=== PATIENT | female | born 1965 | race Caucasian/White ===

== ENCOUNTER 2016-08-05 14:49 | Emergency (ER) | payer OTHER ==
[2016-08-05 15:09] VITALS: BP 159/96; PULSE 90; TEMP 98.2; BMI 40.3
--- NOTE | 2016-08-05 17:13 | PDOC ---
History of Present Illness - General History Source: Patient Exam Limitations: No Limitations - History of Present Illness Initial Comments: 08/05/16 17:15 The patient is a 50 year old female, with a significant past medical history of asthma, CAD, diabetes, GERD, HTN, hypercholesterolemia, hypothyroidism, anxiety , depression, and bipolar disorder (previous suicide attempts) who was sent to the ER by her PCP and presents to the emergency department with intermittent right flank pain for 2 weeks. The patient reports the pain has been getting increasingly worse. She ranks her pain a 5/10 in pain intensity. She also has chief complaints of right ankle swelling for the st couple of days. Patient is compliant with all her medications. She denies fever, chills, headache and dizziness. She denies nausea, vomit, diarrhea and constipation. Allergies: As per Nursing Notes. Past surgical history: Social history: Current everyday smoker (8 cigarettes a day) PCP: <Mayco Krause - Last Filed: 08/05/16 17:14> <Janes Bartholomew - Last Filed: 08/05/16 19:52> - General Chief Complaint: Back Pain Stated Complaint: LOWER BACK PAIN (KIDNEY) Time Seen by Provider: 08/05/16 15:45 Past History <Mayco Krause - Last Filed: 08/05/16 17:14> - Past Medical History Anemia: No Asthma: Yes Cancer: No Cardiac Disorders: Yes (CAD) CVA: No COPD: No CHF: No Dementia: No Diabetes: Yes GI Disorders: Yes (GERD) Disorders: Yes (dropped bladder) HTN: Yes Hypercholesterolemia: Yes Liver Disease: No Psychiatric Problems: Yes (anxiety, depression, bipolar, past suicide attempts) Suicide Attempt (Hx): No Seizures: No Thyroid Disease: Yes (hypothryoidism ) - Surgical History Abdominal Surgery: Yes (lap band removed,S/P Gastric Sleeve 11/2011,2013. tata negro. Uterine prolap) Appendectomy: No Cardiac Surgery: No Cholecystectomy: Yes GI Surgery: (cystoscopy procedure) Lung Surgery: No Neurologic Surgery: (left elbow nerve release) Orthopedic Surgery: Yes (AGNIESZKA KNEE REPLACEMENT) - Family Disease History Family Disease History: Heart Disease: Father - Immunization History Td Vaccination: Yes Immunization Up to Date: Yes - Psycho/Social/Smoking Cessation Hx Anxiety: Yes Suicidal Ideation: No Smoking Status: Yes Smoking History: Current every day smoker Years of Tobacco Use: 5 Have you smoked in the past 12 months: Yes Number of Cigarettes Smoked Daily: 10 If you are a former smoker, when did you quit?: April 2011 Cigars Per Day: 0 Information on smoking cessation initiated: No 'Breaking Loose' booklet given: 01/21/15 Hx Alcohol Use: No Drug/Substance Use Hx: No Substance Use Type: None Hx Substance Use Treatment: No <Janes Bartholomew - Last Filed: 08/05/16 19:52> - Past Medical History Allergies/Adverse Reactions: Allergies Allergy/AdvReac Type Severity Reaction Status Date / Time iodine [Iodine] Allergy Rash Verified 05/29/16 10:26 CT iv contrats dye Allergy Severe Rash Uncoded 05/29/16 10:26 Home Medications: Ambulatory Orders Albuterol Sulfate Inhaler - [Ventolin HFA Inhaler -] 2 inh IH ASDIR PRN Amlodipine Besylate/Benazepril [Lotrel 5-40 mg Capsule] 10 - 40 mg PO DAILY Aripiprazole [Abilify -] 30 mg PO AM 11/16/14 Bupropion HCl [Wellbutrin Xl -] 300 mg PO AM 11/16/14 Levothyroxine [Synthroid -] 25 mcg PO DAILY 11/16/14 Salmeterol/Fluticasone [Advair 100Mcg/50Mcg -] 1 unit IH DAILY 11/16/14 Exenatide [Byetta] 5 units SQ BID 01/22/15 Atorvastatin Ca [Lipitor] 10 mg PO HS 10/13/15 Sertraline HCl [Zoloft] 100 mg PO DAILY 10/13/15 Levofloxacin [Levaquin] 750 mg PO DAILY #10 tablet 08/05/16 Phenazopyridine HCl [Pyridium] 200 mg PO TID #9 tablet 08/05/16 Review of Systems - Review of Systems Able to Perform ROS?: Yes Comments:: 08/05/16 17:15 GENERAL/CONSTITUTIONAL: No fever or chills. No weakness. HEAD, EYES, EARS, NOSE AND THROAT: No change in vision. No ear pain or discharge. No sore throat. CARDIOVASCULAR: No chest pain or shortness of breath. RESPIRATORY: No cough, wheezing, or hemoptysis. GASTROINTESTINAL: No nausea, vomiting, diarrhea or constipation. GENITOURINARY: No dysuria, frequency, or change in urination. MUSCULOSKELETAL: Yes lower back/flank pain and right foot pain. No joint or muscle swelling or pain. No neck. SKIN: No rash NEUROLOGIC: No headache, vertigo, loss of consciousness, or change in strength/ sensation. ENDOCRINE: No increased thirst. No abnormal weight change. HEMATOLOGIC/LYMPHATIC: No anemia, easy bleeding, or history of blood clots. ALLERGIC/IMMUNOLOGIC: No hives or skin allergy. <Mayco Krause - Last Filed: 08/05/16 17:14> *Physical Exam - Vital Signs Last Vital Signs Temp Pulse Resp BP Pulse Ox 98.2 F 90 16 159/96 98 08/05/16 15:05 08/05/16 15:05 08/05/16 15:05 08/05/16 15:05 08/05/16 15:05 - Physical Exam Comments: 08/05/16 17:15 GENERAL: Awake, alert, and fully oriented, in no acute distress HEAD: No signs of trauma EYES: PERRLA, EOMI, sclera anicteric, conjunctiva clear ENT: Auricles normal inspection, hearing grossly normal, nares patent, oropharynx clear without exudates. Moist mucosa NECK: Normal ROM, supple, no lymphadenopathy, JVD, or masses LUNGS: Breath sounds equal, clear to auscultation bilaterally. No wheezes, and no crackles HEART: Regular rate and rhythm, normal S1 and S2, no murmurs, rubs or gallops ABDOMEN: Soft, nontender, normoactive bowel sounds. No guarding, no rebound. No masses EXTREMITIES: Normal range of motion, no edema. No clubbing or cyanosis. No cords, erythema, or tenderness NEUROLOGICAL: Cranial nerves II through XII grossly intact. Normal speech, normal gait SKIN: Warm, Dry, normal turgor, no rashes or lesions noted. <Mayco Krause - Last Filed: 08/05/16 17:14> - Vital Signs Last Vital Signs Temp Pulse Resp BP Pulse Ox 98.2 F 90 16 159/96 98 08/05/16 15:05 08/05/16 15:05 08/05/16 15:05 08/05/16 15:05 08/05/16 15:05 <Janes Bartholomew - Last Filed: 08/05/16 19:52> ED Treatment Course - LABORATORY CBC & Chemistry Diagram: 08/05/16 17:10 08/05/16 17:10 - RADIOLOGY Radiology Studies Ordered: Category Date Time Status ABDOMEN & PELVIS CT W/O CONTR [CT] Stat CT Scan 08/05/16 17:07 Ordered <Janes Bartholomew - Last Filed: 08/05/16 19:52> *DC/Admit/Observation/Transfer - Attestations Scribe Attestion: 08/05/16 17:15 Documentation prepared by Mayco Krause, acting as medical interpreter for Janes Bartholomew DO. <Mayco Krause - Last Filed: 08/05/16 17:14> - Discharge Dispostion Admit: No - Attestations Physician Attestion: 08/05/16 17:13 I, Dr. Janes Bartholomew, attest that this document has been prepared under my direction and personally reviewed by me in its entirety. I further attest, that it accurately reflects all work, treatment, procedures and medical decision -making performed by me. <Janes Bartholomew - Last Filed: 08/05/16 19:52> Diagnosis at time of Disposition: Urinary tract infection Qualifiers: Urinary tract infection type: site unspecified Hematuria presence: without hematuria Qualified Code(s): N39.0 - Urinary tract infection, site not specified - Discharge Dispostion Disposition: HOME Condition at time of disposition: Good - Prescriptions Prescriptions: Levofloxacin [Levaquin] 750 mg PO DAILY #10 tablet Phenazopyridine HCl [Pyridium] 200 mg PO TID #9 tablet - Referrals Referrals: Rosa Clement MD [Primary Care Provider] - - Patient Instructions Printed Discharge Instructions: DI for Urinary Tract Infection (UTI) Additional Instructions: Gwendolyn- Sorry this is so uncomfortable- THe pyridium will turn your urine orange- Use a pad or panty liner Return to us if any problems Follow up with Dr. Clement next week Best- Dr. Janes Bartholomew
[2016-08-05 17:22] LABS: URINE APPEARANCE CLEAR; URINE BILIRUBIN NEGATIVE (NEGATIVE); URINE BLOOD NEGATIVE (NEGATIVE); URINE COLOR STRAW; URINE GLUCOSE (UA) NEGATIVE (NEGATIVE); URINE KETONE NEGATIVE (NEGATIVE); URINE NITRITE NEGATIVE (NEGATIVE); URINE PROTEIN NEGATIVE (NEGATIVE); URINE UROBILINOGEN NEGATIVE E.U./dl (0.2-1.0)
[2016-08-05 17:23] LABS: BASOPHIL 1.4 % (0-2.0); EOSINOPHIL 5.3 % (0-4.5); MCH 26.4 pg (25.7-33.7); MCHC 32.6 g/dl (32.0-36.0); MEAN CELL VOLUME 80.9 fl (80-96); MEAN PLT VOLUME 8.9 fl (7.5-11.1); NEUTROPHILS 75.3 % (42.8-82.8); PLATELET COUNT 271 K/MM3 (134-434); RDW 15.7 % (11.6-15.6); WHITE BLOOD COUNT 13.1 K/mm3 (4.0-10.0)
[2016-08-05 17:55] LABS: ALBUMIN 3.6 g/dl (3.4-5.0); ALK PHOS 108 U/L (45-117); ANION GAP 12 (8-16); BILIRUBIN,TOTAL 0.3 mg/dL (0.2-1.0); CO2 25 mmol/L (21-32); CREATININE 0.8 mg/dL (0.55-1.02); GLUCOSE,RANDOM 182 mg/dL (74-106); SGOT/AST 14 U/L (15-37); SGPT/ALT 15 U/L (12-78); TOT PROT 7.8 g/dl (6.4-8.2)
[2016-08-05 19:28] LABS: URINE LEUK ESTERASE 2+ (NEGATIVE)
== END 2016-08-05 20:52 | disposition home or self-care (01) ==
LOC: JER 14:49
DX: N39.0 Urinary tract infection, site not specified (principal); F17.210 Nicotine dependence, cigarettes, uncomplicated; Z98.84 Bariatric surgery status; Z96.653 Presence of artificial knee joint, bilateral; I10 Essential (primary) hypertension; Z91.5 Personal history of self-harm; F41.8 Other specified anxiety disorders; E03.9 Hypothyroidism, unspecified
CPT/HCPCS: 36415; 74176-TC; 80053; 81003; 81015; 83690; 85025; 87086; 99283-25

== ENCOUNTER 2017-04-02 15:28 | Emergency (ER) | payer OTHER ==
[2017-04-02 15:41] VITALS: BP 151/81; PULSE 69; TEMP 98; BMI 36.7
[2017-04-02] MEDS ORDERED: SODIUM CHLORIDE 1,000 ML IV ONE (16:16)
[2017-04-02 17:01] LABS: BASOPHIL 0.1 % (0-2.0); EOSINOPHIL 3.4 % (0-4.5); MCH 26.9 pg (25.7-33.7); MCHC 32.7 g/dl (32.0-36.0); MEAN CELL VOLUME 82.2 fl (80-96); MEAN PLT VOLUME 8.6 fl (7.5-11.1); NEUTROPHILS 66.2 % (42.8-82.8); PLATELET COUNT 306 K/MM3 (134-434)
--- NOTE | 2017-04-02 17:02 | PDOC ---
History of Present Illness - General Chief Complaint: Diarrhea Stated Complaint: DIARRHEA Time Seen by Provider: 04/02/17 16:16 History Source: Patient Exam Limitations: No Limitations - History of Present Illness Travel History: No Initial Comments: 04/02/17 17:13 51y F hx of htn, dm, asthma, psoriasis, approx 1 month sp gastric bypass pressents with diarrhea. The pt endorses chronic diarrhea x many months, but states after her bypass she has been having more frequent episodes. it is watery , not bloody/black/tarry. Pt endorses minmal nausea, denies any fever/chills, vomiting, abd pain, back pain, cough, chest pain, sob, diaphoresis. Pt endorses recent admissinon for this at [facility]. her bariatric surgeon is at [place]. No recent travel no sick contacts no recent abx no new meds Past History - Past Medical History Allergies/Adverse Reactions: Allergies Allergy/AdvReac Type Severity Reaction Status Date / Time iodine [Iodine] Allergy Rash Verified 04/02/17 16:51 CT iv contrats dye Allergy Severe Rash Uncoded 04/02/17 16:51 Home Medications: Ambulatory Orders Amlodipine Besylate/Benazepril [Amlodipine-Benazepril 5-10 Mg] 1 each PO DAILY capsule 11/22/12 Albuterol Sulfate Inhaler - [Ventolin HFA Inhaler -] 2 inh IH ASDIR PRN Amlodipine Besylate/Benazepril [Lotrel 5-40 mg Capsule] 10 - 40 mg PO DAILY Aripiprazole [Abilify -] 30 mg PO AM 11/16/14 Bupropion HCl [Wellbutrin Xl -] 300 mg PO AM 11/16/14 Levothyroxine [Synthroid -] 25 mcg PO DAILY 11/16/14 Salmeterol/Fluticasone [Advair 100Mcg/50Mcg -] 1 unit IH DAILY 11/16/14 Exenatide [Byetta] 5 units SQ BID 01/22/15 Atorvastatin Ca [Lipitor] 10 mg PO HS 10/13/15 Sertraline HCl [Zoloft] 100 mg PO DAILY 10/13/15 Phenazopyridine HCl [Pyridium] 200 mg PO TID #9 tablet 08/05/16 Anemia: No Asthma: Yes Cancer: No Cardiac Disorders: Yes (CAD) CVA: No COPD: No CHF: No Dementia: No Diabetes: Yes GI Disorders: Yes (GERD) Disorders: Yes (dropped bladder) HTN: Yes Hypercholesterolemia: Yes Liver Disease: No Psychiatric Problems: Yes (anxiety, depression, bipolar, past suicide attempts) Seizures: No Thyroid Disease: Yes (hypothryoidism ) - Surgical History Abdominal Surgery: Yes (lap band removed,S/P Gastric Sleeve 11/2011,2013. tummy tuck. Uterine prolap) Appendectomy: No Cardiac Surgery: No Cholecystectomy: Yes Gastric Stapling: Yes (gastric bip[ass 02/13/17) GI Surgery: (cystoscopy procedure) Lung Surgery: No Neurologic Surgery: (left elbow nerve release) Orthopedic Surgery: Yes (AGNIESZKA KNEE REPLACEMENT) - Family Disease History Family Disease History: Heart Disease: Father - Immunization History Td Vaccination: Yes Immunization Up to Date: Yes - Suicide/Smoking/Psychosocial Hx Smoking Status: Yes Smoking History: Former smoker Years of Tobacco Use: 5 Have you smoked in the past 12 months: Yes Number of Cigarettes Smoked Daily: 10 If you are a former smoker, when did you quit?: April 2011 Cigars Per Day: 0 Information on smoking cessation initiated: No 'Breaking Loose' booklet given: 01/21/15 Hx Alcohol Use: No Drug/Substance Use Hx: No Substance Use Type: None Hx Substance Use Treatment: No Abd/GI Specific PMHX - Complaint Specific PMHX GERD: Yes Review of Systems - Review of Systems Able to Perform ROS?: Yes Comments:: 04/02/17 17:15 Constitutional - no reported Fever, Chills, HEENT: no reported vision changes, sore throat Respiratory: no reported cough, sob, hemoptysis Cardiac: no reported chest pain, palpitations, light headedness, leg swelling Abd/GI: +diarrhea no reported abd pain, nausea, vomiting, blood per rectum, melena, : no reported dysuria, frequency, discharge Musculskelatal - no reported back pain, joint swelling skin - no reported bruising, erythema, rash neurological: no reported headache, numbness, focal weakness, tingling, ataxia, hematologic: no reported anemia, easy bruising, easy bleeding *Physical Exam - Vital Signs Last Vital Signs Temp Pulse Resp BP Pulse Ox 98 F 69 2 L 151/81 98 04/02/17 15:37 04/02/17 15:37 04/02/17 15:37 04/02/17 15:37 04/02/17 15:37 - Physical Exam Comments: 04/02/17 17:18 GENERAL: The patient is awake, alert, and fully oriented, Nontoxic - in no acute distress. morbidly obese HEAD: Normocephalic, atraumatic. EYES: extraocular movements intact, sclera anicteric, conjunctiva clear. ENT: Normal voice, Moist mucous membranes. NECK: Normal range of motion, supple LUNGS: Breath sounds equal, clear to auscultation bilaterally. No wheezes, no rhonchi, no rales. HEART: Regular rate and rhythm, normal S1 and S2 without murmur, rub or gallop. ABDOMEN: Soft, nontender, normoactive bowel sounds. No guarding, no rebound. . No CVA tenderness EXTREMITIES: Normal range of motion, no edema. No clubbing or cyanosis. No cords, erythema, or tenderness. NEUROLOGICAL: No facial assymetry, Normal speech, PSYCH: Normal mood, normal affect. SKIN: Warm, Dry, normal turgor, ED Treatment Course - LABORATORY CBC & Chemistry Diagram: 04/02/17 16:50 04/02/17 16:50 Medical Decision Making - Medical Decision Making 04/02/17 17:19 51y F presenting with diarrhea w/o pain fever, vomiting pt otherwise well appearing with unremarkable exam vitals normal will obtain blood work to r/o anemia, metabolic dernagement will give fluid for hydration 04/02/17 19:12 pt feeling improved labs unremarkble will hvae pt fu with her GI for her diarrhea I discussed the physical exam findings, ancillary test results and final diagnoses with the patient. I answered all of the patient's questions. The patient was satisfied with the care received and felt comfortable with the discharge plan and treatment plan. The patient will call their primary care physician within 24 hours to arrange follow-up and will return to the Emergency Department with any new, persistent or worsening symptoms. *DC/Admit/Observation/Transfer Diagnosis at time of Disposition: Diarrhea Qualifiers: Diarrhea type: unspecified type Qualified Code(s): R19.7 - Diarrhea, unspecified - Discharge Dispostion Disposition: HOME Condition at time of disposition: Improved Admit: No - Referrals Referrals: William Sutton [Primary Care Provider] - - Patient Instructions Printed Discharge Instructions: DI for Diarrhea and Traveler's Diarrhea -- Adult Additional Instructions: Return to the emergency department immediately with ANY new, persistent or worsening symptoms. You MUST call and follow up with your doctor tomorrow for further evaluation of your symptoms. Results were discussed with you. Please make sure your doctor reviews the results of your emergency evaluation. If you had any xrays during your visit, it was read preliminarily by myself, a Radiologist will review it and if there are any additional findings we will call you. Print Language: ROMANIAN
[2017-04-02 17:03] LABS: URINE APPEARANCE CLOUDY; URINE BILIRUBIN NEGATIVE (NEGATIVE); URINE BLOOD NEGATIVE (NEGATIVE); URINE COLOR YELLOW; URINE GLUCOSE (UA) NEGATIVE (NEGATIVE); URINE KETONE NEGATIVE (NEGATIVE); URINE NITRITE NEGATIVE (NEGATIVE); URINE PROTEIN NEGATIVE (NEGATIVE); URINE UROBILINOGEN NEGATIVE mg/dL (0.2-1.0)
[2017-04-02 18:11] LABS: ALBUMIN 3.8 g/dl (3.4-5.0); ALK PHOS 105 U/L (45-117); ANION GAP 10 (8-16); BILIRUBIN,TOTAL 0.3 mg/dL (0.2-1.0); CO2 24 mmol/L (21-32); CREATININE 0.8 mg/dL (0.55-1.02); GLUCOSE,RANDOM 96 mg/dL (74-106); SGOT/AST 22 U/L (15-37); SGPT/ALT 24 U/L (12-78); TOT PROT 8.3 g/dl (6.4-8.2)
[2017-04-02 22:15] LABS: URINE LEUK ESTERASE 1+ (NEGATIVE)
== END 2017-04-02 19:23 | disposition home or self-care (01) ==
LOC: JER 15:28
PROC: 3E0337Z Introduction of Electrolytic and Water Balance Substance into Peripheral Vein, Percutaneous Approach (ICD-10-PCS; principal; 2017-04-02)
DX: R19.7 Diarrhea, unspecified (principal); J45.909 Unspecified asthma, uncomplicated; E11.9 Type 2 diabetes mellitus without complications; K21.9 Gastro-esophageal reflux disease without esophagitis; F41.8 Other specified anxiety disorders; F31.9 Bipolar disorder, unspecified
CPT/HCPCS: 36415; 80053; 81003; 81015; 85025; 96360; 99282-25

== ENCOUNTER 2017-06-14 05:45 | Emergency (ER) | payer OTHER ==
[2017-06-14 06:01] VITALS: BMI 36.0
--- NOTE | 2017-06-14 06:20 | PDOC ---
History of Present Illness - General Chief Complaint: Pain Stated Complaint: EAR PAIN/HEAD PAIN Time Seen by Provider: 06/14/17 06:07 History Source: Patient Exam Limitations: No Limitations - History of Present Illness Initial Comments: This is a 51 YOF with h/o IDDM, asthma, CAD GERD, HTN, HLD, hypothyroidism, anxiety, depression, and bipolar disorder, and prior attempted suicide who presents with 10/10 right ear pain radiating to the right posterior head since 7pm last night (06/13). She took a Percocet from her 's prior prescription without relief. She also put hydrogen peroxide in the ear and attempted to clean it iwth q-tips. She additionally notes right-sided headache and nausea, but denies any fever, vomiting, chest pain, palpitations, SOB, abdominal pain, trouble balancing, or other symptoms. She had not had ear infections in her adult life. She is supposed to be on medications for HTN and IDDM but states that she has not been taking them because she is depressed. Past History - Past Medical History Allergies/Adverse Reactions: Allergies Allergy/AdvReac Type Severity Reaction Status Date / Time iodine [Iodine] Allergy Rash Verified 06/14/17 06:16 CT iv contrats dye Allergy Severe Rash Uncoded 06/14/17 06:16 Home Medications: Ambulatory Orders Amlodipine Besylate/Benazepril [Amlodipine-Benazepril 5-10 Mg] 1 each PO DAILY capsule 11/22/12 Albuterol Sulfate Inhaler - [Ventolin HFA Inhaler -] 2 inh IH ASDIR PRN Aripiprazole [Abilify -] 30 mg PO AM 11/16/14 Bupropion HCl [Wellbutrin Xl -] 300 mg PO AM 11/16/14 Levothyroxine [Synthroid -] 25 mcg PO DAILY 11/16/14 Salmeterol/Fluticasone [Advair 100Mcg/50Mcg -] 1 unit IH DAILY 11/16/14 Atorvastatin Ca [Lipitor] 10 mg PO HS 10/13/15 Sertraline HCl [Zoloft] 100 mg PO DAILY 10/13/15 Anemia: No Asthma: Yes Cancer: No Cardiac Disorders: Yes (CAD) CVA: No COPD: No CHF: No Dementia: No Diabetes: Yes GI Disorders: Yes (GERD) Disorders: Yes (dropped bladder) HTN: Yes Hypercholesterolemia: Yes Liver Disease: No Psychiatric Problems: Yes (anxiety, depression, bipolar, past suicide attempts) Seizures: No Thyroid Disease: Yes (hypothryoidism ) - Surgical History Abdominal Surgery: Yes (lap band removed,S/P Gastric Sleeve 11/2011,2013. tummy tuck. Uterine prolap) Appendectomy: No Cardiac Surgery: No Cholecystectomy: Yes Gastric Stapling: Yes (gastric bip[ass 02/13/17) GI Surgery: Yes (cystoscopy procedure) Lung Surgery: No Neurologic Surgery: Yes (left elbow nerve release) Orthopedic Surgery: Yes (AGNIESZKA KNEE REPLACEMENT) - Family Disease History Family Disease History: Heart Disease: Father - Immunization History Td Vaccination: Yes Immunization Up to Date: Yes - Suicide/Smoking/Psychosocial Hx Smoking Status: Yes Smoking History: Never smoked Years of Tobacco Use: 5 Have you smoked in the past 12 months: Yes Number of Cigarettes Smoked Daily: 10 If you are a former smoker, when did you quit?: April 2011 Cigars Per Day: 0 Information on smoking cessation initiated: No 'Breaking Loose' booklet given: 01/21/15 Hx Alcohol Use: No Drug/Substance Use Hx: No Substance Use Type: None Hx Substance Use Treatment: No Review of Systems - Review of Systems Able to Perform ROS?: Yes Constitutional: No: Chills, Fever, Unexplained wgt Loss HEENTM: Yes: Ear Pain (right). No: Nose Congestion, Throat Pain Respiratory: No: Cough, Shortness of Breath Cardiac (ROS): No: Chest Pain, Palpitations ABD/GI: No: Constipated, Diarrhea, Nausea, Vomiting : No: Burning, Dysuria Musculoskeletal: No: Back Pain, Neck Pain Integumentary: No: Bruising, Rash Neurological: Yes: Headache. No: Numbness, Tingling, Weakness, Dizziness Endocrine: No: Unexplained Weight Gain, Unexplained Weight Loss *Physical Exam - Vital Signs Last Vital Signs Temp Pulse Resp BP Pulse Ox 98.0 F 63 18 211/83 96 06/14/17 05:58 06/14/17 05:58 06/14/17 05:58 06/14/17 05:58 06/14/17 05:58 - Physical Exam General Appearance: Yes: Nourished, Mild Distress, Other (pleasant but intermittently tearful obese adult female, answering questions appropriatley, states is depressed, smells of marijuana) HEENT: positive: EOMI, JUDAH, Normal Voice, Hearing Grossly Normal, Other ( bilateral cerumen impaction, mild tenderness to manipulation of the right tragus , mild tenderness to percussion of the right mastoid process, riht submandibular mild lymphadenopathy, no sinus tenderness to palpation, ). negative: Scleral Icterus (R), Scleral Icterus (L), Nasal Congestion Neck: positive: Trachea midline, Supple. negative: Tender, Rigid Respiratory/Chest: positive: Lungs Clear, Normal Breath Sounds. negative: Respiratory Distress, Crackles, Rhonchi, Stridor, Wheezing Cardiovascular: positive: Regular Rhythm, Regular Rate. negative: Murmur Gastrointestinal/Abdominal: positive: Normal Bowel Sounds, Soft, Protuberent. negative: Tender, Organomegaly, Pulsatile Mass, Guarding Musculoskeletal: positive: Normal Inspection. negative: Decreased Range of Motion, Vertebral Tenderness Extremity: positive: Normal Capillary Refill, Normal Inspection, Normal Range of Motion. negative: Tender, Cyanosis Integumentary: positive: Normal Color, Dry, Warm. negative: Erythema, Rash, Bruising Neurologic: positive: it sales representative II-XII NML intact (grossly), Fully Oriented, Alert, Normal Mood/Affect, Normal Response, Motor Strength 5/5 ED Treatment Course - LABORATORY CBC & Chemistry Diagram: 06/14/17 06:36 06/14/17 06:36 Medical Decision Making - Medical Decision Making This is a 51 YOF with h/o IDDM, HTN, anxiety, depression, bipolar disorder, prior attempted suicide, p/w right ear pain. On exam VS notable for BP elevated to 211/83, afebrile, otherwise within normal limits. On exam she has bilateral cerumen impaction, right tragus tender to manipulation , right mastoid ttp, right submandubilar LAD. DDX IBNLT right OM/OE, /mastoiditis, sinusitis, temporal arteritis (unlikely), intracranial extension of infection, hypertensive emergency. Ordered is CBCD, CMP, cardiac panel, coags, TSH, EKG, NTG. Patient's ear will be soaked with peroxide and irrigated with warm saline, then re-examined. 06/14/17 07:01 Right ear cerumen is disimpacted and the deep EAC does have some initial redness. Patient's care is signed out to oncoming team awaiting lab results. *DC/Admit/Observation/Transfer Diagnosis at time of Disposition: Earlene galarzaion - Referrals Referrals: William Sutton [Primary Care Provider] - Pipe Levi MD [Staff Physician] - - Patient Instructions - Post Discharge Activity
[2017-06-14] MEDS ORDERED: NITROGLYCERIN SUBLINGUAL 1/150 0.4 MG TAB SL ONE (06:29)
[2017-06-14] MEDS ORDERED: NITROGLYCERIN 2% OINTMENT - 1GM PACKET TD ONE ×2 (06:33→06:44)
--- NOTE | 2017-06-14 06:33 | PDOC ---
Attending Attestation - Resident Resident Name: BrentonStacy - ED Attending Attestation I have performed the following: I have examined & evaluated the patient, The case was reviewed & discussed with the resident, I agree w/resident's findings & plan - HPI HPI: 06/14/17 06:30 Pt comes with bilateral cerumen impaction and bilateral ear pain. She has elevated BP on arrival and states that she doesn't take her DM or HTN meds as she has been sepressed. Her PMD is Dr. Sutton. She smells of marijuana, and when asked she admits that she smokes pot as well as tobacco. Pt is tearful. Pt was given 2 SLNTG. Pt will have labs and EKG and workup, while we attempt to remove wax from her ear canals with peroxide and flushes
[2017-06-14 06:52] LABS: BASO % 1.3 % (0-2.0); EOS % 1.7 % (0-4.5); MCH 26.2 pg (25.7-33.7); MCHC 31.9 g/dl (32.0-36.0); NEUT % 76.6 % (42.8-82.8); PLATELET COUNT 266 K/MM3 (134-434); RDW 14.7 % (11.6-15.6); WHITE BLOOD COUNT 14.3 K/mm3 (4.0-10.0)
[2017-06-14 07:07] LABS: INR 1.14 (0.82-1.09); PROTHROMBIN TIME (PATIENT) 12.9 SEC (9.98-11.88)
[2017-06-14 07:22] LABS: CPK 128 IU/L (26-192); TROPONIN I < 0.02 ng/ml (0.00-0.05)
[2017-06-14 07:30] LABS: ALBUMIN 3.9 g/dl (3.4-5.0); ALK PHOS 111 U/L (45-117); ANION GAP 7 (8-16); BILIRUBIN,TOTAL 0.6 mg/dL (0.2-1.0); CALCIUM 8.9 mg/dL (8.5-10.1); CO2 27 mmol/L (21-32); CREATININE 0.7 mg/dL (0.55-1.02); GLUCOSE,RANDOM 118 mg/dL (74-106); SGOT/AST 15 U/L (15-37); SGPT/ALT 17 U/L (12-78); TOT PROT 8.4 g/dl (6.4-8.2)
--- NOTE | 2017-06-14 07:33 | PDOC ---
*Physical Exam - Vital Signs Last Vital Signs Temp Pulse Resp BP Pulse Ox 98.0 F 63 18 192/80 96 06/14/17 05:58 06/14/17 05:58 06/14/17 05:58 06/14/17 06:24 06/14/17 05:58 - Physical Exam Comments: 06/14/17 09:35 General Appearance: Nourished. No Apparent Distress HEENT: EOMI, JUDAH. No Pharyngeal Erythema, Tonsillar Exudate, Tonsillar Erythema Neck: No Cervical Lymphadenopathy Respiratory/Chest: Lungs Clear, Normal Breath Sounds. No Crackles, Rales, Rhonchi, Wheezing Cardiovascular: Regular Rhythm, Regular Rate. No Murmur, Gallops, Rubs Gastrointestinal/Abdominal: Normal Bowel Sounds, Soft. No Guarding, Rebound, Tenderness Musculoskeletal: No CVA Tenderness Extremity: Normal Capillary Refill Integumentary: Normal Color, Dry, Warm Neurologic: drywall professional II-XII NML intact, Fully Oriented, Alert, Normal Mood/Affect, Normal Response, Motor Strength 5/5. ED Treatment Course - LABORATORY CBC & Chemistry Diagram: 06/14/17 06:36 06/14/17 06:36 - ADDITIONAL ORDERS Additional order review: Laboratory Results 06/14/17 06/14/17 06:36 06:36 PT with INR 12.90 H INR 1.14 PTT (Actin FS) 26.7 L 06/14/17 06:36 RBC 5.34 H MCV 82.0 MCHC 31.9 L RDW 14.7 MPV 9.0 Neutrophils % 76.6 Lymphocytes % 16.1 D Monocytes % 4.3 Eosinophils % 1.7 Basophils % 1.3 D - Medications Given in the ED: ED Medications Discontinued Medications Generic Name Dose Route Start Last Admin Trade Name Freq PRN Reason Stop Dose Admin Nitroglycerin 0.8 mg 06/14/17 06:29 06/14/17 06:40 Nitrostat - SL 06/14/17 06:30 0.8 mg ONCE ONE Administration Nitroglycerin 1 inch 06/14/17 06:33 06/14/17 06:46 Nitro-Bid 2% Paste - TD 06/14/17 06:34 1 inch ONCE ONE Administration Progress Note - Progress Note Progress Note: The patient is a 51 year old female with a history of DM who present for evaluation of sudden onset right ear pain found to have cerum impaction and an elevated BP to over 200 systolic in triage. CBC was remarkable for a leukocytosis, but otherwise lab results are unremarkable. Patient is pending a ct head and temporal bones to evaluate for intracranial process and mastoditis. Dispo pending ct results. Medical Decision Making - Medical Decision Making 06/14/17 11:00 CT results demonstrate signs of acute sinusitis. The patient's symptoms are likely due to a combination of sinusitis and otitis media. The patient reports clinical improvement in her symptoms while here in the ED. We are comfortable discharging the patient home with augmentin for management at this time. We discussed the results and the plan with the patient who voiced understanding and is agreeable with the plan. *DC/Admit/Observation/Transfer Diagnosis at time of Disposition: Cerumen impaction Qualifiers: Laterality: right Qualified Code(s): H61.21 - Impacted cerumen, right ear Otitis media Qualifiers: Otitis media type: unspecified Chronicity: acute Qualified Code(s): H66.90 - Otitis media, unspecified, unspecified ear - Discharge Dispostion Disposition: HOME Condition at time of disposition: Improved Admit: No - Prescriptions Prescriptions: Amox-Tr/K Cl [Augmentin - 875Mg Tablet] 1 tab PO BID #14 tablet Naproxen [Naprosyn -] 500 mg PO BID PRN #14 tablet PRN Reason: Pain - Referrals Referrals: William Sutton [Primary Care Provider] - Pipe Levi MD [Staff Physician] - - Patient Instructions Printed Discharge Instructions: DI for Ear Pain-Adult Additional Instructions: Please return to the ER if you experience concerning or worsening symptoms including worsening fevers, chills, or headache. You were seen in the ER for right ear pain. You lab results demonstrated signs of an infection and your ct scan results were negative. It is likely your symptoms are due to an ear infection. We have sent a prescription of antibiotics to your pharmacy that you should take twice a day for 7 days. We have also sent a prescription for naproxen that you can use as needed for pain management. Please call to schedule a follow up appointment with your primary care provider within 1 week to discuss your ER visit. - Post Discharge Activity
[2017-06-14] MEDS ORDERED: ACETAMINOPHEN 500 MG TABLET (FP) PO ONE (07:51)
[2017-06-14] MEDS ORDERED: ACETAMINOPHEN 325 MG TABLET (FP) ONE (07:55)
[2017-06-14 10:27] VITALS: BP 145/76; PULSE 60; TEMP 98
[2017-06-14 10:41] LABS: URINE MARIJUANA THC POSITIVE ng/ml (CUTOFF=50)
--- NOTE | 2017-06-15 01:26 | EKG ---
Test Reason : Blood Pressure : / mmHG Vent. Rate : 055 BPM Atrial Rate : 055 BPM P-R Int : 138 ms QRS Dur : 092 ms QT Int : 414 ms P-R-T Axes : 066 044 059 degrees QTc Int : 396 ms SINUS BRADYCARDIA OTHERWISE NORMAL ECG WHEN COMPARED WITH ECG OF 22-JAN-2015 07:56, VENT. RATE HAS DECREASED Confirmed by MARK JADE MD ([id number]) on 06/15/2017 1:26:09 AM Referred By: Confirmed By:MARK JADE MD
== END 2017-06-14 09:55 | disposition home or self-care (01) ==
LOC: JER 05:45
DX: H61.21 Impacted cerumen, right ear (principal); I10 Essential (primary) hypertension; E10.9 Type 1 diabetes mellitus without complications; Z79.4 Long term (current) use of insulin; J45.909 Unspecified asthma, uncomplicated; E03.9 Hypothyroidism, unspecified; F41.8 Other specified anxiety disorders; F31.9 Bipolar disorder, unspecified
CPT/HCPCS: 36415; 70450-TC; 70480-TC; 80053; 80307; 82550; 84443; 84484; 85025; 85610; 85730; 93005; 93010; 99283-25

== ENCOUNTER 2017-07-31 18:09 | Emergency (ER) | payer OTHER ==
[2017-07-31 18:37] VITALS: PULSE 72; TEMP 98.7; BMI 35.2
--- NOTE | 2017-07-31 20:21 | PDOC ---
History of Present Illness - General Chief Complaint: Blood Pressure Problem Stated Complaint: BLOOD PRESSURE Time Seen by Provider: 07/31/17 19:09 History Source: Patient Exam Limitations: No Limitations - History of Present Illness Initial Comments: This is a 51 YOF with h/o HTN (not taking her medications x3 days), DM, left arm neuropathic pain, suicide attempt via OD who presents c/o elevated blood pressure at home which is worsened beyond her baseline today, as well as 2-3 hours of constant sweats and mild bitemporal headache. She notes having been seen recently at [facility] for similar symptoms while having simultaneous exacerbated left arm pain, was given an injection of Dilaudid, and got significant relief from this medication. She denies any recent fever, chills, nausea, vomiting, chest pain, shortness of breath, abdominal pain, vision changes, or new numbness/tingling/focal weakness. Past History - Past Medical History Allergies/Adverse Reactions: Allergies Allergy/AdvReac Type Severity Reaction Status Date / Time iodine [Iodine] Allergy Rash Verified 07/31/17 18:22 CT iv contrats dye Allergy Severe Rash Uncoded 07/31/17 18:22 Home Medications: Ambulatory Orders Amlodipine Besylate/Benazepril [Amlodipine-Benazepril 5-10 Mg] 1 each PO DAILY capsule 11/22/12 Albuterol Sulfate Inhaler - [Ventolin HFA Inhaler -] 2 inh IH ASDIR PRN Aripiprazole [Abilify -] 30 mg PO AM 11/16/14 Bupropion HCl [Wellbutrin Xl -] 300 mg PO AM 11/16/14 Levothyroxine [Synthroid -] 25 mcg PO DAILY 11/16/14 Salmeterol/Fluticasone [Advair 100Mcg/50Mcg -] 1 unit IH DAILY 11/16/14 Atorvastatin Ca [Lipitor] 10 mg PO HS 10/13/15 Sertraline HCl [Zoloft] 100 mg PO DAILY 10/13/15 Amox-Tr/K Cl [Augmentin - 875Mg Tablet] 1 tab PO BID #14 tablet 06/14/17 Naproxen [Naprosyn -] 500 mg PO BID PRN #14 tablet 06/14/17 Ciprofloxacin HCl [Cipro] 500 mg PO BID #9 tablet 08/01/17 Anemia: No Asthma: Yes Cancer: No Cardiac Disorders: Yes (CAD) CVA: No COPD: No CHF: No Dementia: No Diabetes: Yes GI Disorders: Yes (GERD) Disorders: Yes (dropped bladder) HTN: Yes Hypercholesterolemia: Yes Liver Disease: No Psychiatric Problems: Yes (anxiety, depression, bipolar, past suicide attempts) Seizures: No Thyroid Disease: Yes (hypothryoidism ) - Surgical History Abdominal Surgery: Yes (lap band removed,S/P Gastric Sleeve 11/2011,2013. tummy tuck. Uterine prolap) Appendectomy: No Cardiac Surgery: No Cholecystectomy: Yes Gastric Stapling: Yes (gastric bip[ass 02/13/17) GI Surgery: Yes (cystoscopy procedure) Lung Surgery: No Neurologic Surgery: Yes (left elbow nerve release) Orthopedic Surgery: Yes (AGNIESZKA KNEE REPLACEMENT) - Family Disease History Family Disease History: Heart Disease: Father - Immunization History Td Vaccination: Yes Immunization Up to Date: Yes - Suicide/Smoking/Psychosocial Hx Smoking Status: Yes Smoking History: Never smoked Years of Tobacco Use: 5 Have you smoked in the past 12 months: No Number of Cigarettes Smoked Daily: 10 If you are a former smoker, when did you quit?: April 2011 Cigars Per Day: 0 Information on smoking cessation initiated: No 'Breaking Loose' booklet given: 01/21/15 Hx Alcohol Use: No Drug/Substance Use Hx: No Substance Use Type: None Hx Substance Use Treatment: No Review of Systems - Review of Systems Able to Perform ROS?: Yes Constitutional: Yes: Diaphoresis. No: Chills, Fever, Unexplained wgt Loss HEENTM: No: Nose Congestion, Throat Pain Respiratory: No: Cough, Shortness of Breath Cardiac (ROS): No: Chest Pain, Palpitations ABD/GI: No: Constipated, Diarrhea, Nausea, Vomiting : No: Burning, Dysuria Musculoskeletal: Yes: Other (left arm pain). No: Back Pain, Neck Pain Integumentary: No: Bruising, Rash Neurological: Yes: Headache. No: Numbness, Tingling, Weakness, Dizziness Endocrine: No: Unexplained Weight Gain, Unexplained Weight Loss *Physical Exam - Vital Signs Last Vital Signs Temp Pulse Resp BP Pulse Ox 98.7 F 72 17 208/104 99 07/31/17 18:23 07/31/17 18:23 07/31/17 18:23 07/31/17 18:23 07/31/17 18:23 - Physical Exam General Appearance: Yes: Nourished, Appropriately Dressed, Obese, Other (alert, awake, not diaphoretic, a bit anxious appearing, central obesity, answering questions appropriately). No: Apparent Distress HEENT: positive: EOMI, JUDAH, Normal Voice, Hearing Grossly Normal. negative: Scleral Icterus (R), Scleral Icterus (L), Nasal Congestion Neck: positive: Trachea midline, Supple. negative: Tender, Rigid Respiratory/Chest: positive: Lungs Clear, Normal Breath Sounds. negative: Respiratory Distress, Crackles, Rhonchi, Stridor, Wheezing Cardiovascular: positive: Regular Rhythm, Regular Rate. negative: Edema, JVD, Murmur Gastrointestinal/Abdominal: positive: Normal Bowel Sounds, Soft, Other (obese). negative: Tender, Organomegaly, Pulsatile Mass, Guarding Musculoskeletal: positive: Normal Inspection. negative: Decreased Range of Motion, Vertebral Tenderness Extremity: positive: Normal Capillary Refill, Normal Inspection, Normal Range of Motion. negative: Tender, Cyanosis Integumentary: positive: Normal Color, Dry, Warm. 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 negative: EOM Palsy, Facial Droop, Numbness, Sensory Deficit, Confused, Disoriented ED Treatment Course - LABORATORY CBC & Chemistry Diagram: 07/31/17 22:00 07/31/17 23:25 Medical Decision Making - Medical Decision Making 08/01/17 00:09 UA is positive for UTI. Head CT without intracranial pathology but shows sinusitis. *DC/Admit/Observation/Transfer Diagnosis at time of Disposition: UTI (urinary tract infection) Qualifiers: Urinary tract infection type: acute cystitis Hematuria presence: with hematuria Qualified Code(s): N30.01 - Acute cystitis with hematuria Sinusitis Qualifiers: Sinusitis location: unspecified location Chronicity: unspecified Qualified Code (s): J32.9 - Chronic sinusitis, unspecified Hypertension Qualifiers: Hypertension type: unspecified Qualified Code(s): I10 - Essential (primary) hypertension Chronic pain Qualifiers: Chronic pain type: other chronic pain Qualified Code(s): G89.29 - Other chronic pain - Discharge Dispostion Disposition: HOME Condition at time of disposition: Stable Admit: No - Prescriptions Prescriptions: Ciprofloxacin HCl [Cipro] 500 mg PO BID #9 tablet - Referrals Referrals: William Sutton [Primary Care Provider] - - Patient Instructions Additional Instructions: You were seen in the ER for high blood pressure and headache. We did basic blood and urine tests, an electrocardiogram, and a head CT. The only abnormalities we found were a urinary tract infection and sinusitis. We are sending an antibiotic to your pharmacy that will treat both the UTI and the sinusitis. Please take your normal blood pressure medications, and follow up with your regular doctor, or return to the ER for any new or worsening symptoms. - Post Discharge Activity
[2017-07-31] MEDS ORDERED: amLODIPine BESYLATE 10 MG TABLET (FP) PO ONE (21:32)
--- NOTE | 2017-07-31 21:33 | PDOC ---
Attending Attestation - HPI HPI: 07/31/17 22:37 The patient is a 51 year old female with a significant past medical history of asthma, IDDM, CAD, GERD, HTN, HLD hypothyroidism, anxiety, depression, and bipolar disorder who presents to the ED with complaints of elevated blood pressure since earlier today. The patient reports she has not taken her BP medication for 3 days notes her blood pressure worsened since then. The patient also reports sweats and worsening chronic left arm pain. She states she received dilaudid several days ago from [facility] with relief to symptoms. Also reports gradual onset bitemporal flores for 3 days with no photophobia. Denies chest pain or shortness of breath. Denies fever or chills. Denies weakness, numbness, abd pain, stiff neck, abd pain, LE edema - Physicial Exam PE: 07/31/17 22:37 GENERAL: Awake, alert, and fully oriented, in no acute distress HEAD: No signs of trauma EYES: PERRLA, EOMI, sclera anicteric, conjunctiva clear ENT: Auricles normal inspection, hearing grossly normal, nares patent, oropharynx clear without exudates. Moist mucosa NECK: Normal ROM, supple, no lymphadenopathy, JVD, or masses LUNGS: Breath sounds equal, clear to auscultation bilaterally. No wheezes, and no crackles HEART: Regular rate and rhythm, normal S1 and S2, no murmurs, rubs or gallops ABDOMEN: Soft, nontender, normoactive bowel sounds. No guarding, no rebound. No masses EXTREMITIES: Normal range of motion, no edema. No clubbing or cyanosis. No cords, erythema, or tenderness BACK: No midline spinal tenderness in cervical/thoracic/lumbar region NEUROLOGICAL: Normal speech, cranial nerves intact, negative pronator drift, 5/ 5 strength in all 4 extremities, normal sensation to light touch in all 4 extremities, normal cerebellar exam, normal gait, normal reflexes and tone SKIN: Warm, Dry, normal turgor, no rashes or lesions noted <León Lau - Last Filed: 07/31/17 22:37> - Resident Resident Name: Stacy Farris - ED Attending Attestation I have performed the following: I have examined & evaluated the patient, The case was reviewed & discussed with the resident, I agree w/resident's findings & plan, Exceptions are as noted - Medical Decision Making 07/31/17 21:32 51-year-old female with a history of hypertension, headache and left arm neuropathy presents with elevated blood pressure after not taking her blood pressure medications for 3 days. She also reports worsening left arm pain. Vitals remarkable for elevated blood pressure 208/104 on my exam. We will obtain basic labs, CT head, and give home dose of blood pressure medication and reassess. 08/01/17 00:[address] scan of the head is negative for acute pathology, and shows possible sinusitis. Given patient's headache is bitemporal and sinuses are not tender to palpation, is unlikely acute sinusitis. Urinalysis with UTI and patient complaining of intermittent frequency. We'll treat with ciprofloxacin. Patient has an appointment with her primary doctor on Wednesday for follow-up. Blood pressure currently is 154/82, I encouraged patient to take her blood pressure medications as prescribed. I discussed the physical exam findings, ancillary test results and final diagnoses with the patient. I answered all of the patient's questions. The patient was satisfied with the care received and felt comfortable with the discharge plan and treatment plan. The patient will call their primary care physician within 24 hours to arrange follow-up and will return to the Emergency Department with any new, persistent or worsening symptoms. <Lam Link - Last Filed: 08/01/17 00:30>
[2017-07-31] MEDS ORDERED: LISINOPRIL 20 MG TABLET (FP) PO ONE (21:37)
[2017-07-31] MEDS ORDERED: amLODIPine BESYLATE 5 MG TABLET (FP) PO ONE (21:45)
[2017-07-31] MEDS ORDERED: LISINOPRIL 20 MG TABLET (FP) ONE (22:08)
[2017-07-31] MEDS ORDERED: ONDANSETRON *ODT* 4 MG TABLET ONE (22:09)
[2017-07-31] MEDS ORDERED: ONDANSETRON 8 MG TABLET (FP) PO ONE (22:11)
[2017-07-31] MEDS ORDERED: GABAPENTIN 300 MG CAPSULE (FP) PO ONE (22:22)
[2017-07-31 22:41] LABS: BASO % 0.6 % (0-2.0); EOS % 7.1 % (0-4.5); HEMATOCRIT 40.4 % (32.4-45.2); LYMPH % 34.1 % (8-40); MCH 26.3 pg (25.7-33.7); MCHC 32.3 g/dl (32.0-36.0); MEAN CELL VOLUME 81.4 fl (80-96); NEUT % 51.2 % (42.8-82.8); PLATELET COUNT 217 K/MM3 (134-434); RBC 4.96 M/mm3 (3.60-5.2); RDW 15.7 % (11.6-15.6); WHITE BLOOD COUNT 9.1 K/mm3 (4.0-10.0)
[2017-07-31 23:36] LABS: URINE APPEARANCE SLCLOUDY; URINE BILIRUBIN NEGATIVE (NEGATIVE); URINE BLOOD 1+ (NEGATIVE); URINE COLOR YELLOW; URINE GLUCOSE (UA) NEGATIVE (NEGATIVE); URINE KETONE NEGATIVE (NEGATIVE); URINE NITRITE POSITIVE (NEGATIVE); URINE UROBILINOGEN NEGATIVE mg/dL (0.2-1.0)
[2017-07-31 23:37] LABS: URINE LEUK ESTERASE 3+ (NEGATIVE); URINE PROTEIN 1+ (NEGATIVE)
[2017-07-31 23:41] LABS: EPI CELLS RARE /HPF (FEW); URINE MUCUS FEW
[2017-07-31] MEDS ORDERED: LEVOFLOXACIN 500 MG TABLET (FP) PO ONE (23:55)
[2017-08-01] LABS: ALBUMIN 3.6 g/dl (3.4-5.0); ANION GAP 9 (8-16); BILIRUBIN,TOTAL 0.2 mg/dL (0.2-1.0); BLOOD UREA NITROGEN 13 mg/dL (7-18); CALCIUM 8.6 mg/dL (8.5-10.1); CHLORIDE 107 mmol/L (98-107); CO2 26 mmol/L (21-32); CREATININE 0.8 mg/dL (0.55-1.02); GLUCOSE,RANDOM 94 mg/dL (74-106); POTASSIUM 3.5 mmol/L (3.5-5.1); SGOT/AST 20 U/L (15-37); SGPT/ALT 22 U/L (12-78); SODIUM 142 mmol/L (136-145); TOT PROT 7.9 g/dl (6.4-8.2)
[2017-08-01 00:03] LABS: ALK PHOS 121 U/L (45-117)
[2017-08-01] MEDS ORDERED: LEVOFLOXACIN 500 MG TABLET (FP) ONE (00:29)
[2017-08-01 00:34] VITALS: BP 154/83
--- NOTE | 2017-08-01 12:26 | EKG ---
Test Reason : Blood Pressure : / mmHG Vent. Rate : 080 BPM Atrial Rate : 080 BPM P-R Int : 146 ms QRS Dur : 090 ms QT Int : 392 ms P-R-T Axes : 039 020 049 degrees QTc Int : 452 ms NORMAL SINUS RHYTHM POSSIBLE LEFT ATRIAL ENLARGEMENT BORDERLINE ECG WHEN COMPARED WITH ECG OF 14-JUN-2017 06:49, T WAVE AMPLITUDE HAS DECREASED IN INFERIOR LEADS QT HAS LENGTHENED CLINICAL CORRELATION IS RECOMMENDED BASELINE ARTIFACT Confirmed by STACIA BATRES, CAMRON ([id number]) on 08/01/2017 12:26:03 PM Referred By: Confirmed By:CAMRON PALOMO MD
--- NOTE | 2017-08-03 07:17 | PDOC ---
Patient Follow-up (Call Back) - Post ED Follow - Up Condition at time of discharge: Stable Disposition at time of original discharge: HOME Reason for Call Back: Abnwl. Microbiology (urine culture preliminary shows non- lactose fermenting GNB. Patient placed on Cipro in the ED. Will await final report.)
== END 2017-08-01 00:34 | disposition home or self-care (01) ==
LOC: JER 18:09
DX: I10 Essential (primary) hypertension (principal); N30.01 Acute cystitis with hematuria; J32.9 Chronic sinusitis, unspecified; Z91.14 Patient's other noncompliance with medication regimen; J45.909 Unspecified asthma, uncomplicated; E11.9 Type 2 diabetes mellitus without complications; E78.00 Pure hypercholesterolemia, unspecified; E03.9 Hypothyroidism, unspecified; F41.9 Anxiety disorder, unspecified; F32.9 Major depressive disorder, single episode, unspecified; F31.9 Bipolar disorder, unspecified; Z91.5 Personal history of self-harm
CPT/HCPCS: 36415; 70450-TC; 80053; 81003; 81015; 82550; 84484; 85025; 87086; 87186; 93005; 93010; 99282-25

== ENCOUNTER 2018-01-01 12:38 | Emergency (ER) | payer OTHER ==
[2018-01-01 12:45] VITALS: BP 162/92; PULSE 76; TEMP 98.3; BMI 34.3
[2018-01-01] MEDS ORDERED: KETOROLAC TROMETHAMINE 30 MG/1 ML VIAL IM ONE (13:04)
--- NOTE | 2018-01-01 13:13 | PDOC ---
History of Present Illness - General Chief Complaint: Pain Stated Complaint: RT HAND PAIN Time Seen by Provider: 01/01/18 13:02 History Source: Patient Exam Limitations: No Limitations - History of Present Illness Initial Comments: 01/01/18 13:05 52 yr female history of depression, anxiety, RLS , chronic hand pain for 3 weeks. Pt followed by told she has restless leg syndrome in her hands. pt taking gabapentin, miriplax, wellbutrin, zoloft with no relief. Past History - Past Medical History Allergies/Adverse Reactions: Allergies Allergy/AdvReac Type Severity Reaction Status Date / Time iodine [Iodine] Allergy Rash Verified 01/01/18 12:45 CT iv contrats dye Allergy Severe Rash Uncoded 01/01/18 12:45 Home Medications: Ambulatory Orders Albuterol Sulfate Inhaler - [Ventolin HFA Inhaler -] 2 inh IH ASDIR PRN Aripiprazole [Abilify -] 5 mg PO AM 11/16/14 Levothyroxine [Synthroid -] 88 mcg PO DAILY 11/16/14 Atorvastatin Ca [Lipitor] 40 mg PO HS 10/13/15 Amlodipine Besylate/Benazepril [Lotrel 5-40 mg Capsule] 1 each PO DAILY Aspirin [Aspirin EC] 81 mg PO DAILY 09/28/17 Carvedilol [Coreg -] 3.125 mg PO BID 09/28/17 Diphenhydramine HCl [Benadryl -] 25 mg PO BID PRN 09/28/17 Escitalopram Oxalate [Lexapro -] 10 mg PO DAILY 09/28/17 Gabapentin Enacarbil [Horizant] 600 mg PO BID 09/28/17 Liraglutide [Victoza -] 1.8 mg SQ DAILY@0700 09/28/17 Meloxicam [Mobic] 15 mg PO BID 09/28/17 Metoprolol Succinate [Toprol Xl] 50 mg PO DAILY 09/28/17 Pantoprazole Sodium [Protonix] 40 mg PO BID 09/28/17 Diazepam [Valium] 5 mg PO Q8H PRN #6 tablet MDD 15mg 01/01/18 Naproxen [Naprosyn -] 500 mg PO BID #14 tablet 01/01/18 Anemia: No Asthma: Yes Cancer: No Cardiac Disorders: Yes (CAD) CVA: No COPD: No CHF: No Dementia: No Diabetes: Yes GI Disorders: Yes (GERD) Disorders: Yes (dropped bladder) HTN: Yes Hypercholesterolemia: Yes Liver Disease: No Psychiatric Problems: Yes (anxiety, depression, bipolar, past suicide attempts) Seizures: No Thyroid Disease: Yes (hypothryoidism ) Other medical history: restless hand syndrome - Surgical History Abdominal Surgery: Yes (lap band removed,S/P Gastric Sleeve 11/2011,2013. tummy tuck. Uterine prolap) Appendectomy: No Cardiac Surgery: No Cholecystectomy: Yes Gastric Stapling: Yes (gastric bip[ass 02/13/17) GI Surgery: Yes (cystoscopy procedure) Lung Surgery: No Neurologic Surgery: Yes (left elbow nerve release) Orthopedic Surgery: Yes (AGNIESZKA KNEE REPLACEMENT) - Family Disease History Family Disease History: Heart Disease: Father - Immunization History Td Vaccination: Yes Immunization Up to Date: Yes - Suicide/Smoking/Psychosocial Hx Smoking Status: Yes Smoking History: Never smoked Years of Tobacco Use: 5 Have you smoked in the past 12 months: No Number of Cigarettes Smoked Daily: 10 If you are a former smoker, when did you quit?: April 2011 Cigars Per Day: 0 Information on smoking cessation initiated: No 'Breaking Loose' booklet given: 01/21/15 Hx Alcohol Use: No Drug/Substance Use Hx: No Substance Use Type: None Hx Substance Use Treatment: No *Physical Exam - Vital Signs Last Vital Signs Temp Pulse Resp BP Pulse Ox 98.3 F 76 18 162/92 99 01/01/18 12:42 01/01/18 12:42 01/01/18 12:42 01/01/18 12:42 01/01/18 12:42 - Physical Exam General Appearance: Yes: Nourished, Appropriately Dressed HEENT: positive: EOMI, JUDAH Musculoskeletal: positive: Normal Inspection Extremity: positive: Normal Capillary Refill, Normal Inspection, Normal Range of Motion, Other (bilateral hands no swelling no deformity nv intact , apin with movement of the fingers.) Integumentary: positive: Normal Color, Dry, Warm Neurologic: positive: Fully Oriented, Alert, Normal Mood/Affect, Normal Response , Motor Strength 5/5 Medical Decision Making - Medical Decision Making 01/01/18 13:24 cc: finger pain chronic will give toradol now pt states the meds she is taking are not helping will prescribe valium for cramping at night strict follow up with her neurologist and her PCP next week pt agrees with plan of care *DC/Admit/Observation/Transfer Diagnosis at time of Disposition: Bilateral hand pain - Discharge Dispostion Disposition: HOME Condition at time of disposition: Good - Prescriptions Prescriptions: Diazepam [Valium] 5 mg PO Q8H PRN #6 tablet MDD 15mg PRN Reason: Muscle Spasms Naproxen [Naprosyn -] 500 mg PO BID #14 tablet - Referrals Referrals: William Sutton [Primary Care Provider] - - Patient Instructions Additional Instructions: follow with and your primary care doctor next week take naprosyn as directed for pain take valium as directed fro any muscle spasm or cramping, this may also help with the pain . - Post Discharge Activity
[2018-01-01] MEDS ORDERED: KETOROLAC TROMETHAMINE 30 MG/1 ML VIAL ONE (13:21)
== END 2018-01-01 13:35 | disposition home or self-care (01) ==
LOC: JERFT 12:38
PROC: 3E0233Z Introduction of Anti-inflammatory into Muscle, Percutaneous Approach (ICD-10-PCS; principal; 2018-01-01)
DX: M79.642 Pain in left hand (principal); M79.641 Pain in right hand; G25.81 Restless legs syndrome; I10 Essential (primary) hypertension; E78.00 Pure hypercholesterolemia, unspecified; E03.9 Hypothyroidism, unspecified; F32.9 Major depressive disorder, single episode, unspecified; F41.9 Anxiety disorder, unspecified; F31.9 Bipolar disorder, unspecified; Z91.5 Personal history of self-harm; Z96.651 Presence of right artificial knee joint; Z96.652 Presence of left artificial knee joint; Z98.84 Bariatric surgery status
CPT/HCPCS: 96372; 99281-25

== ENCOUNTER 2018-01-16 16:45 | Emergency (ER) | payer OTHER ==
[2018-01-16 17:00] VITALS: TEMP 98; BMI 36.0
--- NOTE | 2018-01-16 17:43 | PDOC ---
Attending Attestation - Resident Resident Name: Salud Nicole - ED Attending Attestation I have performed the following: I have examined & evaluated the patient, The case was reviewed & discussed with the resident, I agree w/resident's findings & plan, Exceptions are as noted - HPI HPI: 01/16/18 17:41 52y F hxdm, htm, anxiety, was recent dx of lupus presents with aches in the hands and a facial/arm rash. Endorses some nauseas and generally weak the past few days, chronic diarrhea, feeling lightheaded, palptiations. denies any fever/ chills, cough, cp, abd pain. on exam pt in no distress abd soft nontender, cardiac exam rrr, no mrg pulm cta bl +malar rash will ck basic l abs to r/o anemia, metabolic derangement
[2018-01-16] MEDS ORDERED: ONDANSETRON 4 MG/2 ML VIAL IVPB ONE (18:03)
--- NOTE | 2018-01-16 18:08 | PDOC ---
History of Present Illness - General Chief Complaint: Pain, Acute Stated Complaint: PAIN Time Seen by Provider: 01/16/18 17:23 - History of Present Illness Initial Comments: 01/16/18 18:02 52 year old with recent diagnosis of lupus who presents with ongoing aching of hands and arms for the past month and nausea for the past week with one episode of spit up this AM. She complains of dry mouth, sour taste in her mouth and rash on her R elbow and L rojas. She denies chest pain, headache, abdominal pain , but admits to chronic diarrhea and lightheadedness. She has no other complaints at bedside. PMHX: DM, HTN, asthma, depression, anxiety Meds: insulin, mirapax Allergies: CT dye, percocet, toradol Tob: none Etoh: none Rec drugs: none Past History - Past Medical History Allergies/Adverse Reactions: Allergies Allergy/AdvReac Type Severity Reaction Status Date / Time acetaminophen [From Percocet] Allergy Verified 01/16/18 17:38 iodine [Iodine] Allergy Rash Verified 01/16/18 17:01 ketorolac [From Toradol] Allergy Verified 01/16/18 17:01 oxycodone [From Percocet] Allergy Verified 01/16/18 17:38 CT iv contrats dye Allergy Severe Rash Uncoded 01/16/18 17:01 Home Medications: Ambulatory Orders Albuterol Sulfate Inhaler - [Ventolin HFA Inhaler -] 2 inh IH ASDIR PRN Aripiprazole [Abilify -] 5 mg PO AM 11/16/14 Levothyroxine [Synthroid -] 88 mcg PO DAILY 11/16/14 Atorvastatin Ca [Lipitor] 40 mg PO HS 10/13/15 Amlodipine Besylate/Benazepril [Lotrel 5-40 mg Capsule] 1 each PO DAILY Aspirin [Aspirin EC] 81 mg PO DAILY 09/28/17 Carvedilol [Coreg -] 3.125 mg PO BID 09/28/17 Diphenhydramine HCl [Benadryl -] 25 mg PO BID PRN 09/28/17 Escitalopram Oxalate [Lexapro -] 10 mg PO DAILY 09/28/17 Gabapentin Enacarbil [Horizant] 600 mg PO BID 09/28/17 Liraglutide [Victoza -] 1.8 mg SQ DAILY@00 09/28/17 Meloxicam [Mobic] 15 mg PO BID 09/28/17 Metoprolol Succinate [Toprol Xl] 50 mg PO DAILY 09/28/17 Pantoprazole Sodium [Protonix] 40 mg PO BID 09/28/17 Diazepam [Valium] 5 mg PO Q8H PRN #6 tablet MDD 15mg 01/01/18 Naproxen [Naprosyn -] 500 mg PO BID #14 tablet 01/01/18 Anemia: No Asthma: Yes Cancer: No Cardiac Disorders: Yes (CAD) CVA: No COPD: No CHF: No Dementia: No Diabetes: Yes GI Disorders: Yes (GERD) Disorders: Yes (dropped bladder) HTN: Yes Hypercholesterolemia: Yes Liver Disease: No Psychiatric Problems: Yes (anxiety, depression, bipolar, past suicide attempts) Seizures: No Thyroid Disease: Yes (hypothryoidism ) Other medical history: Lupus - Surgical History Abdominal Surgery: Yes (lap band removed,S/P Gastric Sleeve 11/2011,2013. tummy tuck. Uterine prolap) Appendectomy: No Cardiac Surgery: No Cholecystectomy: Yes Gastric Stapling: Yes (gastric bip[ass 02/13/17) GI Surgery: Yes (cystoscopy procedure) Lung Surgery: No Neurologic Surgery: Yes (left elbow nerve release) Orthopedic Surgery: Yes (AGNIESZKA KNEE REPLACEMENT) - Family Disease History Family Disease History: Heart Disease: Father - Immunization History Td Vaccination: Yes Immunization Up to Date: Yes - Suicide/Smoking/Psychosocial Hx Smoking Status: Yes Smoking History: Never smoked Years of Tobacco Use: 5 Have you smoked in the past 12 months: No Number of Cigarettes Smoked Daily: 10 If you are a former smoker, when did you quit?: April 2011 Cigars Per Day: 0 'Breaking Loose' booklet given: 01/21/15 Hx Alcohol Use: No Drug/Substance Use Hx: No Substance Use Type: None Hx Substance Use Treatment: No Review of Systems - Review of Systems Able to Perform ROS?: Yes Is the patient limited Macedonian proficient: No Constitutional: No: Chills, Diaphoresis, Fever HEENTM: No: Recent change in vision, Tinnitus Respiratory: No: Cough, Shortness of Breath Cardiac (ROS): No: Chest Pain, Palpitations, Chest Tightness ABD/GI: Yes: Diarrhea, Nausea. No: Constipated, Vomiting : No: Burning, Dysuria, Hematuria Musculoskeletal: Yes: Muscle Weakness Neurological: No: Headache, Numbness, Paresthesia, Tingling *Physical Exam - Vital Signs Last Vital Signs Temp Pulse Resp BP Pulse Ox 98.0 F 78 16 151/90 100 01/16/18 16:58 01/16/18 16:58 01/16/18 16:58 01/16/18 16:58 01/16/18 16:58 - Physical Exam Comments: 01/16/18 18:08 GENERAL: Awake, alert, and fully oriented, in no acute distress HEAD: No signs of trauma, normocephalic, atraumatic EYES: EOMI, sclera anicteric, conjunctiva clear ENT: oropharynx clear without exudates. Moist mucosa NECK: Normal ROM LUNGS: No distress, speaks full sentences, clear to auscultation bilaterally HEART: Regular rate and rhythm, normal S1 and S2, no murmurs, rubs or gallops, peripheral pulses normal and equal bilaterally. ABDOMEN: Soft, nontender, normoactive bowel sounds. No guarding, no rebound. No masses EXTREMITIES : Normal inspection, Normal range of motion, no edema. No clubbing or cyanosis. + slight erythema on knuckles bilaterally NEUROLOGICAL: Normal speech, normal gait, no focal sensorimotor deficits SKIN: Warm, Dry, normal turgor, no rashes or lesions, + dry skin on R rojas, + R elbow excoriations ED Treatment Course - LABORATORY CBC & Chemistry Diagram: 01/16/18 19:30 01/16/18 18:02 Medical Decision Making - Medical Decision Making 01/16/18 18:10 52 year old with recent diagnosis of lupus who presents with ongoing aching of hands and arms for the past month and nausea for the past week with one episode of spit up this AM. Patient likely has aching secondary to lupus as she has not followed up with PCP for lupus treatment and regimen. We will treat symptomatically and assess for possible causes of weakness such as anemia and dehydration. - CBC, CMP 01/16/18 18:13 Patient given Tylenol for relief, she denies any allergy. 01/16/18 19:07 WBC: 11.6 / platelets: 55 Repeat CBC showed platelets of 52. The patient is clinically stable, no acute distress, has no signs of bleeds and has stable vitals. She was counseled regarding her changed lab values and given referral for hematology and oncology to further evaluate the etiology for her decreased platelets. She was advised to have close follow up with her PCP to manage her lupus and her lab value changes. *DC/Admit/Observation/Transfer Diagnosis at time of Disposition: Lupus (systemic lupus erythematosus) - Discharge Dispostion Disposition: HOME Condition at time of disposition: Guarded Decision to Admit order: No - Referrals Referrals: Quincy Laguna MD [Staff Physician] - - Patient Instructions Printed Discharge Instructions: DI for Systemic Lupus Erythematosus Additional Instructions: You were seen in the ED for complaints of aching in the hands. You were treated for symptomatic relief and labs were drawn to evaluate blood levels. You were found to have low platelets and will be given a referral to a apartment maintenance manager today and advised to f.u with hematology and your PCP within the next week. Return to the ED immediately if symptoms worsen, fever develops, nausea. vomiting, loss of consciousness. - Post Discharge Activity
[2018-01-16] MEDS ORDERED: ACETAMINOPHEN 1000 MG/100 ML VIAL (NON FORMULARY) IVPB ONE (18:12)
[2018-01-16] MEDS ORDERED: SODIUM CHLORIDE 1,000 ML IV SCH (18:15)
[2018-01-16 18:22] LABS: BASO % 0.8 % (0-2.0); EOS % 4.7 % (0-4.5); HEMATOCRIT 38.9 % (32.4-45.2); HEMOGLOBIN 12.7 GM/dL (10.7-15.3); LYMPH % 22.6 % (8-40); MCH 26.2 pg (25.7-33.7); MCHC 32.8 g/dl (32.0-36.0); MEAN CELL VOLUME 79.8 fl (80-96); MEAN PLT VOLUME 11.4 fl (7.5-11.1); MONO % 5.5 % (3.8-10.2); NEUT % 66.4 % (42.8-82.8); PLATELET COUNT 55 K/MM3 (134-434); RBC 4.87 M/mm3 (3.60-5.2); RDW 15.9 % (11.6-15.6); WHITE BLOOD COUNT 11.4 K/mm3 (4.0-10.0)
[2018-01-16] MEDS ORDERED: ACETAMINOPHEN INJECTION 100 ML IVPB ONE (18:30)
[2018-01-16 18:53] LABS: ALBUMIN 3.9 g/dl (3.4-5.0); ALK PHOS 116 U/L (45-117); ANION GAP 7 (8-16); BILIRUBIN,TOTAL 0.3 mg/dL (0.2-1.0); BLOOD UREA NITROGEN 16 mg/dL (7-18); CALCIUM 8.9 mg/dL (8.5-10.1); CHLORIDE 109 mmol/L (98-107); CO2 29 mmol/L (21-32); CREATININE 0.6 mg/dL (0.55-1.02); GLUCOSE,RANDOM 83 mg/dL (74-106); POTASSIUM 3.8 mmol/L (3.5-5.1); SGOT/AST 18 U/L (15-37); SGPT/ALT 18 U/L (12-78); SODIUM 145 mmol/L (136-145); TOT PROT 7.8 g/dl (6.4-8.2)
--- NOTE | 2018-01-16 19:24 | PDOC ---
*Physical Exam - Vital Signs Last Vital Signs Temp Pulse Resp BP Pulse Ox 98.0 F 78 16 151/90 100 01/16/18 16:58 01/16/18 16:58 01/16/18 16:58 01/16/18 16:58 01/16/18 16:58 ED Treatment Course - LABORATORY CBC & Chemistry Diagram: 01/16/18 18:02 01/16/18 18:02 - ADDITIONAL ORDERS Additional order review: Laboratory Results 01/16/18 18:02 Sodium 145 Potassium 3.8 Chloride 109 H Carbon Dioxide 29 Anion Gap 7 L BUN 16 Creatinine 0.6 Creat Clearance w eGFR > 60 Random Glucose 83 Calcium 8.9 Total Bilirubin 0.3 AST 18 ALT 18 Alkaline Phosphatase 116 Total Protein 7.8 Albumin 3.9 01/16/18 18:02 RBC 4.87 MCV 79.8 L MCHC 32.8 RDW 15.9 H MPV 11.4 H D Neutrophils % 66.4 D Lymphocytes % 22.6 D Monocytes % 5.5 Eosinophils % 4.7 H Basophils % 0.8 - Medications Given in the ED: ED Medications Discontinued Medications Generic Name Dose Route Start Last Admin Trade Name Eduardoq PRN Reason Stop Dose Admin Acetaminophen 1,000 mg 01/16/18 18:12 01/16/18 18:28 Ofirmev Injection - IVPB 01/16/18 18:13 1,000 mg ONCE ONE Administration Ondansetron HCl 8 mg 01/16/18 18:03 01/16/18 18:07 Zofran Injection IVPB 01/16/18 18:04 8 mg ONCE ONE Administration *DC/Admit/Observation/Transfer Diagnosis at time of Disposition: Lupus (systemic lupus erythematosus) - Discharge Dispostion Disposition: HOME Condition at time of disposition: Guarded - Referrals - Patient Instructions - Post Discharge Activity
[2018-01-16 19:26] VITALS: BP 146/85; PULSE 60
[2018-01-16 19:43] LABS: BASO % 0.6 % (0-2.0); EOS % 4.8 % (0-4.5); HEMATOCRIT 37.1 % (32.4-45.2); HEMOGLOBIN 12.2 GM/dL (10.7-15.3); LYMPH % 25.6 % (8-40); MCH 26.2 pg (25.7-33.7); MCHC 32.8 g/dl (32.0-36.0); MONO % 5.9 % (3.8-10.2); NEUT % 63.1 % (42.8-82.8); RBC 4.64 M/mm3 (3.60-5.2); RDW 15.9 % (11.6-15.6); WHITE BLOOD COUNT 10.4 K/mm3 (4.0-10.0)
[2018-01-16 20:18] LABS: MEAN PLT VOLUME 11.5 fl (7.5-11.1); PLATELET COUNT 52 K/MM3 (134-434); PLATELET ESTIMATE MOD DECREASED
[2018-01-16 20:25] LABS: PLATELET ESTIMATE MOD DECREASED
== END 2018-01-16 21:12 | disposition home or self-care (01) ==
LOC: JER 16:45
PROC: 3E033GC Introduction of Other Therapeutic Substance into Peripheral Vein, Percutaneous Approach (ICD-10-PCS; principal; 2018-01-16)
PROC: 3E033NZ Introduction of Analgesics, Hypnotics, Sedatives into Peripheral Vein, Percutaneous Approach (ICD-10-PCS; 2018-01-16)
PROC: 3E0337Z Introduction of Electrolytic and Water Balance Substance into Peripheral Vein, Percutaneous Approach (ICD-10-PCS; 2018-01-16)
DX: M32.9 Systemic lupus erythematosus, unspecified (principal); E11.9 Type 2 diabetes mellitus without complications; Z79.4 Long term (current) use of insulin; F41.9 Anxiety disorder, unspecified; F32.9 Major depressive disorder, single episode, unspecified; E03.9 Hypothyroidism, unspecified; F31.9 Bipolar disorder, unspecified; Z91.5 Personal history of self-harm; Z96.653 Presence of artificial knee joint, bilateral; Z98.84 Bariatric surgery status
CPT/HCPCS: 36415; 80053; 85025; 99284-25; J0131; J7030

== ENCOUNTER 2020-11-21 15:26 | Emergency (ER) | payer OTHER ==
[2020-11-21 15:44] VITALS: TEMP 97.7; BMI 35.3
[2020-11-21] MEDS ORDERED: TAMSULOSIN HCL 0.4 MG CAP PO ONE (16:27)
[2020-11-21] MEDS ORDERED: TAMSULOSIN HCL 0.4 MG CAP ONE (17:15)
[2020-11-21 17:29] LABS: BASO % 0.3 % (0-2.0); EOS % 1.8 % (0-4.5); HEMATOCRIT 36.5 % (32.4-45.2); HEMOGLOBIN 12.1 GM/dL (10.7-15.3); LYMPH % 22.5 % (8-40); MCH 27.6 pg (25.7-33.7); MEAN CELL VOLUME 83.7 fl (80-96); MEAN PLT VOLUME 9.8 fl (7.5-11.1); MONO % 6.7 % (3.8-10.2); NEUT % 68.7 % (42.8-82.8); PLATELET COUNT 140 K/MM3 (134-434); RBC 4.36 M/mm3 (3.60-5.2); WHITE BLOOD COUNT 7.7 K/mm3 (4.0-10.0)
[2020-11-21 17:33] LABS: EPI CELLS 31 /uL (0-25.1); HYALINE CASTS 2 /uL (0-3.1); URINE APPEARANCE TURBID; URINE BACTERIA 180 /uL (0-1359); URINE BILIRUBIN NEGATIVE (NEGATIVE); URINE COLOR YELLOW; URINE GLUCOSE (UA) NEGATIVE (NEGATIVE); URINE KETONE TRACE (NEGATIVE); URINE LEUK ESTERASE 3+ (NEGATIVE); URINE NITRITE NEGATIVE (NEGATIVE); URINE PROTEIN TRACE (NEGATIVE); URINE UROBILINOGEN 0.2 mg/dL (0.2-1.0); URINE WBC 2117 /uL (0-25.8)
[2020-11-21] MEDS ORDERED: PHENAZOPYRIDINE HCL 100 MG TABLET (FP) PO ONE (17:40)
[2020-11-21 17:50] LABS: BLOOD UREA NITROGEN 18.6 mg/dL (7-18); CALCIUM 8.8 mg/dL (8.5-10.1)
[2020-11-21] MEDS ORDERED: PHENAZOPYRIDINE HCL 100 MG TABLET (FP) ONE (17:50)
[2020-11-21 17:51] LABS: ALBUMIN 3.4 g/dl (3.4-5.0)
[2020-11-21 17:55] LABS: BILIRUBIN,TOTAL 0.3 mg/dL (0.2-1); TOT PROT 7.3 g/dl (6.4-8.2)
[2020-11-21] MEDS ORDERED: MEROPENEM 1 GM in DEXTROSE 5%-WATER 100 ML IVPB ONE (18:02)
[2020-11-21 18:18] LABS: URINE RBC 27.2 /uL (0-23.9)
[2020-11-21] MEDS ORDERED: MEROPENEM 1 GM VIAL (RESTRICTED TO ID) IVPB ONE (19:33)
[2020-11-21 21:57] VITALS: BP 114/66; PULSE 65
== END 2020-11-21 21:58 | disposition home or self-care (01) ==
LOC: JER 15:26
DX: N30.00 Acute cystitis without hematuria (principal); R10.30 Lower abdominal pain, unspecified; E11.9 Type 2 diabetes mellitus without complications
CPT/HCPCS: 36415; 74176-TC; 80053; 81003; 85025; 87086; 99284-25; C9803; U0003; U0005

== ENCOUNTER 2021-01-01 18:30 | Observation (INO) | payer OTHER ==
[2021-01-01 22:16] LABS: HEMOGLOBIN 12.2 GM/dL (10.7-15.3); LYMPH % 37.3 % (8-40); MCH 27.7 pg (25.7-33.7); MCHC 32.1 g/dl (32.0-36.0); MEAN CELL VOLUME 86.5 fl (80-96); MEAN PLT VOLUME 9.6 fl (7.5-11.1); NEUT % 49.7 % (42.8-82.8); PLATELET COUNT 194 10^3/uL (134-434); RBC 4.39 M/mm3 (3.60-5.2); RDW 18.3 % (11.6-15.6); WHITE BLOOD COUNT 9.1 K/mm3 (4.0-10.0)
[2021-01-01 22:26] LABS: COCAINE, UR NEGATIVE (NEGATIVE); METHADONE, UR NEGATIVE (NEGATIVE); OPIATES, URI NEGATIVE (NEGATIVE); PHENCYCLIDINE,URINE NEGATIVE (NEGATIVE); URINE BENZODIAZEPINES NEGATIVE (NEGATIVE)
[2021-01-01 22:27] LABS: URINE AMPHETAMINES POSITIVE (NEGATIVE); URINE BARBITURATES NEGATIVE (NEGATIVE)
[2021-01-01 22:35] LABS: CHLORIDE 110 mmol/L (98-107); SODIUM 142 mmol/L (136-145)
[2021-01-01 22:39] LABS: ALBUMIN 3.6 g/dl (3.4-5.0); ANION GAP 7 MMOL/L (8-16); BLOOD UREA NITROGEN 24.6 mg/dL (7-18); CALCIUM 8.5 mg/dL (8.5-10.1); CO2 26 mmol/L (21-32); GLUCOSE,RANDOM 70 mg/dL (74-106)
[2021-01-01 22:40] LABS: MAGNESIUM 2.7 mg/dL (1.8-2.4)
[2021-01-01 22:42] LABS: CREATININE 0.8 mg/dL (0.55-1.3); PHOSPHOROUS 4.4 mg/dL (2.5-4.9); SGPT/ALT 22 U/L (13-61)
[2021-01-01 22:43] LABS: SGOT/AST 32 U/L (15-37)
[2021-01-01 22:44] LABS: BILIRUBIN,TOTAL 0.6 mg/dL (0.2-1); TOT PROT 7.5 g/dl (6.4-8.2)
[2021-01-01 22:45] LABS: ALK PHOS 105 U/L (45-117)
[2021-01-01 22:55] LABS: EPI CELLS 33 /uL (0-25.1); HYALINE CASTS 32 /uL (0-3.1); URINE APPEARANCE CLOUDY; URINE BACTERIA 519 /uL (0-1359); URINE BILIRUBIN NEGATIVE (NEGATIVE); URINE COLOR YELLOW; URINE GLUCOSE (UA) NEGATIVE (NEGATIVE); URINE KETONE TRACE (NEGATIVE); URINE LEUK ESTERASE 2+ (NEGATIVE); URINE NITRITE NEGATIVE (NEGATIVE); URINE PROTEIN TRACE (NEGATIVE); URINE WBC 382 /uL (0-25.8)
[2021-01-02 00:11] LABS: URINE RBC 80.4 /uL (0-23.9)
[2021-01-02 00:12] LABS: URINE CRYSTALS FEW /hpf
[2021-01-02] MEDS ORDERED: INSULIN SLIDING SCALE (NOVOLOG) 1 VIAL SQ SCH (07:00)
[2021-01-02 08:42] VITALS: BMI 36.0
[2021-01-02 09:00] LABS: BASO % 0.5 % (0-2.0); HEMATOCRIT 35.7 % (32.4-45.2); HEMOGLOBIN 11.8 GM/dL (10.7-15.3); LYMPH % 23.7 % (8-40); MCH 28.2 pg (25.7-33.7); MCHC 33.2 g/dl (32.0-36.0); MEAN PLT VOLUME 9.2 fl (7.5-11.1); MONO % 7.6 % (3.8-10.2); NEUT % 65.2 % (42.8-82.8); PLATELET COUNT 146 10^3/uL (134-434); RDW 17.9 % (11.6-15.6); WHITE BLOOD COUNT 7.8 K/mm3 (4.0-10.0)
[2021-01-02] MEDS: INSULIN SLIDING SCALE (NOVOLOG) 1 VIAL SQ SCH ×3 (09:05→17:51)
[2021-01-02 09:30] LABS: ALBUMIN 3.5 g/dl (3.4-5.0)
[2021-01-02 09:31] LABS: BLOOD UREA NITROGEN 19.6 mg/dL (7-18); CALCIUM 8.7 mg/dL (8.5-10.1)
[2021-01-02 09:34] LABS: CREATININE 0.7 mg/dL (0.55-1.3); MAGNESIUM 2.7 mg/dL (1.8-2.4); PHOSPHOROUS 4.5 mg/dL (2.5-4.9)
[2021-01-02 09:35] LABS: BILIRUBIN,TOTAL 0.4 mg/dL (0.2-1); TOT PROT 7.1 g/dl (6.4-8.2)
[2021-01-02] MEDS ORDERED: [UNRECOGNIZED DRUG - OTHER] PO SCH (10:00)
[2021-01-02] MEDS ORDERED: FOLIC ACID PO SCH (10:00)
[2021-01-02] MEDS ORDERED: GABAPENTIN 400 MG CAPSULE PO SCH ×3 (10:00)
[2021-01-02] MEDS ORDERED: LURASIDONE HCL 40 MG TABLET PO SCH (10:00)
[2021-01-02] MEDS ORDERED: MULTIVIT MIN PO SCH (10:00)
[2021-01-02] MEDS ORDERED: IRON PO SCH (10:00)
[2021-01-02] MEDS: amLODIPine BESYLATE 10 MG TABLET (FP) PO SCH (12:28)
[2021-01-02] MEDS: lamoTRIgine 100 MG TABLET PO SCH (12:28)
[2021-01-02] MEDS: LOSARTAN POTASSIUM 50 MG TABLET PO SCH (12:28)
[2021-01-02] MEDS: CHOLECALCIFEROL (VIT D3) 1,000 UNIT (25 MCG) TABLET PO SCH (12:29)
[2021-01-02] MEDS: GABAPENTIN 300 MG CAPSULE PO SCH ×2 (12:29→21:41)
[2021-01-02] MEDS: ENOXAPARIN NA (PORCINE) 40 MG/0.4 ML DISP.SYRIN SQ SCH (12:29)
[2021-01-02] MEDS: PANTOPRAZOLE 40 MG TABLET PO SCH (12:29)
[2021-01-02] MEDS: clonazePAM 2 MG TABLET PO SCH (21:41)
[2021-01-02] MEDS ORDERED: ATORVASTATIN CA 20 MG TABLET (FP) PO SCH (22:00)
[2021-01-03] MEDS: clonazePAM 2 MG TABLET PO SCH (06:25)
[2021-01-03] MEDS: INSULIN SLIDING SCALE (NOVOLOG) 1 VIAL SQ SCH ×2 (06:27→11:34)
[2021-01-03 09:14] LABS: HEMATOCRIT 38.8 % (32.4-45.2); HEMOGLOBIN 12.3 GM/dL (10.7-15.3); MCH 27.6 pg (25.7-33.7); MCHC 31.8 g/dl (32.0-36.0); MEAN CELL VOLUME 86.8 fl (80-96); MEAN PLT VOLUME 9.7 fl (7.5-11.1); PLATELET COUNT 148 10^3/uL (134-434); RBC 4.46 M/mm3 (3.60-5.2); RDW 17.9 % (11.6-15.6); WHITE BLOOD COUNT 8.9 K/mm3 (4.0-10.0)
[2021-01-03 09:34] LABS: CALCIUM 8.7 mg/dL (8.5-10.1)
[2021-01-03 09:35] LABS: ALBUMIN 3.5 g/dl (3.4-5.0); BLOOD UREA NITROGEN 17.7 mg/dL (7-18); MAGNESIUM 2.5 mg/dL (1.8-2.4)
[2021-01-03 09:38] LABS: CREATININE 0.8 mg/dL (0.55-1.3); PHOSPHOROUS 3.8 mg/dL (2.5-4.9)
[2021-01-03 09:40] LABS: BILIRUBIN,TOTAL 0.4 mg/dL (0.2-1); TOT PROT 7.2 g/dl (6.4-8.2)
[2021-01-03] MEDS ORDERED: GABAPENTIN 400 MG CAPSULE PO SCH (10:00)
[2021-01-03] MEDS: LOSARTAN POTASSIUM 50 MG TABLET PO SCH (10:09)
[2021-01-03] MEDS: CHOLECALCIFEROL (VIT D3) 1,000 UNIT (25 MCG) TABLET PO SCH (10:10)
[2021-01-03] MEDS: lamoTRIgine 100 MG TABLET PO SCH (10:10)
[2021-01-03] MEDS: PANTOPRAZOLE 40 MG TABLET PO SCH (10:10)
[2021-01-03] MEDS: amLODIPine BESYLATE 10 MG TABLET (FP) PO SCH (10:10)
[2021-01-03 11:18] VITALS: BP 130/70; PULSE 82; TEMP 98.4
[2021-01-03] MEDS: ENOXAPARIN NA (PORCINE) 40 MG/0.4 ML DISP.SYRIN SQ SCH (11:34)
== END 2021-01-03 12:05 | disposition home or self-care (01) ==
LOC: JER 18:30 → INTOOBSV 01-02 01:10 → UNDOADMOB 01-02 01:10 → JERBED 01-02 01:10 → J8W 01-02 08:04 → JERBED 01-02 08:04 → J8W 01-02 13:43
PROVIDERS: ADMIT Internal Medicine; ATTEND Student in an Organized Health Care Education/Training Program
DX: G40.89 Other seizures (principal); M32.9 Systemic lupus erythematosus, unspecified; I10 Essential (primary) hypertension; E11.9 Type 2 diabetes mellitus without complications; E78.5 Hyperlipidemia, unspecified; E03.9 Hypothyroidism, unspecified; F41.8 Other specified anxiety disorders; F31.9 Bipolar disorder, unspecified; E66.8 Other obesity; Z68.36 Body mass index [BMI] 36.0-36.9, adult; Z88.8 Allergy status to other drugs, medicaments and biological substances; E83.41 Hypermagnesemia; K21.9 Gastro-esophageal reflux disease without esophagitis; N39.0 Urinary tract infection, site not specified
CPT/HCPCS: 36415; 70450-TC; 70551-TC; 80053; 80307; 81003; 82550; 82553; 82962; 83735; 84100; 84443; 84484; 85025; 85027; 87086; 87186; 93005; 93010; 95816; 99285-25; C9803; G0378; U0003; U0005

== ENCOUNTER 2021-03-17 12:08 | Emergency (ER) | payer OTHER ==
[2021-03-17 12:37] VITALS: BMI 35.4
[2021-03-17] MEDS ORDERED: levETIRAcetam 500 MG/5 ML INJECTION VIAL IVPB ONE ×2 (12:46→12:50)
[2021-03-17 13:18] LABS: BASO % 0.6 % (0-2.0); EOS % 3.1 % (0-4.5); HEMATOCRIT 38.3 % (32.4-45.2); LYMPH % 10.1 % (8-40); MCH 29.3 pg (25.7-33.7); MCHC 33.8 g/dl (32.0-36.0); MEAN CELL VOLUME 86.7 fl (80-96); MEAN PLT VOLUME 9.8 fl (7.5-11.1); NEUT % 81.2 % (42.8-82.8); PLATELET COUNT 181 10^3/uL (134-434); RBC 4.42 M/mm3 (3.60-5.2); RDW 15.4 % (11.6-15.6)
[2021-03-17 13:30] LABS: CHLORIDE 106 mmol/L (98-107); SODIUM 139 mmol/L (136-145)
[2021-03-17 13:32] LABS: CALCIUM 9.3 mg/dL (8.5-10.1)
[2021-03-17 13:33] LABS: ANION GAP 6 MMOL/L (8-16); BLOOD UREA NITROGEN 18.4 mg/dL (7-18); CO2 27 mmol/L (21-32); GLUCOSE,RANDOM 89 mg/dL (74-106); MAGNESIUM 2.6 mg/dL (1.8-2.4)
[2021-03-17 13:36] LABS: CREATININE 1.1 mg/dL (0.55-1.3); PHOSPHOROUS 3.8 mg/dL (2.5-4.9); SGOT/AST 18 U/L (15-37); SGPT/ALT 20 U/L (13-61)
[2021-03-17 13:37] LABS: BILIRUBIN,TOTAL 0.4 mg/dL (0.2-1); TOT PROT 7.8 g/dl (6.4-8.2)
[2021-03-17 13:38] LABS: ALK PHOS 125 U/L (45-117)
[2021-03-17 15:47] VITALS: BP 145/83; PULSE 70; TEMP 97.9
[2021-03-17 15:55] LABS: EPI CELLS 22 /uL (0-25.1); HYALINE CASTS 3 /uL (0-3.1); URINE APPEARANCE CLEAR; URINE BACTERIA 841 /uL (0-1359); URINE BILIRUBIN NEGATIVE (NEGATIVE); URINE COLOR YELLOW; URINE GLUCOSE (UA) NEGATIVE (NEGATIVE); URINE KETONE TRACE (NEGATIVE); URINE LEUK ESTERASE 2+ (NEGATIVE); URINE NITRITE NEGATIVE (NEGATIVE); URINE PROTEIN TRACE (NEGATIVE); URINE UROBILINOGEN 0.2 mg/dL (0.2-1.0); URINE WBC 491 /uL (0-25.8)
[2021-03-17 15:57] LABS: URINE RBC 73.3 /uL (0-23.9)
== END 2021-03-17 15:47 | disposition home or self-care (01) ==
LOC: JER 12:08
DX: G40.89 Other seizures (principal)
CPT/HCPCS: 36415; 70450-TC; 80053; 80178; 81003; 82550; 82962; 83605; 83735; 84100; 84484; 85025; 87086; 87186; 93005; 93010; 99285-25; C9803; U0003; U0005

== ENCOUNTER 2021-04-02 11:06 | Inpatient (IN) | payer OTHER ==
[2021-04-02] MEDS ORDERED: SODIUM CHLORIDE 0.9% 1000 ML INFUS.BAG IV ONE (12:54)
[2021-04-02 13:25] LABS: BASO % 0.2 % (0-2.0); HEMATOCRIT 41.4 % (32.4-45.2); HEMOGLOBIN 13.9 GM/dL (10.7-15.3); LYMPH % 12.3 % (8-40); MCH 28.7 pg (25.7-33.7); MCHC 33.5 g/dl (32.0-36.0); MEAN CELL VOLUME 85.8 fl (80-96); MEAN PLT VOLUME 9.6 fl (7.5-11.1); MONO % 5.7 % (3.8-10.2); NEUT % 80.8 % (42.8-82.8); PLATELET COUNT 138 10^3/uL (134-434); RBC 4.83 M/mm3 (3.60-5.2); RDW 15.7 % (11.6-15.6)
[2021-04-02 13:49] LABS: CALCIUM 9.1 mg/dL (8.5-10.1)
[2021-04-02 13:50] LABS: ALBUMIN 3.8 g/dl (3.4-5.0)
[2021-04-02 13:53] LABS: CREATININE 0.8 mg/dL (0.55-1.3)
[2021-04-02 13:55] LABS: BILIRUBIN,TOTAL 0.6 mg/dL (0.2-1); TOT PROT 7.9 g/dl (6.4-8.2)
[2021-04-02 14:07] LABS: BLOOD UREA NITROGEN 13.5 mg/dL (7-18)
[2021-04-02 16:19] LABS: EPI CELLS 13 /uL (0-25.1); HYALINE CASTS 34 /uL (0-3.1); URINE APPEARANCE CLOUDY; URINE BACTERIA >9,000 /uL (0-1359); URINE BILIRUBIN NEGATIVE (NEGATIVE); URINE COLOR YELLOW; URINE GLUCOSE (UA) NEGATIVE (NEGATIVE); URINE KETONE 3+ (NEGATIVE); URINE LEUK ESTERASE 3+ (NEGATIVE); URINE NITRITE POSITIVE (NEGATIVE); URINE PROTEIN TRACE (NEGATIVE); URINE RBC 57 /uL (0-23.9); URINE WBC 912 /uL (0-25.8)
[2021-04-02] MEDS ORDERED: CEFTRIAXONE 1,000 MG in DEXTROSE 5%-WATER - 50 ML IVPB ONE (17:10)
[2021-04-02] MEDS ORDERED: CEFTRIAXONE 1 GM/50 ML BAG ONE (17:12)
[2021-04-02] MEDS ORDERED: IMIPENEM/CILASTATIN SODIUM 500 MG in SODIUM CHLORIDE 100 ML IVPB ONE (17:23)
[2021-04-02] MEDS: INSULIN SLIDING SCALE (NOVOLOG) 1 VIAL SQ SCH (22:12)
[2021-04-03] MEDS ORDERED: ALBUTEROL SO4 HFA INHALER IH PRN (00:30)
[2021-04-03 01:01] VITALS: BMI 32.8
[2021-04-03] MEDS ORDERED: IMIPENEM/CILASTATIN SODIUM 500 MG in SODIUM CHLORIDE 100 ML IVPB ONE (02:30)
[2021-04-03] MEDS: INSULIN SLIDING SCALE (NOVOLOG) 1 VIAL SQ SCH ×4 (06:39→22:15)
[2021-04-03] MEDS: clonazePAM 2 MG TABLET PO SCH ×3 (06:39→22:03)
[2021-04-03] MEDS ORDERED: IMIPENEM/CILASTATIN SODIUM 500 MG in SODIUM CHLORIDE 100 ML IVPB SCH (08:00)
[2021-04-03 08:54] LABS: BASO % 0.5 % (0-2.0); EOS % 1.7 % (0-4.5); HEMATOCRIT 39.5 % (32.4-45.2); HEMOGLOBIN 13.3 GM/dL (10.7-15.3); LYMPH % 15.5 % (8-40); MCH 29.2 pg (25.7-33.7); MCHC 33.6 g/dl (32.0-36.0); MEAN CELL VOLUME 86.9 fl (80-96); MEAN PLT VOLUME 10.5 fl (7.5-11.1); MONO % 5.9 % (3.8-10.2); NEUT % 76.4 % (42.8-82.8); PLATELET COUNT 109 10^3/uL (134-434); RBC 4.55 M/mm3 (3.60-5.2); RDW 15.9 % (11.6-15.6); WHITE BLOOD COUNT 10.6 K/mm3 (4.0-10.0)
[2021-04-03 08:58] LABS: INR 1.08 (0.83-1.09); PROTHROMBIN TIME (PATIENT) 13.3 SEC (9.7-13.0)
[2021-04-03 09:09] LABS: BLOOD UREA NITROGEN 13.1 mg/dL (7-18); CALCIUM 8.7 mg/dL (8.5-10.1)
[2021-04-03 09:13] LABS: CREATININE 0.6 mg/dL (0.55-1.3)
[2021-04-03] MEDS ORDERED: POTASSIUM CHLORIDE TABS 20 MEQ TABLET.ER (FP) PO ONE (09:16)
[2021-04-03] MEDS ORDERED: PT OWN MED DRAWER 7, Y5N ONE ×2 (09:34→21:09)
[2021-04-03] MEDS: IMIPENEM/CILASTATIN SODIUM 500 MG in SODIUM CHLORIDE 100 ML IVPB SCH ×3 (09:50→22:04)
[2021-04-03] MEDS: CALCIUM (OYSTER SHELL) 500 MG TABLET (FP) PO SCH ×2 (09:51→22:02)
[2021-04-03] MEDS: LOSARTAN POTASSIUM 50 MG TABLET PO SCH (09:51)
[2021-04-03] MEDS: PANTOPRAZOLE 40 MG TABLET PO SCH (09:51)
[2021-04-03] MEDS: FLUTICASONE/SALMETEROL 100 MCG/50 MCG DISKUS IH SCH ×3 (09:51→22:17)
[2021-04-03] MEDS: FOLIC ACID 1 MG TABLET (FP) PO SCH (09:51)
[2021-04-03] MEDS: MULTIVITAMINS THER W-MINERALS COMBO TABLET (FP) PO SCH (09:51)
[2021-04-03] MEDS: amLODIPine BESYLATE 10 MG TABLET (FP) PO SCH (09:52)
[2021-04-03] MEDS: ENOXAPARIN NA (PORCINE) 40 MG/0.4 ML DISP.SYRIN SQ SCH (09:52)
[2021-04-03] MEDS: GABAPENTIN 400 MG CAPSULE PO SCH ×2 (09:52→22:02)
[2021-04-03] MEDS: CHOLECALCIFEROL (VIT D3) 1,000 UNIT (25 MCG) TABLET PO SCH (09:52)
[2021-04-03] MEDS: LURASIDONE HCL 40 MG TABLET PO SCH (09:54)
[2021-04-03] MEDS ORDERED: CEFTRIAXONE 1 GM in DEXTROSE 5%-WATER - 50 ML IVPB SCH (10:00)
[2021-04-03] MEDS ORDERED: PATIENT'S OWN MEDICATION (NON-FORMULARY) (Gabapentin [Gabapentin] 800 MG Tablet) PO SCH (10:00)
[2021-04-04] MEDS: IMIPENEM/CILASTATIN SODIUM 500 MG in SODIUM CHLORIDE 100 ML IVPB SCH (02:48)
[2021-04-04] MEDS: clonazePAM 2 MG TABLET PO SCH ×3 (06:11→21:34)
[2021-04-04] MEDS: INSULIN SLIDING SCALE (NOVOLOG) 1 VIAL SQ SCH ×4 (06:13→21:36)
[2021-04-04 08:20] LABS: BASO % 0.4 % (0-2.0); EOS % 4.5 % (0-4.5); HEMATOCRIT 38.6 % (32.4-45.2); HEMOGLOBIN 13.1 GM/dL (10.7-15.3); LYMPH % 22.2 % (8-40); MCH 29.4 pg (25.7-33.7); MCHC 33.9 g/dl (32.0-36.0); MEAN CELL VOLUME 86.7 fl (80-96); MEAN PLT VOLUME 10.5 fl (7.5-11.1); MONO % 7.9 % (3.8-10.2); PLATELET COUNT 87 10^3/uL (134-434); RBC 4.46 M/mm3 (3.60-5.2); RDW 15.6 % (11.6-15.6); WHITE BLOOD COUNT 8.7 K/mm3 (4.0-10.0)
[2021-04-04 08:40] LABS: ALBUMIN 3.1 g/dl (3.4-5.0); BLOOD UREA NITROGEN 17.3 mg/dL (7-18); MAGNESIUM 2.4 mg/dL (1.8-2.4)
[2021-04-04 08:43] LABS: CREATININE 0.7 mg/dL (0.55-1.3); PHOSPHOROUS 3.5 mg/dL (2.5-4.9)
[2021-04-04 08:44] LABS: BILIRUBIN,TOTAL 0.6 mg/dL (0.2-1); TOT PROT 6.8 g/dl (6.4-8.2)
[2021-04-04] MEDS: FLUTICASONE/SALMETEROL 100 MCG/50 MCG DISKUS IH SCH ×2 (11:08→21:34)
[2021-04-04] MEDS: GABAPENTIN 400 MG CAPSULE PO SCH ×2 (11:09→21:33)
[2021-04-04] MEDS: CHOLECALCIFEROL (VIT D3) 1,000 UNIT (25 MCG) TABLET PO SCH (11:10)
[2021-04-04] MEDS: PANTOPRAZOLE 40 MG TABLET PO SCH (11:11)
[2021-04-04] MEDS: CALCIUM (OYSTER SHELL) 500 MG TABLET (FP) PO SCH ×2 (11:12→21:33)
[2021-04-04] MEDS: MULTIVITAMINS THER W-MINERALS COMBO TABLET (FP) PO SCH (11:12)
[2021-04-04] MEDS: LOSARTAN POTASSIUM 50 MG TABLET PO SCH (11:12)
[2021-04-04] MEDS: amLODIPine BESYLATE 10 MG TABLET (FP) PO SCH (11:13)
[2021-04-04] MEDS: ENOXAPARIN NA (PORCINE) 40 MG/0.4 ML DISP.SYRIN SQ SCH (11:13)
[2021-04-04] MEDS: LURASIDONE HCL 40 MG TABLET PO SCH (11:13)
[2021-04-04] MEDS: FOLIC ACID 1 MG TABLET (FP) PO SCH (11:14)
[2021-04-04] MEDS ORDERED: PT OWN MED DRAWER 7, Y5N ONE ×2 (14:46→21:13)
[2021-04-04] MEDS: ERTAPENEM SODIUM 1 GM in SODIUM CHLORIDE 50 ML IVPB SCH (14:49)
[2021-04-04] MEDS: ARIPiprazole 10 MG TABLET PO SCH (14:50)
[2021-04-04] MEDS: LACTOBACILLUS ACIDOPHILUS 1 TABLET PO SCH (21:33)
[2021-04-04] MEDS: ATORVASTATIN CA 20 MG TABLET (FP) PO SCH (21:33)
[2021-04-04] MEDS: BENZTROPINE MESYLATE 1 MG TABLET PO SCH (21:33)
[2021-04-04] MEDS ORDERED: ALOSETRON HCL 0.5 MG PO SCH (22:00)
[2021-04-05] MEDS ORDERED: ACETAMINOPHEN 325 MG TABLET (FP) PO ONE (04:51)
[2021-04-05] MEDS: clonazePAM 2 MG TABLET PO SCH ×3 (05:18→21:08)
[2021-04-05] MEDS: INSULIN SLIDING SCALE (NOVOLOG) 1 VIAL SQ SCH ×3 (06:21→21:08)
[2021-04-05] MEDS ORDERED: PT OWN MED DRAWER 7, Y5N ONE ×2 (08:38→21:03)
[2021-04-05] MEDS: FLUTICASONE/SALMETEROL 100 MCG/50 MCG DISKUS IH SCH ×2 (09:42→21:09)
[2021-04-05] MEDS: ARIPiprazole 10 MG TABLET PO SCH (09:42)
[2021-04-05] MEDS: BENZTROPINE MESYLATE 1 MG TABLET PO SCH ×2 (09:42→21:09)
[2021-04-05] MEDS: LOSARTAN POTASSIUM 50 MG TABLET PO SCH (09:42)
[2021-04-05] MEDS: FOLIC ACID 1 MG TABLET (FP) PO SCH (09:43)
[2021-04-05] MEDS: LITHIUM CARBONATE 300 MG CAPSULE PO SCH (09:43)
[2021-04-05] MEDS: LURASIDONE HCL 40 MG TABLET PO SCH (09:44)
[2021-04-05] MEDS: GABAPENTIN 400 MG CAPSULE PO SCH ×2 (09:49→21:09)
[2021-04-05] MEDS: CALCIUM (OYSTER SHELL) 500 MG TABLET (FP) PO SCH ×2 (09:51→21:09)
[2021-04-05] MEDS: amLODIPine BESYLATE 10 MG TABLET (FP) PO SCH (09:51)
[2021-04-05] MEDS: CHOLECALCIFEROL (VIT D3) 1,000 UNIT (25 MCG) TABLET PO SCH (09:52)
[2021-04-05] MEDS: MULTIVITAMINS THER W-MINERALS COMBO TABLET (FP) PO SCH (09:52)
[2021-04-05] MEDS: PANTOPRAZOLE 40 MG TABLET PO SCH (09:52)
[2021-04-05 11:49] LABS: BASO % 0.3 % (0-2.0); EOS % 3.7 % (0-4.5); HEMOGLOBIN 12.4 GM/dL (10.7-15.3); LYMPH % 19.6 % (8-40); MCH 28.9 pg (25.7-33.7); MCHC 33.5 g/dl (32.0-36.0); MEAN CELL VOLUME 86.3 fl (80-96); MEAN PLT VOLUME 10.4 fl (7.5-11.1); NEUT % 68.4 % (42.8-82.8); PLATELET COUNT 61 10^3/uL (134-434); RBC 4.29 M/mm3 (3.60-5.2); RDW 15.7 % (11.6-15.6); WHITE BLOOD COUNT 9.9 K/mm3 (4.0-10.0)
[2021-04-05] MEDS ORDERED: INSULIN (NOVOLOG) ASPART 100 UNITS/ML 10ML VIAL ONE ×2 (12:00→21:04)
[2021-04-05 12:05] LABS: BLOOD UREA NITROGEN 22.6 mg/dL (7-18); CALCIUM 8.1 mg/dL (8.5-10.1); MAGNESIUM 1.8 mg/dL (1.8-2.4)
[2021-04-05 12:08] LABS: CREATININE 0.8 mg/dL (0.55-1.3)
[2021-04-05 12:09] LABS: PHOSPHOROUS 3.7 mg/dL (2.5-4.9)
[2021-04-05] MEDS: ERTAPENEM SODIUM 1 GM in SODIUM CHLORIDE 50 ML IVPB SCH (12:09)
[2021-04-05] MEDS: ATORVASTATIN CA 20 MG TABLET (FP) PO SCH (21:09)
[2021-04-05] MEDS: LACTOBACILLUS ACIDOPHILUS 1 TABLET PO SCH (21:09)
[2021-04-06 05:12] VITALS: BP 110/62; PULSE 84; TEMP 97
[2021-04-06] MEDS: clonazePAM 2 MG TABLET PO SCH (05:30)
[2021-04-06] MEDS: INSULIN SLIDING SCALE (NOVOLOG) 1 VIAL SQ SCH ×2 (05:59→12:12)
[2021-04-06] MEDS ORDERED: PT OWN MED DRAWER 7, Y5N ONE ×2 (11:50→12:30)
[2021-04-06] MEDS: ERTAPENEM SODIUM 1 GM in SODIUM CHLORIDE 50 ML IVPB SCH (11:53)
[2021-04-06] MEDS: amLODIPine BESYLATE 10 MG TABLET (FP) PO SCH (11:54)
[2021-04-06] MEDS: CHOLECALCIFEROL (VIT D3) 1,000 UNIT (25 MCG) TABLET PO SCH (11:54)
[2021-04-06] MEDS: LOSARTAN POTASSIUM 50 MG TABLET PO SCH (11:54)
[2021-04-06] MEDS: MULTIVITAMINS THER W-MINERALS COMBO TABLET (FP) PO SCH (11:54)
[2021-04-06] MEDS: PANTOPRAZOLE 40 MG TABLET PO SCH (11:54)
[2021-04-06] MEDS: CALCIUM (OYSTER SHELL) 500 MG TABLET (FP) PO SCH (11:55)
[2021-04-06] MEDS: GABAPENTIN 400 MG CAPSULE PO SCH (11:55)
[2021-04-06] MEDS: BENZTROPINE MESYLATE 1 MG TABLET PO SCH (11:55)
[2021-04-06] MEDS: FOLIC ACID 1 MG TABLET (FP) PO SCH (11:55)
[2021-04-06] MEDS: ARIPiprazole 10 MG TABLET PO SCH (11:56)
[2021-04-06] MEDS: LITHIUM CARBONATE 300 MG CAPSULE PO SCH (11:57)
[2021-04-06] MEDS: FLUTICASONE/SALMETEROL 100 MCG/50 MCG DISKUS IH SCH (11:57)
[2021-04-06] MEDS: LURASIDONE HCL 40 MG TABLET PO SCH (11:58)
== END 2021-04-06 18:05 | disposition home or self-care (01) | DRG 463 ==
LOC: JER 11:06 → JERBED 17:13 → J6S 20:22
PROVIDERS: ADMIT Internal Medicine; ATTEND Internal Medicine
DX: N39.0 Urinary tract infection, site not specified (principal); B96.1 Klebsiella pneumoniae [K. pneumoniae] as the cause of diseases classified elsewhere; I25.10 Atherosclerotic heart disease of native coronary artery without angina pectoris; E11.9 Type 2 diabetes mellitus without complications; K21.9 Gastro-esophageal reflux disease without esophagitis; I10 Essential (primary) hypertension; E78.5 Hyperlipidemia, unspecified; F41.8 Other specified anxiety disorders; M32.9 Systemic lupus erythematosus, unspecified; F31.9 Bipolar disorder, unspecified; G40.909 Epilepsy, unspecified, not intractable, without status epilepticus; E03.9 Hypothyroidism, unspecified; K52.9 Noninfective gastroenteritis and colitis, unspecified; R32 Unspecified urinary incontinence; N81.4 Uterovaginal prolapse, unspecified; J44.9 Chronic obstructive pulmonary disease, unspecified; D69.6 Thrombocytopenia, unspecified; E87.6 Hypokalemia; Z96.653 Presence of artificial knee joint, bilateral; Z86.19 Personal history of other infectious and parasitic diseases; Z98.84 Bariatric surgery status
CPT/HCPCS: 36415; 71045-TC-FY; 80048; 80053; 81003; 82962; 83605; 83735; 84100; 85025; 85610; 85730; 87040; 87086; 87186; 93005; 93010; 93306-TC; 99285-25; C9803; U0003; U0005

== ENCOUNTER 2021-08-02 10:07 | Inpatient (IN) | payer OTHER ==
[2021-08-02] MEDS ORDERED: SODIUM CHLORIDE 0.9% 500 ML INFUS.BAG IV ONE (11:02)
[2021-08-02] MEDS ORDERED: ACETAMINOPHEN 1000 MG/100 ML BAG IVPB ONE (11:04)
[2021-08-02 11:16] LABS: VENOUS BASE EXCESS 0.6 mmol/L (-2-2); VENOUS O2 SATURATION 65.4 % (70-80); VENOUS PCO2 32.9 mmHg (38-52); VENOUS PH 7.472 (7.310-7.410)
[2021-08-02] MEDS ORDERED: ACETAMINOPHEN INJECTION 100 ML IVPB ONE (11:16)
[2021-08-02 11:21] LABS: BASO % 0.4 % (0-2.0); EOS % 0.1 % (0-4.5); HEMATOCRIT 40.5 % (32.4-45.2); HEMOGLOBIN 13.6 GM/dL (10.7-15.3); MCH 28.3 pg (25.7-33.7); MCHC 33.6 g/dl (32.0-36.0); MEAN CELL VOLUME 84.2 fl (80-96); MEAN PLT VOLUME 10.2 fl (7.5-11.1); NEUT % 78.5 % (42.8-82.8); PLATELET COUNT 71 10^3/uL (134-434); RBC 4.81 M/mm3 (3.60-5.2); RDW 17.2 % (11.6-15.6); WHITE BLOOD COUNT 8.1 K/mm3 (4.0-10.0)
[2021-08-02 11:32] LABS: INR 1.21 (0.83-1.09)
[2021-08-02 11:35] LABS: ACTIVATED PTT 31.8 SECONDS (25.2-36.5)
[2021-08-02 11:41] LABS: ALBUMIN 3.5 g/dl (3.4-5.0); BLOOD UREA NITROGEN 15.4 mg/dL (7-18); CALCIUM 9.3 mg/dL (8.5-10.1); MAGNESIUM 2.5 mg/dL (1.8-2.4)
[2021-08-02 11:45] LABS: CREATININE 0.9 mg/dL (0.55-1.3)
[2021-08-02 11:46] LABS: TOT PROT 7.7 g/dl (6.4-8.2)
[2021-08-02 11:47] LABS: BILIRUBIN,TOTAL 0.4 mg/dL (0.2-1)
[2021-08-02 12:39] LABS: EPI CELLS >36 /uL (0-25.1); HYALINE CASTS 16 /uL (0-3.1); PH,URINE 5.5 (5.0-8.0); URINE APPEARANCE TURBID; URINE BACTERIA >9,000 /uL (0-1359); URINE BILIRUBIN 2+ (NEGATIVE); URINE COLOR DK YELLOW; URINE GLUCOSE (UA) NEGATIVE (NEGATIVE); URINE KETONE 2+ (NEGATIVE); URINE LEUK ESTERASE 1+ (NEGATIVE); URINE NITRITE NEGATIVE (NEGATIVE); URINE PROTEIN 2+ (NEGATIVE); URINE RBC 94 /uL (0-23.9); URINE UROBILINOGEN 0.2 mg/dL (0.2-1.0); URINE WBC 1887 /uL (0-25.8)
[2021-08-02 13:09] LABS: PHENCYCLIDINE,URINE NEGATIVE (NEGATIVE)
[2021-08-02 13:10] LABS: OPIATES, URI NEGATIVE (NEGATIVE); URINE AMPHETAMINES NEGATIVE (NEGATIVE); URINE BARBITURATES NEGATIVE (NEGATIVE); URINE BENZODIAZEPINES NEGATIVE (NEGATIVE)
[2021-08-02] MEDS ORDERED: PIPERACILLIN/TAZOB 4.5 GM 4.5 GM in DEXTROSE 5%-WATER 100 ML IVPB ONE (13:17)
[2021-08-02 13:24] LABS: COCAINE, UR NEGATIVE (NEGATIVE); METHADONE, UR NEGATIVE (NEGATIVE)
[2021-08-02] MEDS ORDERED: PIPERACILLIN/TAZOB 4.5 GM 4.5 GM/100 ML BAG IVPB ONE (13:49)
[2021-08-02] MEDS ORDERED: PATIENT'S OWN MEDICATION (NON-FORMULARY) (Semaglutide [Ozempic] 1 MG/0.75 ML Pen.Injctr) SQ SCH (16:30)
[2021-08-02 17:50] LABS: EPI CELLS 25 /uL (0-25.1); HYALINE CASTS 17 /uL (0-3.1); PH,URINE 5.5 (5.0-8.0); URINE APPEARANCE CLOUDY; URINE BACTERIA 134 /uL (0-1359); URINE BILIRUBIN NEGATIVE (NEGATIVE); URINE COLOR YELLOW; URINE GLUCOSE (UA) NEGATIVE (NEGATIVE); URINE KETONE 1+ (NEGATIVE); URINE LEUK ESTERASE TRACE (NEGATIVE); URINE NITRITE NEGATIVE (NEGATIVE); URINE PROTEIN 2+ (NEGATIVE); URINE UROBILINOGEN 0.2 mg/dL (0.2-1.0); URINE WBC 824 /uL (0-25.8)
[2021-08-02 18:43] VITALS: BMI 30.4
[2021-08-02] MEDS ORDERED: PIPERACILLIN/TAZOBACTAM 3.375 GM VIAL IVPB ONE (19:27)
[2021-08-02] MEDS ORDERED: DEXTROSE 5%-WATER - 50 ML IVPB ONE (19:27)
[2021-08-02] MEDS: PIPERACILLIN/TAZOB 3.375 GM 3.375 GM in DEXTROSE 5%-WATER - 50 ML IVPB SCH (19:42)
[2021-08-02] MEDS: ZOLPIDEM TARTRATE 5 MG TABLET PO PRN (21:19)
[2021-08-02] MEDS: GABAPENTIN 400 MG CAPSULE PO SCH (21:19)
[2021-08-02] MEDS: lamoTRIgine 100 MG TABLET PO SCH (21:19)
[2021-08-02] MEDS: clonazePAM 0.5 MG TABLET PO SCH (21:19)
[2021-08-02] MEDS: ATORVASTATIN CA 20 MG TABLET (FP) PO SCH (21:19)
[2021-08-02] MEDS: FLUTICASONE/SALMETEROL 100 MCG/50 MCG DISKUS IH SCH ×2 (21:47→21:48)
[2021-08-02] MEDS: BENZTROPINE MESYLATE 1 MG TABLET PO SCH (21:47)
[2021-08-02] MEDS: ALBUTEROL SO4 HFA INHALER IH PRN (21:50)
[2021-08-03] MEDS ORDERED: PIPERACILLIN/TAZOBACTAM 3.375 GM VIAL IVPB ONE (00:45)
[2021-08-03] MEDS ORDERED: DEXTROSE 5%-WATER - 50 ML IVPB ONE (00:45)
[2021-08-03] MEDS: PIPERACILLIN/TAZOB 3.375 GM 3.375 GM in DEXTROSE 5%-WATER - 50 ML IVPB SCH (01:18)
[2021-08-03] MEDS: clonazePAM 0.5 MG TABLET PO SCH ×3 (08:43→22:05)
[2021-08-03] MEDS ORDERED: ERTAPENEM SODIUM 1 GM in SODIUM CHLORIDE 50 ML IVPB ONE (09:00)
[2021-08-03 09:08] LABS: BASO % 0.3 % (0-2.0); EOS % 4.3 % (0-4.5); HEMOGLOBIN 12.6 GM/dL (10.7-15.3); LYMPH % 19.6 % (8-40); MCH 28.3 pg (25.7-33.7); MEAN CELL VOLUME 85.7 fl (80-96); MEAN PLT VOLUME 11.1 fl (7.5-11.1); MONO % 6.8 % (3.8-10.2); PLATELET COUNT 62 10^3/uL (134-434); RBC 4.44 M/mm3 (3.60-5.2); RDW 17.1 % (11.6-15.6); WHITE BLOOD COUNT 7.1 K/mm3 (4.0-10.0)
[2021-08-03 09:47] LABS: BLOOD UREA NITROGEN 18.8 mg/dL (7-18)
[2021-08-03 09:48] LABS: CALCIUM 8.5 mg/dL (8.5-10.1)
[2021-08-03] MEDS ORDERED: CANDESARTAN CILEXETIL 16 MG PO SCH (10:00)
[2021-08-03] MEDS ORDERED: ARIPiprazole 5 MG TABLET ONE (10:01)
[2021-08-03] MEDS: amLODIPine BESYLATE 10 MG TABLET (FP) PO SCH (10:02)
[2021-08-03] MEDS: lamoTRIgine 100 MG TABLET PO SCH ×2 (10:02→22:05)
[2021-08-03] MEDS: PANTOPRAZOLE 40 MG TABLET PO SCH (10:02)
[2021-08-03] MEDS: FOLIC ACID 1 MG TABLET (FP) PO SCH (10:02)
[2021-08-03] MEDS: GABAPENTIN 400 MG CAPSULE PO SCH ×2 (10:02→22:05)
[2021-08-03] MEDS: LOSARTAN POTASSIUM 50 MG TABLET PO SCH (10:02)
[2021-08-03] MEDS: FLUTICASONE/SALMETEROL 100 MCG/50 MCG DISKUS IH SCH ×2 (10:03→22:50)
[2021-08-03] MEDS: CHOLECALCIFEROL (VIT D3) 1,000 UNIT (25 MCG) TABLET PO SCH (10:03)
[2021-08-03] MEDS: ARIPiprazole 10 MG TABLET PO SCH (10:03)
[2021-08-03] MEDS: BENZTROPINE MESYLATE 1 MG TABLET PO SCH ×2 (10:04→22:49)
[2021-08-03] MEDS: ENOXAPARIN NA (PORCINE) 40 MG/0.4 ML DISP.SYRIN SQ SCH (10:05)
[2021-08-03] MEDS: ALBUTEROL SO4 HFA INHALER IH PRN ×3 (10:05→23:45)
[2021-08-03] MEDS: INSULIN SLIDING SCALE (NOVOLOG) 1 VIAL SQ SCH ×2 (11:05→16:25)
[2021-08-03] MEDS: LITHIUM CARBONATE 300 MG CAPSULE PO SCH (11:25)
[2021-08-03] MEDS: LURASIDONE HCL 40 MG TABLET PO SCH (11:25)
[2021-08-03] MEDS ORDERED: ALBUTEROL SO4 2.5/IPRATROPIUM 0.5 INH SOL 3 ML VIAL.NEB. NEB ONE (16:26)
[2021-08-03] MEDS: ATORVASTATIN CA 20 MG TABLET (FP) PO SCH (22:05)
[2021-08-03] MEDS ORDERED: ACETAMINOPHEN 325 MG TABLET (FP) PO ONE (22:29)
[2021-08-03] MEDS: ZOLPIDEM TARTRATE 5 MG TABLET PO PRN (22:52)
[2021-08-03] MEDS ORDERED: BISMUTH SUBSALICYLATE 524 MG/30 ML PO ONE (23:28)
[2021-08-04] MEDS: INSULIN SLIDING SCALE (NOVOLOG) 1 VIAL SQ SCH ×3 (06:42→18:13)
[2021-08-04] MEDS: PIPERACILLIN/TAZOB 3.375 GM 3.375 GM in DEXTROSE 5%-WATER - 50 ML IVPB SCH (07:29)
[2021-08-04] MEDS ORDERED: ERTAPENEM SODIUM 1 GM in SODIUM CHLORIDE 50 ML IVPB SCH (10:00)
[2021-08-04] MEDS ORDERED: ACETAMINOPHEN 325 MG TABLET (FP) PO ONE (10:27)
[2021-08-04] MEDS ORDERED: ARIPiprazole 5 MG TABLET ONE (10:55)
[2021-08-04] MEDS: PANTOPRAZOLE 40 MG TABLET PO SCH (10:59)
[2021-08-04] MEDS: lamoTRIgine 100 MG TABLET PO SCH ×2 (10:59→21:30)
[2021-08-04] MEDS: BENZTROPINE MESYLATE 1 MG TABLET PO SCH ×2 (10:59→21:30)
[2021-08-04] MEDS: amLODIPine BESYLATE 10 MG TABLET (FP) PO SCH (10:59)
[2021-08-04] MEDS: clonazePAM 0.5 MG TABLET PO SCH ×2 (10:59→21:31)
[2021-08-04] MEDS: LURASIDONE HCL 40 MG TABLET PO SCH (10:59)
[2021-08-04] MEDS: LOSARTAN POTASSIUM 50 MG TABLET PO SCH (10:59)
[2021-08-04] MEDS: LITHIUM CARBONATE 300 MG CAPSULE PO SCH (10:59)
[2021-08-04] MEDS: FOLIC ACID 1 MG TABLET (FP) PO SCH (11:00)
[2021-08-04] MEDS: CHOLECALCIFEROL (VIT D3) 1,000 UNIT (25 MCG) TABLET PO SCH (11:00)
[2021-08-04] MEDS: GABAPENTIN 400 MG CAPSULE PO SCH ×2 (11:00→21:31)
[2021-08-04] MEDS: ENOXAPARIN NA (PORCINE) 40 MG/0.4 ML DISP.SYRIN SQ SCH (11:00)
[2021-08-04] MEDS: FLUTICASONE/SALMETEROL 100 MCG/50 MCG DISKUS IH SCH ×2 (11:01→21:31)
[2021-08-04] MEDS: ARIPiprazole 10 MG TABLET PO SCH (11:01)
[2021-08-04] MEDS: ERTAPENEM SODIUM 1 GM in SODIUM CHLORIDE 50 ML IVPB SCH (11:01)
[2021-08-04] MEDS: ALBUTEROL SO4 HFA INHALER IH PRN ×2 (11:01→21:34)
[2021-08-04 11:10] LABS: BASO % 0.2 % (0-2.0); EOS % 7.8 % (0-4.5); HEMATOCRIT 38.9 % (32.4-45.2); HEMOGLOBIN 12.4 GM/dL (10.7-15.3); LYMPH % 32.6 % (8-40); MCH 27.8 pg (25.7-33.7); MCHC 31.9 g/dl (32.0-36.0); MEAN CELL VOLUME 87.1 fl (80-96); MEAN PLT VOLUME 11.9 fl (7.5-11.1); NEUT % 53.4 % (42.8-82.8); PLATELET COUNT 79 10^3/uL (134-434); RBC 4.46 M/mm3 (3.60-5.2); RDW 17.2 % (11.6-15.6); WHITE BLOOD COUNT 5.2 K/mm3 (4.0-10.0)
[2021-08-04 11:19] LABS: CALCIUM 8.6 mg/dL (8.5-10.1)
[2021-08-04 11:20] LABS: ALBUMIN 3.1 g/dl (3.4-5.0); BLOOD UREA NITROGEN 29.8 mg/dL (7-18); MAGNESIUM 2.8 mg/dL (1.8-2.4)
[2021-08-04 11:22] LABS: CREATININE 1.5 mg/dL (0.55-1.3); PHOSPHOROUS 4.4 mg/dL (2.5-4.9)
[2021-08-04 11:24] LABS: BILIRUBIN,TOTAL 1.1 mg/dL (0.2-1)
[2021-08-04] MEDS ORDERED: INSULIN (NOVOLOG) ASPART 100 UNITS/ML 10ML VIAL ONE (11:44)
[2021-08-04 12:08] LABS: HIV INTERPRETATION NEGATIVE (NEGATIVE)
[2021-08-04] MEDS: ALOSETRON HCL 0.5 MG PO SCH (18:03)
[2021-08-04] MEDS: ATORVASTATIN CA 20 MG TABLET (FP) PO SCH (21:30)
[2021-08-05] MEDS: INSULIN SLIDING SCALE (NOVOLOG) 1 VIAL SQ SCH ×3 (06:32→17:23)
[2021-08-05] MEDS ORDERED: ARIPiprazole 5 MG TABLET ONE (11:11)
[2021-08-05 11:12] LABS: BASO % 0.6 % (0-2.0); EOS % 6.9 % (0-4.5); HEMATOCRIT 38.8 % (32.4-45.2); HEMOGLOBIN 12.5 GM/dL (10.7-15.3); LYMPH % 26.1 % (8-40); MCH 28.1 pg (25.7-33.7); MCHC 32.2 g/dl (32.0-36.0); MEAN CELL VOLUME 87.1 fl (80-96); MEAN PLT VOLUME 11.1 fl (7.5-11.1); MONO % 7.6 % (3.8-10.2); NEUT % 58.8 % (42.8-82.8); PLATELET COUNT 98 10^3/uL (134-434); RBC 4.45 M/mm3 (3.60-5.2); WHITE BLOOD COUNT 6.7 K/mm3 (4.0-10.0)
[2021-08-05] MEDS: lamoTRIgine 100 MG TABLET PO SCH ×2 (11:13→22:08)
[2021-08-05] MEDS: clonazePAM 0.5 MG TABLET PO SCH ×2 (11:13→22:08)
[2021-08-05] MEDS: CHOLECALCIFEROL (VIT D3) 1,000 UNIT (25 MCG) TABLET PO SCH (11:14)
[2021-08-05] MEDS: PANTOPRAZOLE 40 MG TABLET PO SCH (11:14)
[2021-08-05] MEDS: GABAPENTIN 400 MG CAPSULE PO SCH ×2 (11:14→22:08)
[2021-08-05] MEDS: FOLIC ACID 1 MG TABLET (FP) PO SCH (11:14)
[2021-08-05] MEDS: amLODIPine BESYLATE 10 MG TABLET (FP) PO SCH (11:15)
[2021-08-05] MEDS: ERTAPENEM SODIUM 1 GM in SODIUM CHLORIDE 50 ML IVPB SCH (11:15)
[2021-08-05] MEDS: BENZTROPINE MESYLATE 1 MG TABLET PO SCH ×2 (11:16→22:08)
[2021-08-05] MEDS: FLUTICASONE/SALMETEROL 100 MCG/50 MCG DISKUS IH SCH ×2 (11:16→22:08)
[2021-08-05] MEDS: ARIPiprazole 10 MG TABLET PO SCH (11:16)
[2021-08-05] MEDS: LURASIDONE HCL 40 MG TABLET PO SCH (11:17)
[2021-08-05] MEDS: LITHIUM CARBONATE 300 MG CAPSULE PO SCH (11:17)
[2021-08-05 11:45] LABS: CALCIUM 8.5 mg/dL (8.5-10.1)
[2021-08-05 11:46] LABS: ALBUMIN 3.2 g/dl (3.4-5.0); BLOOD UREA NITROGEN 30.7 mg/dL (7-18); MAGNESIUM 2.8 mg/dL (1.8-2.4)
[2021-08-05 11:49] LABS: CREATININE 1.4 mg/dL (0.55-1.3)
[2021-08-05 11:50] LABS: BILIRUBIN,TOTAL 0.3 mg/dL (0.2-1)
[2021-08-05 11:51] LABS: TOT PROT 7.2 g/dl (6.4-8.2)
[2021-08-05] MEDS: SODIUM CHLORIDE 1,000 ML IV SCH (18:10)
[2021-08-05] MEDS: CEFUROXIME AXETIL 500 MG TABLET PO SCH (22:08)
[2021-08-05] MEDS: ATORVASTATIN CA 20 MG TABLET (FP) PO SCH (22:08)
[2021-08-06] MEDS: SODIUM CHLORIDE 1,000 ML IV SCH (05:48)
[2021-08-06] MEDS: INSULIN SLIDING SCALE (NOVOLOG) 1 VIAL SQ SCH ×3 (06:07→18:19)
[2021-08-06] MEDS: ALBUTEROL SO4 HFA INHALER IH PRN (06:08)
[2021-08-06] MEDS ORDERED: ALBUTEROL SO4 0.083% IH SOL 2.5 MG/3 ML VIAL.NEB. NEB PRN (09:15)
[2021-08-06 09:28] LABS: BASO % 0.4 % (0-2.0); EOS % 7.1 % (0-4.5); HEMATOCRIT 36.9 % (32.4-45.2); HEMOGLOBIN 11.8 GM/dL (10.7-15.3); LYMPH % 26.1 % (8-40); MCH 27.7 pg (25.7-33.7); MCHC 31.9 g/dl (32.0-36.0); MEAN CELL VOLUME 86.6 fl (80-96); MEAN PLT VOLUME 10.9 fl (7.5-11.1); MONO % 6.2 % (3.8-10.2); NEUT % 60.2 % (42.8-82.8); PLATELET COUNT 119 10^3/uL (134-434); RBC 4.26 M/mm3 (3.60-5.2); RDW 17.2 % (11.6-15.6); WHITE BLOOD COUNT 6.6 K/mm3 (4.0-10.0)
[2021-08-06] MEDS ORDERED: ARIPiprazole 5 MG TABLET ONE (09:34)
[2021-08-06] MEDS: CHOLECALCIFEROL (VIT D3) 1,000 UNIT (25 MCG) TABLET PO SCH (09:50)
[2021-08-06] MEDS: lamoTRIgine 100 MG TABLET PO SCH ×2 (09:50→22:00)
[2021-08-06] MEDS: GABAPENTIN 400 MG CAPSULE PO SCH ×2 (09:50→22:01)
[2021-08-06] MEDS: FOLIC ACID 1 MG TABLET (FP) PO SCH (09:50)
[2021-08-06] MEDS: FLUTICASONE/SALMETEROL 100 MCG/50 MCG DISKUS IH SCH ×2 (09:51→22:11)
[2021-08-06] MEDS: ARIPiprazole 10 MG TABLET PO SCH (09:51)
[2021-08-06] MEDS: amLODIPine BESYLATE 10 MG TABLET (FP) PO SCH (09:51)
[2021-08-06] MEDS: PANTOPRAZOLE 40 MG TABLET PO SCH (09:51)
[2021-08-06] MEDS: CEFUROXIME AXETIL 500 MG TABLET PO SCH ×2 (09:51→22:10)
[2021-08-06] MEDS: clonazePAM 0.5 MG TABLET PO SCH ×2 (09:51→22:00)
[2021-08-06] MEDS: BENZTROPINE MESYLATE 1 MG TABLET PO SCH ×2 (09:52→22:10)
[2021-08-06] MEDS: LITHIUM CARBONATE 300 MG CAPSULE PO SCH (09:52)
[2021-08-06 09:53] LABS: CALCIUM 8.2 mg/dL (8.5-10.1); MAGNESIUM 2.4 mg/dL (1.8-2.4)
[2021-08-06] MEDS: LURASIDONE HCL 40 MG TABLET PO SCH (09:53)
[2021-08-06 09:54] LABS: BLOOD UREA NITROGEN 25.4 mg/dL (7-18)
[2021-08-06 09:56] LABS: PHOSPHOROUS 3.7 mg/dL (2.5-4.9)
[2021-08-06 09:57] LABS: CREATININE 0.9 mg/dL (0.55-1.3)
[2021-08-06] MEDS ORDERED: ALBUTEROL SO4 0.5 % INH SOLN 2.5 MG/0.5 ML VIAL.NEB. NEB PRN ×2 (10:02→10:13)
[2021-08-06] MEDS ORDERED: guaiFENesin 200 MG/10 ML 10 ML UNIT-DOSE CUPS PO PRN (10:02)
[2021-08-06] MEDS: ENOXAPARIN NA (PORCINE) 40 MG/0.4 ML DISP.SYRIN SQ SCH (18:41)
[2021-08-06] MEDS: ATORVASTATIN CA 20 MG TABLET (FP) PO SCH (22:00)
[2021-08-07] MEDS: ALBUTEROL SO4 0.083% IH SOL 2.5 MG/3 ML VIAL.NEB. NEB PRN ×4 (00:47→19:47)
[2021-08-07] MEDS: INSULIN SLIDING SCALE (NOVOLOG) 1 VIAL SQ SCH ×3 (06:30→17:37)
[2021-08-07 09:05] LABS: BASO % 0.2 % (0-2.0); EOS % 5.5 % (0-4.5); HEMATOCRIT 34.3 % (32.4-45.2); HEMOGLOBIN 11.5 GM/dL (10.7-15.3); LYMPH % 28.2 % (8-40); MCH 28.7 pg (25.7-33.7); MCHC 33.4 g/dl (32.0-36.0); MEAN PLT VOLUME 10.5 fl (7.5-11.1); MONO % 6.7 % (3.8-10.2); NEUT % 59.4 % (42.8-82.8); PLATELET COUNT 152 10^3/uL (134-434); RBC 3.99 M/mm3 (3.60-5.2); RDW 16.9 % (11.6-15.6); WHITE BLOOD COUNT 7.4 K/mm3 (4.0-10.0)
[2021-08-07 09:31] LABS: BLOOD UREA NITROGEN 20.2 mg/dL (7-18); CALCIUM 8.6 mg/dL (8.5-10.1); MAGNESIUM 2.5 mg/dL (1.8-2.4)
[2021-08-07 09:35] LABS: CREATININE 0.8 mg/dL (0.55-1.3); PHOSPHOROUS 3.7 mg/dL (2.5-4.9)
[2021-08-07] MEDS ORDERED: ARIPiprazole 5 MG TABLET ONE (09:58)
[2021-08-07] MEDS: GABAPENTIN 400 MG CAPSULE PO SCH ×2 (10:00→22:43)
[2021-08-07] MEDS: ENOXAPARIN NA (PORCINE) 40 MG/0.4 ML DISP.SYRIN SQ SCH (10:00)
[2021-08-07] MEDS: CHOLECALCIFEROL (VIT D3) 1,000 UNIT (25 MCG) TABLET PO SCH (10:01)
[2021-08-07] MEDS: LOSARTAN POTASSIUM 50 MG TABLET PO SCH (10:02)
[2021-08-07] MEDS: lamoTRIgine 100 MG TABLET PO SCH ×2 (10:02→22:43)
[2021-08-07] MEDS: FOLIC ACID 1 MG TABLET (FP) PO SCH (10:02)
[2021-08-07] MEDS: PANTOPRAZOLE 40 MG TABLET PO SCH (10:02)
[2021-08-07] MEDS: clonazePAM 0.5 MG TABLET PO SCH ×2 (10:02→22:43)
[2021-08-07] MEDS: amLODIPine BESYLATE 10 MG TABLET (FP) PO SCH (10:03)
[2021-08-07] MEDS: ARIPiprazole 10 MG TABLET PO SCH (10:03)
[2021-08-07] MEDS: CEFUROXIME AXETIL 500 MG TABLET PO SCH ×2 (10:03→22:43)
[2021-08-07] MEDS: FLUTICASONE/SALMETEROL 100 MCG/50 MCG DISKUS IH SCH ×2 (10:03→22:44)
[2021-08-07] MEDS: LITHIUM CARBONATE 300 MG CAPSULE PO SCH (10:04)
[2021-08-07] MEDS: LURASIDONE HCL 40 MG TABLET PO SCH (10:06)
[2021-08-07] MEDS: BENZTROPINE MESYLATE 1 MG TABLET PO SCH ×2 (10:06→22:43)
[2021-08-07] MEDS ORDERED: ACETAMINOPHEN 325 MG TABLET (FP) PO PRN (13:27)
[2021-08-07] MEDS: ATORVASTATIN CA 20 MG TABLET (FP) PO SCH (22:43)
[2021-08-08] MEDS ORDERED: INSULIN (NOVOLOG) ASPART 100 UNITS/ML 10ML VIAL ONE (05:22)
[2021-08-08] MEDS: INSULIN SLIDING SCALE (NOVOLOG) 1 VIAL SQ SCH ×2 (06:27→12:11)
[2021-08-08 08:47] VITALS: BP 119/64; PULSE 67; TEMP 98
[2021-08-08] MEDS ORDERED: ARIPiprazole 5 MG TABLET ONE (09:40)
[2021-08-08] MEDS: lamoTRIgine 100 MG TABLET PO SCH (09:44)
[2021-08-08] MEDS: clonazePAM 0.5 MG TABLET PO SCH (09:44)
[2021-08-08] MEDS: PANTOPRAZOLE 40 MG TABLET PO SCH (09:44)
[2021-08-08] MEDS: ENOXAPARIN NA (PORCINE) 40 MG/0.4 ML DISP.SYRIN SQ SCH (09:44)
[2021-08-08] MEDS: FOLIC ACID 1 MG TABLET (FP) PO SCH (09:44)
[2021-08-08] MEDS: LOSARTAN POTASSIUM 50 MG TABLET PO SCH (09:44)
[2021-08-08] MEDS: amLODIPine BESYLATE 10 MG TABLET (FP) PO SCH (09:45)
[2021-08-08] MEDS: CHOLECALCIFEROL (VIT D3) 1,000 UNIT (25 MCG) TABLET PO SCH (09:45)
[2021-08-08] MEDS: GABAPENTIN 400 MG CAPSULE PO SCH (09:45)
[2021-08-08] MEDS: ARIPiprazole 10 MG TABLET PO SCH (09:45)
[2021-08-08] MEDS: BENZTROPINE MESYLATE 1 MG TABLET PO SCH (09:46)
[2021-08-08] MEDS: FLUTICASONE/SALMETEROL 100 MCG/50 MCG DISKUS IH SCH (09:46)
[2021-08-08] MEDS: LITHIUM CARBONATE 300 MG CAPSULE PO SCH (09:46)
[2021-08-08] MEDS: CEFUROXIME AXETIL 500 MG TABLET PO SCH (09:46)
[2021-08-08] MEDS: LURASIDONE HCL 40 MG TABLET PO SCH (09:46)
[2021-08-08 11:04] LABS: BASO % 0.3 % (0-2.0); EOS % 4.3 % (0-4.5); HEMATOCRIT 36.5 % (32.4-45.2); HEMOGLOBIN 11.7 GM/dL (10.7-15.3); LYMPH % 20.6 % (8-40); MCH 27.8 pg (25.7-33.7); MCHC 32.1 g/dl (32.0-36.0); MEAN CELL VOLUME 86.5 fl (80-96); MEAN PLT VOLUME 10.7 fl (7.5-11.1); NEUT % 68.8 % (42.8-82.8); PLATELET COUNT 223 10^3/uL (134-434); RBC 4.22 M/mm3 (3.60-5.2); RDW 16.7 % (11.6-15.6); WHITE BLOOD COUNT 8.1 K/mm3 (4.0-10.0)
[2021-08-08 11:19] LABS: CALCIUM 8.6 mg/dL (8.5-10.1)
[2021-08-08 11:20] LABS: BLOOD UREA NITROGEN 22.2 mg/dL (7-18); MAGNESIUM 2.3 mg/dL (1.8-2.4)
[2021-08-08 11:23] LABS: CREATININE 0.8 mg/dL (0.55-1.3); PHOSPHOROUS 3.6 mg/dL (2.5-4.9)
== END 2021-08-08 13:48 | disposition home or self-care (01) | DRG 463 ==
LOC: JER 10:07 → JERBED 13:17 → J8W 18:18
PROVIDERS: ADMIT Internal Medicine; ATTEND Internal Medicine
DX: N39.0 Urinary tract infection, site not specified (principal); G92.8 Other toxic encephalopathy; D69.6 Thrombocytopenia, unspecified; E11.9 Type 2 diabetes mellitus without complications; K21.9 Gastro-esophageal reflux disease without esophagitis; J45.909 Unspecified asthma, uncomplicated; G40.909 Epilepsy, unspecified, not intractable, without status epilepticus; F41.9 Anxiety disorder, unspecified; F31.9 Bipolar disorder, unspecified; Z91.51 Personal history of suicidal behavior; I10 Essential (primary) hypertension; Z87.440 Personal history of urinary (tract) infections
CPT/HCPCS: 36415; 70450-TC; 70551-TC; 71045-TC-FY; 80048; 80053; 80307; 81003; 82550; 82553; 82803; 82962; 83605; 83735; 84100; 84439; 84443; 84484; 85025; 85610; 85730; 86850; 86870; 86900; 86901; 86902; 87040; 87086; 87186; 87389; 87804; 93005; 93010; 94640; 99285-25; C9803; U0003; U0005

== ENCOUNTER 2021-10-11 10:55 | Inpatient (IN) | payer OTHER ==
[2021-10-11] MEDS ORDERED: SODIUM CHLORIDE 0.9% 500 ML INFUS.BAG IV ONE (11:30)
[2021-10-11 12:16] LABS: BASO % 0.4 % (0-2.0); EOS % 0.8 % (0-4.5); HEMATOCRIT 41.1 % (32.4-45.2); HEMOGLOBIN 13.7 GM/dL (10.7-15.3); LYMPH % 16.6 % (8-40); MCH 26.8 pg (25.7-33.7); MCHC 33.2 g/dl (32.0-36.0); MEAN CELL VOLUME 80.8 fl (80-96); MEAN PLT VOLUME 9.6 fl (7.5-11.1); MONO % 6.7 % (3.8-10.2); NEUT % 75.5 % (42.8-82.8); PLATELET COUNT 37 10^3/uL (134-434); RBC 5.09 M/mm3 (3.60-5.2); RDW 16.8 % (11.6-15.6); WHITE BLOOD COUNT 9.8 K/mm3 (4.0-10.0)
[2021-10-11 12:20] LABS: EPI CELLS 6 /uL (0-25.1); HYALINE CASTS 4 /uL (0-3.1); PH,URINE 5.5 (5.0-8.0); URINE APPEARANCE CLOUDY; URINE BACTERIA >9,000 /uL (0-1359); URINE BILIRUBIN NEGATIVE (NEGATIVE); URINE COLOR YELLOW; URINE GLUCOSE (UA) NEGATIVE (NEGATIVE); URINE KETONE 3+ (NEGATIVE); URINE LEUK ESTERASE 2+ (NEGATIVE); URINE NITRITE POSITIVE (NEGATIVE); URINE PROTEIN 1+ (NEGATIVE); URINE UROBILINOGEN 0.2 mg/dL (0.2-1.0); URINE WBC 357 /uL (0-25.8)
[2021-10-11 12:35] LABS: CALCIUM 9.1 mg/dL (8.5-10.1)
[2021-10-11 12:36] LABS: ALBUMIN 3.3 g/dl (3.4-5.0); BLOOD UREA NITROGEN 12.8 mg/dL (7-18); MAGNESIUM 2.3 mg/dL (1.8-2.4)
[2021-10-11 12:38] LABS: PHOSPHOROUS 3.4 mg/dL (2.5-4.9)
[2021-10-11 12:39] LABS: CREATININE 0.7 mg/dL (0.55-1.3)
[2021-10-11 12:40] LABS: BILIRUBIN,TOTAL 0.4 mg/dL (0.2-1); TOT PROT 7.5 g/dl (6.4-8.2)
[2021-10-11] MEDS ORDERED: MEROPENEM 1 GM in DEXTROSE 5%-WATER 100 ML IVPB ONE (12:49)
[2021-10-11] MEDS ORDERED: VANCOMYCIN 1 GM in D5W (PRE-DOCKED) 1,000 MG/250 ML IVPB ONE (12:51)
[2021-10-11] MEDS ORDERED: MEROPENEM 1 GM VIAL (RESTRICTED TO ID) IVPB ONE (12:54)
[2021-10-11] MEDS ORDERED: VANCOMYCIN 1 GRAM (PRE-DOCKED) 1,000 MG/250 ML BAG IVPB ONE (12:54)
[2021-10-11] MEDS ORDERED: ACETAMINOPHEN 1000 MG/100 ML BAG IVPB ONE (15:56)
[2021-10-11] MEDS ORDERED: ACETAMINOPHEN INJECTION 100 ML IVPB ONE (16:00)
[2021-10-11] MEDS ORDERED: VANCOMYCIN/WATER FOR INJ (PEG) 1,000 MG/200 ML BAG IVPB SCH (18:45)
[2021-10-11] MEDS ORDERED: ACETAMINOPHEN 325 MG TABLET (FP) PO PRN (19:02)
[2021-10-11] MEDS: INSULIN SLIDING SCALE (NOVOLOG) 1 VIAL SQ SCH (23:54)
[2021-10-12] MEDS ORDERED: MEROPENEM 1 GM VIAL (RESTRICTED TO ID) IVPB ONE ×2 (01:08→13:36)
[2021-10-12] MEDS ORDERED: DEXTROSE 5%-WATER 100 ML IVPB ONE ×2 (01:09→13:36)
[2021-10-12] MEDS: MEROPENEM 1 GM in DEXTROSE 5%-WATER 100 ML IVPB SCH ×2 (01:12→13:38)
[2021-10-12] MEDS: VANCOMYCIN/WATER FOR INJ (PEG) 1,000 MG/200 ML BAG IVPB SCH ×2 (02:06→14:50)
[2021-10-12] MEDS: INSULIN SLIDING SCALE (NOVOLOG) 1 VIAL SQ SCH ×4 (06:18→22:38)
[2021-10-12 08:52] LABS: HEMATOCRIT 39.5 % (32.4-45.2); HEMOGLOBIN 12.9 GM/dL (10.7-15.3); MCH 26.7 pg (25.7-33.7); MCHC 32.6 g/dl (32.0-36.0); MEAN PLT VOLUME 8.8 fl (7.5-11.1); RBC 4.82 M/mm3 (3.60-5.2); RDW 16.8 % (11.6-15.6); WHITE BLOOD COUNT 8.9 K/mm3 (4.0-10.0)
[2021-10-12 09:09] LABS: CALCIUM 8.7 mg/dL (8.5-10.1)
[2021-10-12 09:10] LABS: BLOOD UREA NITROGEN 12.2 mg/dL (7-18)
[2021-10-12 09:13] LABS: CREATININE 0.7 mg/dL (0.55-1.3)
[2021-10-12 10:00] LABS: PLATELET COUNT 18 10^3/uL (134-434)
[2021-10-12 17:07] LABS: ANISOCYTOSIS 0; HELMET CELLS 0; HOWELL-JOLLY BODIES 0; MACROCYTOSIS 0; OVALOCYTE 0; PLATELET ESTIMATE DECREASED; ROULEAU 0; SICKELED CELLS 0; TARGET CELLS 0; TEAR DROP CELLS 0; TOXIC GRANULATION 0
[2021-10-12] MEDS ORDERED: PATIENT'S OWN MEDICATION (NON-FORMULARY) (Lurasidone Hcl [Latuda] 60 MG Tablet) PO SCH (18:45)
[2021-10-12] MEDS ORDERED: ONDANSETRON 4 MG/2 ML VIAL IVPUSH PRN (19:02)
[2021-10-12] MEDS ORDERED: ALOSETRON HCL 0.5 MG PO SCH (22:00)
[2021-10-12] MEDS ORDERED: PATIENT'S OWN MEDICATION (NON-FORMULARY) (Gabapentin [Gabapentin] 800 MG Tablet) PO SCH (22:00)
[2021-10-12] MEDS: ERTAPENEM SODIUM 1 GM in SODIUM CHLORIDE 50 ML IVPB SCH (22:37)
[2021-10-12] MEDS: ARIPiprazole 5 MG TABLET PO SCH (22:37)
[2021-10-12] MEDS: LITHIUM CARBONATE 150 MG CAPSULE PO SCH (22:38)
[2021-10-12] MEDS: METOPROLOL TARTRATE 25 MG TABLET (FP) PO SCH (22:38)
[2021-10-12] MEDS: GABAPENTIN 400 MG CAPSULE PO SCH (23:49)
[2021-10-13] MEDS: VANCOMYCIN 250 MG/5 ML ORAL SOLUTION PO SCH ×4 (01:25→17:18)
[2021-10-13] MEDS: INSULIN SLIDING SCALE (NOVOLOG) 1 VIAL SQ SCH ×4 (06:31→22:33)
[2021-10-13 08:19] LABS: INR 1.16 (0.83-1.09); PROTHROMBIN TIME (PATIENT) 13.4 SEC (9.7-13.0)
[2021-10-13 08:22] LABS: CALCIUM 8.8 mg/dL (8.5-10.1)
[2021-10-13 08:23] LABS: ALBUMIN 3.4 g/dl (3.4-5.0); BLOOD UREA NITROGEN 13.9 mg/dL (7-18); MAGNESIUM 2.2 mg/dL (1.8-2.4)
[2021-10-13 08:25] LABS: CREATININE 0.6 mg/dL (0.55-1.3)
[2021-10-13 08:27] LABS: BILIRUBIN,TOTAL 0.7 mg/dL (0.2-1); TOT PROT 6.9 g/dl (6.4-8.2)
[2021-10-13 08:58] LABS: BASO % 0.5 % (0-2.0); HEMATOCRIT 38.2 % (32.4-45.2); HEMOGLOBIN 12.6 GM/dL (10.7-15.3); LYMPH % 24.4 % (8-40); MCH 26.6 pg (25.7-33.7); MEAN CELL VOLUME 80.5 fl (80-96); MEAN PLT VOLUME 10.4 fl (7.5-11.1); MONO % 8.2 % (3.8-10.2); NEUT % 63.9 % (42.8-82.8); RBC 4.75 M/mm3 (3.60-5.2); RDW 16.5 % (11.6-15.6); WHITE BLOOD COUNT 5.8 K/mm3 (4.0-10.0)
[2021-10-13 09:24] LABS: PLATELET COUNT 24 10^3/uL (134-434)
[2021-10-13] MEDS: METOPROLOL TARTRATE 25 MG TABLET (FP) PO SCH ×2 (09:50→22:31)
[2021-10-13] MEDS: GABAPENTIN 400 MG CAPSULE PO SCH ×2 (09:50→22:32)
[2021-10-13] MEDS: lamoTRIgine 100 MG TABLET PO SCH (09:51)
[2021-10-13] MEDS: LURASIDONE HCL 40 MG TABLET PO SCH (09:51)
[2021-10-13] MEDS: ERTAPENEM SODIUM 1 GM in SODIUM CHLORIDE 50 ML IVPB SCH (09:51)
[2021-10-13 15:22] VITALS: BMI 31.3
[2021-10-13] MEDS ORDERED: cefTRIAXone SODIUM 1 GM VIAL ONE (19:18)
[2021-10-13] MEDS ORDERED: DEXTROSE 5%-WATER - 50 ML IVPB ONE (19:19)
[2021-10-13] MEDS: CEFTRIAXONE 1 GM in DEXTROSE 5%-WATER - 50 ML IVPB SCH (19:20)
[2021-10-13] MEDS: POTASSIUM CHLORIDE TABS 20 MEQ TABLET.ER (FP) PO SCH (22:31)
[2021-10-13] MEDS: ARIPiprazole 5 MG TABLET PO SCH (22:32)
[2021-10-13] MEDS: LITHIUM CARBONATE 150 MG CAPSULE PO SCH (22:32)
[2021-10-14] MEDS: VANCOMYCIN 250 MG/5 ML ORAL SOLUTION PO SCH ×4 (00:04→17:04)
[2021-10-14] MEDS: INSULIN SLIDING SCALE (NOVOLOG) 1 VIAL SQ SCH ×4 (06:26→21:02)
[2021-10-14 07:25] LABS: BLOOD UREA NITROGEN 23.9 mg/dL (7-18)
[2021-10-14 07:26] LABS: ALBUMIN 3.3 g/dl (3.4-5.0); CALCIUM 8.5 mg/dL (8.5-10.1); CREATININE 0.9 mg/dL (0.55-1.3); MAGNESIUM 2.3 mg/dL (1.8-2.4)
[2021-10-14 07:27] LABS: TOT PROT 6.8 g/dl (6.4-8.2)
[2021-10-14 07:33] LABS: BILIRUBIN,TOTAL 1.5 mg/dL (0.2-1)
[2021-10-14 07:41] LABS: BASO % 0.6 % (0-2.0); EOS % 3.9 % (0-4.5); HEMATOCRIT 37.2 % (32.4-45.2); HEMOGLOBIN 12.3 GM/dL (10.7-15.3); LYMPH % 30.5 % (8-40); MCH 26.9 pg (25.7-33.7); MCHC 33.2 g/dl (32.0-36.0); MEAN PLT VOLUME 12.5 fl (7.5-11.1); MONO % 7.3 % (3.8-10.2); NEUT % 57.7 % (42.8-82.8); PLATELET COUNT 46 10^3/uL (134-434); RBC 4.59 M/mm3 (3.60-5.2); RDW 16.4 % (11.6-15.6); WHITE BLOOD COUNT 7.5 K/mm3 (4.0-10.0)
[2021-10-14] MEDS ORDERED: POTASSIUM CHLORIDE TABS 20 MEQ TABLET.ER (FP) PO ONE ×2 (08:02→10:22)
[2021-10-14] MEDS: MEROPENEM 1 GM in DEXTROSE 5%-WATER 100 ML IVPB SCH (08:47)
[2021-10-14] MEDS: VANCOMYCIN/WATER FOR INJ (PEG) 1,000 MG/200 ML BAG IVPB SCH (08:47)
[2021-10-14] MEDS ORDERED: DEXTROSE 5%-WATER - 50 ML IVPB ONE (09:22)
[2021-10-14] MEDS ORDERED: cefTRIAXone SODIUM 1 GM VIAL ONE (09:22)
[2021-10-14] MEDS: POTASSIUM CHLORIDE TABS 20 MEQ TABLET.ER (FP) PO SCH ×2 (09:31→21:01)
[2021-10-14] MEDS: LURASIDONE HCL 40 MG TABLET PO SCH (09:32)
[2021-10-14] MEDS: METOPROLOL TARTRATE 25 MG TABLET (FP) PO SCH ×2 (09:33→21:01)
[2021-10-14] MEDS: GABAPENTIN 400 MG CAPSULE PO SCH ×2 (09:33→21:01)
[2021-10-14] MEDS: CEFTRIAXONE 1 GM in DEXTROSE 5%-WATER - 50 ML IVPB SCH (09:33)
[2021-10-14] MEDS ORDERED: MAGNESIUM SULF 50% (8.12 MEQ/2 ML-1 GM VIAL) IVPB ONE (10:22)
[2021-10-14] MEDS: lamoTRIgine 100 MG TABLET PO SCH (10:52)
[2021-10-14] MEDS ORDERED: INSULIN (NOVOLOG) ASPART 100 UNITS/ML 10ML VIAL ONE (11:32)
[2021-10-14] MEDS: clonazePAM 0.25 MG ODT TABLETS SL PRN (20:55)
[2021-10-14] MEDS: LITHIUM CARBONATE 150 MG CAPSULE PO SCH (21:01)
[2021-10-14] MEDS: TAVALISSE PO SCH (21:01)
[2021-10-14] MEDS: ARIPiprazole 5 MG TABLET PO SCH (21:02)
[2021-10-15] MEDS: VANCOMYCIN 250 MG/5 ML ORAL SOLUTION PO SCH ×4 (00:14→18:57)
[2021-10-15] MEDS: INSULIN SLIDING SCALE (NOVOLOG) 1 VIAL SQ SCH ×2 (06:44→11:36)
[2021-10-15 10:08] LABS: BASO % 0.6 % (0-2.0); EOS % 3.9 % (0-4.5); HEMATOCRIT 36.1 % (32.4-45.2); HEMOGLOBIN 11.8 GM/dL (10.7-15.3); LYMPH % 28.4 % (8-40); MCH 26.9 pg (25.7-33.7); MCHC 32.7 g/dl (32.0-36.0); MEAN CELL VOLUME 82.2 fl (80-96); MONO % 8.5 % (3.8-10.2); NEUT % 58.6 % (42.8-82.8); PLATELET COUNT 72 10^3/uL (134-434); RBC 4.38 M/mm3 (3.60-5.2); RDW 16.7 % (11.6-15.6); WHITE BLOOD COUNT 8.2 K/mm3 (4.0-10.0)
[2021-10-15 10:53] LABS: ALBUMIN 3.3 g/dl (3.4-5.0)
[2021-10-15 10:54] LABS: BLOOD UREA NITROGEN 24.2 mg/dL (7-18); CALCIUM 8.5 mg/dL (8.5-10.1); MAGNESIUM 2.5 mg/dL (1.8-2.4)
[2021-10-15] MEDS ORDERED: cefTRIAXone SODIUM 1 GM VIAL ONE (10:55)
[2021-10-15] MEDS ORDERED: DEXTROSE 5%-WATER - 50 ML IVPB ONE (10:55)
[2021-10-15 10:57] LABS: CREATININE 0.8 mg/dL (0.55-1.3)
[2021-10-15 10:59] LABS: BILIRUBIN,TOTAL 0.2 mg/dL (0.2-1); TOT PROT 6.7 g/dl (6.4-8.2)
[2021-10-15] MEDS: CEFTRIAXONE 1 GM in DEXTROSE 5%-WATER - 50 ML IVPB SCH (11:00)
[2021-10-15] MEDS: POTASSIUM CHLORIDE TABS 20 MEQ TABLET.ER (FP) PO SCH ×2 (11:01→21:44)
[2021-10-15] MEDS: lamoTRIgine 100 MG TABLET PO SCH (11:01)
[2021-10-15] MEDS: GABAPENTIN 400 MG CAPSULE PO SCH ×2 (11:01→21:44)
[2021-10-15] MEDS: METOPROLOL TARTRATE 25 MG TABLET (FP) PO SCH ×2 (11:02→21:44)
[2021-10-15] MEDS: LURASIDONE HCL 40 MG TABLET PO SCH (11:02)
[2021-10-15] MEDS: TAVALISSE PO SCH ×2 (11:03→21:45)
[2021-10-15 11:07] LABS: PLATELET ESTIMATE DECREASED
[2021-10-15] MEDS: clonazePAM 0.25 MG ODT TABLETS SL PRN (12:52)
[2021-10-15 16:58] LABS: METHADONE, UR NEGATIVE (NEGATIVE); OPIATES, URI NEGATIVE (NEGATIVE); URINE AMPHETAMINES NEGATIVE (NEGATIVE); URINE BENZODIAZEPINES NEGATIVE (NEGATIVE)
[2021-10-15 16:59] LABS: PHENCYCLIDINE,URINE NEGATIVE (NEGATIVE)
[2021-10-15 17:03] LABS: COCAINE, UR NEGATIVE (NEGATIVE); URINE BARBITURATES NEGATIVE (NEGATIVE)
[2021-10-15] MEDS: ARIPiprazole 5 MG TABLET PO SCH (21:44)
[2021-10-15] MEDS: LITHIUM CARBONATE 150 MG CAPSULE PO SCH (21:45)
[2021-10-16] MEDS: VANCOMYCIN 250 MG/5 ML ORAL SOLUTION PO SCH ×5 (00:02→23:42)
[2021-10-16] MEDS ORDERED: POTASSIUM CHLORIDE TABS 20 MEQ TABLET.ER (FP) PO SCH (08:30)
[2021-10-16 09:19] LABS: BASO % 0.7 % (0-2.0); EOS % 4.4 % (0-4.5); HEMATOCRIT 37.4 % (32.4-45.2); LYMPH % 32.4 % (8-40); MCH 26.5 pg (25.7-33.7); MEAN CELL VOLUME 82.9 fl (80-96); MEAN PLT VOLUME 11.5 fl (7.5-11.1); MONO % 6.6 % (3.8-10.2); NEUT % 55.9 % (42.8-82.8); PLATELET COUNT 128 10^3/uL (134-434); RBC 4.52 M/mm3 (3.60-5.2); RDW 16.6 % (11.6-15.6); WHITE BLOOD COUNT 8.5 K/mm3 (4.0-10.0)
[2021-10-16 09:40] LABS: CALCIUM 8.5 mg/dL (8.5-10.1)
[2021-10-16 09:41] LABS: ALBUMIN 3.2 g/dl (3.4-5.0); BLOOD UREA NITROGEN 20.1 mg/dL (7-18); MAGNESIUM 2.5 mg/dL (1.8-2.4)
[2021-10-16 09:43] LABS: CREATININE 0.8 mg/dL (0.55-1.3)
[2021-10-16 09:45] LABS: BILIRUBIN,TOTAL 0.2 mg/dL (0.2-1); TOT PROT 6.8 g/dl (6.4-8.2)
[2021-10-16] MEDS ORDERED: cefTRIAXone SODIUM 1 GM VIAL ONE (09:46)
[2021-10-16] MEDS ORDERED: DEXTROSE 5%-WATER - 50 ML IVPB ONE (09:46)
[2021-10-16] MEDS ORDERED: buPROPion HCL 100 MG TABLET PO SCH (10:00)
[2021-10-16] MEDS: lamoTRIgine 100 MG TABLET PO SCH (10:03)
[2021-10-16] MEDS: LURASIDONE HCL 40 MG TABLET PO SCH (10:03)
[2021-10-16] MEDS: GABAPENTIN 400 MG CAPSULE PO SCH ×2 (10:04→22:38)
[2021-10-16] MEDS: METOPROLOL TARTRATE 25 MG TABLET (FP) PO SCH ×2 (10:04→22:38)
[2021-10-16] MEDS: amLODIPine BESYLATE 10 MG TABLET (FP) PO SCH (10:04)
[2021-10-16] MEDS: CEFTRIAXONE 1 GM in DEXTROSE 5%-WATER - 50 ML IVPB SCH (10:05)
[2021-10-16] MEDS: TAVALISSE PO SCH ×2 (10:06→22:39)
[2021-10-16] MEDS: BENZTROPINE MESYLATE 1 MG TABLET PO SCH ×2 (10:06→22:38)
[2021-10-16] MEDS: ARIPiprazole 5 MG TABLET PO SCH (22:37)
[2021-10-16] MEDS: LITHIUM CARBONATE 150 MG CAPSULE PO SCH (22:39)
[2021-10-17] MEDS: VANCOMYCIN 250 MG/5 ML ORAL SOLUTION PO SCH ×3 (06:18→17:35)
[2021-10-17 07:06] LABS: BASO % 0.8 % (0-2.0); EOS % 4.8 % (0-4.5); HEMATOCRIT 35.9 % (32.4-45.2); HEMOGLOBIN 11.5 GM/dL (10.7-15.3); LYMPH % 37.8 % (8-40); MCH 26.3 pg (25.7-33.7); MCHC 31.9 g/dl (32.0-36.0); MEAN CELL VOLUME 82.3 fl (80-96); MEAN PLT VOLUME 11.5 fl (7.5-11.1); MONO % 8.1 % (3.8-10.2); NEUT % 48.5 % (42.8-82.8); PLATELET COUNT 151 10^3/uL (134-434); RBC 4.36 M/mm3 (3.60-5.2); RDW 16.8 % (11.6-15.6); WHITE BLOOD COUNT 9.2 K/mm3 (4.0-10.0)
[2021-10-17 07:47] LABS: BILIRUBIN,TOTAL 0.2 mg/dL (0.2-1)
[2021-10-17 07:49] LABS: ALBUMIN 3.1 g/dl (3.4-5.0); CALCIUM 8.4 mg/dL (8.5-10.1); MAGNESIUM 2.5 mg/dL (1.8-2.4); TOT PROT 6.4 g/dl (6.4-8.2)
[2021-10-17 07:52] LABS: CREATININE 0.6 mg/dL (0.55-1.3)
[2021-10-17] MEDS ORDERED: cefTRIAXone SODIUM 1 GM VIAL ONE (09:29)
[2021-10-17] MEDS ORDERED: DEXTROSE 5%-WATER - 50 ML IVPB ONE (09:29)
[2021-10-17] MEDS: CEFTRIAXONE 1 GM in DEXTROSE 5%-WATER - 50 ML IVPB SCH (09:49)
[2021-10-17] MEDS: GABAPENTIN 400 MG CAPSULE PO SCH ×2 (09:50→21:17)
[2021-10-17] MEDS: TAVALISSE PO SCH ×2 (09:50→21:18)
[2021-10-17] MEDS: METOPROLOL TARTRATE 25 MG TABLET (FP) PO SCH ×2 (09:51→21:17)
[2021-10-17] MEDS: amLODIPine BESYLATE 10 MG TABLET (FP) PO SCH (09:51)
[2021-10-17] MEDS: lamoTRIgine 100 MG TABLET PO SCH (09:52)
[2021-10-17] MEDS: BENZTROPINE MESYLATE 1 MG TABLET PO SCH ×2 (09:53→21:18)
[2021-10-17] MEDS: LURASIDONE HCL 40 MG TABLET PO SCH (09:53)
[2021-10-17] MEDS ORDERED: clonazePAM 0.5 MG TABLET PO ONE (13:57)
[2021-10-17] MEDS ORDERED: TAMSULOSIN HCL 0.4 MG CAP PO ONE (15:25)
[2021-10-17] MEDS ORDERED: clonazePAM 2 MG TABLET PO PRN (17:52)
[2021-10-17] MEDS ORDERED: LORazepam 2 MG/ML SDV VIAL IVPUSH ONE (17:55)
[2021-10-17] MEDS: clonazePAM 0.5 MG TABLET PO PRN (20:10)
[2021-10-17] MEDS: LITHIUM CARBONATE 150 MG CAPSULE PO SCH (21:18)
[2021-10-17] MEDS: ARIPiprazole 5 MG TABLET PO SCH (21:19)
[2021-10-18] MEDS: VANCOMYCIN 250 MG/5 ML ORAL SOLUTION PO SCH ×3 (00:21→12:22)
[2021-10-18] MEDS ORDERED: TAMSULOSIN HCL 0.4 MG CAP PO SCH (08:30)
[2021-10-18] MEDS: METOPROLOL TARTRATE 25 MG TABLET (FP) PO SCH (09:41)
[2021-10-18] MEDS: clonazePAM 0.5 MG TABLET PO PRN (09:42)
[2021-10-18] MEDS: GABAPENTIN 400 MG CAPSULE PO SCH (09:42)
[2021-10-18] MEDS: amLODIPine BESYLATE 10 MG TABLET (FP) PO SCH (09:43)
[2021-10-18] MEDS: BENZTROPINE MESYLATE 1 MG TABLET PO SCH (09:43)
[2021-10-18] MEDS: lamoTRIgine 100 MG TABLET PO SCH (09:44)
[2021-10-18] MEDS: LURASIDONE HCL 40 MG TABLET PO SCH (09:45)
[2021-10-18] MEDS: TAVALISSE PO SCH (09:45)
[2021-10-18 09:51] LABS: BASO % 0.7 % (0-2.0); EOS % 4.5 % (0-4.5); HEMATOCRIT 34.3 % (32.4-45.2); HEMOGLOBIN 11.4 GM/dL (10.7-15.3); LYMPH % 31.8 % (8-40); MCH 27.4 pg (25.7-33.7); MCHC 33.3 g/dl (32.0-36.0); MEAN CELL VOLUME 82.3 fl (80-96); MEAN PLT VOLUME 10.9 fl (7.5-11.1); MONO % 5.9 % (3.8-10.2); NEUT % 57.1 % (42.8-82.8); PLATELET COUNT 168 10^3/uL (134-434); RBC 4.17 M/mm3 (3.60-5.2); RDW 17.2 % (11.6-15.6)
[2021-10-18 10:16] LABS: CALCIUM 8.7 mg/dL (8.5-10.1); MAGNESIUM 2.4 mg/dL (1.8-2.4)
[2021-10-18 10:19] LABS: CREATININE 0.8 mg/dL (0.55-1.3)
[2021-10-18 10:20] LABS: BILIRUBIN,TOTAL 0.6 mg/dL (0.2-1); TOT PROT 6.5 g/dl (6.4-8.2)
[2021-10-18 14:24] VITALS: BP 116/83; PULSE 72; TEMP 97.7
== END 2021-10-18 15:21 | disposition home or self-care (01) | DRG 248 ==
LOC: JER 10:55 → JERBED 14:35 → J6S 23:20
PROVIDERS: ADMIT Internal Medicine; ATTEND Nurse Practitioner Acute Care
PROC: 30233R1 Transfusion of Nonautologous Platelets into Peripheral Vein, Percutaneous Approach (ICD-10-PCS; principal; 2021-10-12)
DX: A04.72 Enterocolitis due to Clostridium difficile, not specified as recurrent (principal); D69.3 Immune thrombocytopenic purpura; G93.41 Metabolic encephalopathy; R45.851 Suicidal ideations; M32.9 Systemic lupus erythematosus, unspecified; E11.9 Type 2 diabetes mellitus without complications; E78.5 Hyperlipidemia, unspecified; F17.210 Nicotine dependence, cigarettes, uncomplicated; F31.89 Other bipolar disorder; G40.909 Epilepsy, unspecified, not intractable, without status epilepticus; I10 Essential (primary) hypertension; I25.10 Atherosclerotic heart disease of native coronary artery without angina pectoris; J45.909 Unspecified asthma, uncomplicated; K43.9 Ventral hernia without obstruction or gangrene; N39.0 Urinary tract infection, site not specified; N76.5 Ulceration of vagina; N81.10 Cystocele, unspecified; R10.30 Lower abdominal pain, unspecified; R41.82 Altered mental status, unspecified; R53.1 Weakness; Z79.4 Long term (current) use of insulin; Z96.653 Presence of artificial knee joint, bilateral; K21.9 Gastro-esophageal reflux disease without esophagitis; K40.90 Unilateral inguinal hernia, without obstruction or gangrene, not specified as recurrent; B96.20 Unspecified Escherichia coli [E. coli] as the cause of diseases classified elsewhere
CPT/HCPCS: 36415; 36430; 70450-TC; 71045-TC-FY; 74176-TC; 80048; 80053; 80178; 80307; 81003; 82962; 83010; 83605; 83615; 83735; 84100; 84484; 84703; 85025; 85027; 85045; 85384; 85610; 86850; 86870; 86900; 86901; 86902; 87040; 87070; 87086; 87186; 87205; 87324; 87449; 93005; 93010; 97116-GP; 97161-GP; 99285-25; C9803-CS; P9034; U0003; U0005

== ENCOUNTER 2021-11-30 16:24 | Emergency (ER) | payer OTHER ==
[2021-11-30 16:40] VITALS: BP 158/81; PULSE 102; TEMP 99.6; BMI 73.4
[2021-11-30] MEDS ORDERED: SODIUM CHLORIDE 0.9% 500 ML INFUS.BAG IV ONE (18:00)
[2021-11-30] MEDS ORDERED: methylPREDNISolone NA SUCC 125 MG/2 ML VIAL IVPB ONE (18:00)
[2021-11-30] MEDS ORDERED: methylPREDNISolone NA SUCC 125 MG/2 ML VIAL ONE (18:10)
== END 2021-11-30 21:10 | disposition home or self-care (01) ==
LOC: JER 16:24
PROC: 3E033GC Introduction of Other Therapeutic Substance into Peripheral Vein, Percutaneous Approach (ICD-10-PCS; principal; 2021-11-30)
PROC: 3E033GC Introduction of Other Therapeutic Substance into Peripheral Vein, Percutaneous Approach (ICD-10-PCS; 2021-11-30)
DX: T78.40XA Allergy, unspecified, initial encounter (principal)
CPT/HCPCS: 99284-25

== ENCOUNTER 2021-12-29 09:06 | Observation (INO) | payer OTHER ==
[2021-12-29 10:22] LABS: BASO % 0.6 % (0-2.0); EOS % 1.3 % (0-4.5); HEMATOCRIT 38.2 % (32.4-45.2); HEMOGLOBIN 12.6 GM/dL (10.7-15.3); LYMPH % 18.5 % (8-40); MEAN CELL VOLUME 78.7 fl (80-96); MEAN PLT VOLUME 9.3 fl (7.5-11.1); MONO % 5.5 % (3.8-10.2); NEUT % 74.1 % (42.8-82.8); PLATELET COUNT 182 10^3/uL (134-434); RBC 4.85 M/mm3 (3.60-5.2); RDW 19.3 % (11.6-15.6); WHITE BLOOD COUNT 7.7 K/mm3 (4.0-10.0)
[2021-12-29 10:43] LABS: CHLORIDE 107 mmol/L (98-107); SODIUM 138 mmol/L (136-145)
[2021-12-29 10:49] LABS: ALBUMIN 3.7 g/dl (3.4-5.0); ANION GAP 9 MMOL/L (8-16); BLOOD UREA NITROGEN 14.9 mg/dL (7-18); CALCIUM 9.1 mg/dL (8.5-10.1); CO2 23 mmol/L (21-32); GLUCOSE,RANDOM 121 mg/dL (74-106)
[2021-12-29 10:52] LABS: CREATININE 0.5 mg/dL (0.55-1.3); SGOT/AST 28 U/L (15-37); SGPT/ALT 21 U/L (13-61)
[2021-12-29 10:54] LABS: BILIRUBIN,TOTAL 0.7 mg/dL (0.2-1); TOT PROT 7.7 g/dl (6.4-8.2)
[2021-12-29 10:55] LABS: ALK PHOS 109 U/L (45-117)
[2021-12-29] MEDS ORDERED: SODIUM CHLORIDE 0.9% 500 ML INFUS.BAG IV ONE (12:02)
[2021-12-29 13:49] LABS: EPI CELLS 24 /uL (0-25.1); HYALINE CASTS 6 /uL (0-3.1); URINE APPEARANCE CLEAR; URINE BACTERIA 225 /uL (0-1359); URINE BILIRUBIN NEGATIVE (NEGATIVE); URINE COLOR YELLOW; URINE GLUCOSE (UA) NEGATIVE (NEGATIVE); URINE KETONE 2+ (NEGATIVE); URINE LEUK ESTERASE TRACE (NEGATIVE); URINE NITRITE NEGATIVE (NEGATIVE); URINE PROTEIN 1+ (NEGATIVE); URINE RBC 87 /uL (0-23.9); URINE UROBILINOGEN 0.2 mg/dL (0.2-1.0); URINE WBC 54 /uL (0-25.8)
[2021-12-29] MEDS ORDERED: CEFTRIAXONE 1,000 MG in DEXTROSE 5%-WATER - 50 ML IVPB ONE (14:03)
[2021-12-29] MEDS ORDERED: CEFTRIAXONE 1 GM/50 ML BAG ONE (14:32)
[2021-12-29] MEDS: ARIPiprazole 5 MG TABLET PO SCH (21:40)
[2021-12-29] MEDS ORDERED: ARIPiprazole 5 MG TABLET ONE (21:48)
[2021-12-30] MEDS ORDERED: amLODIPine BESYLATE 10 MG TABLET (FP) ONE (10:08)
[2021-12-30] MEDS ORDERED: CEFTRIAXONE 1 GM/50 ML BAG ONE (10:08)
[2021-12-30] MEDS ORDERED: buPROPion HCL 100 MG TABLET ONE (10:08)
[2021-12-30] MEDS: CEFTRIAXONE 1 GM in DEXTROSE 5%-WATER - 50 ML IVPB SCH (10:14)
[2021-12-30] MEDS: amLODIPine BESYLATE 10 MG TABLET (FP) PO SCH (10:14)
[2021-12-30] MEDS: buPROPion HCL 100 MG TABLET PO SCH (10:14)
[2021-12-30] MEDS: BENZTROPINE MESYLATE 1 MG TABLET PO SCH ×2 (12:13→22:25)
[2021-12-30] MEDS: LURASIDONE HCL 40 MG TABLET PO SCH (12:13)
[2021-12-30] MEDS: ARIPiprazole 5 MG TABLET PO SCH (22:25)
[2021-12-30] MEDS: INSULIN SLIDING SCALE (NOVOLOG) 1 VIAL SQ SCH (22:27)
[2021-12-31] MEDS: INSULIN SLIDING SCALE (NOVOLOG) 1 VIAL SQ SCH ×4 (06:04→21:31)
[2021-12-31 06:36] VITALS: BMI 28.8
[2021-12-31] MEDS: LURASIDONE HCL 40 MG TABLET PO SCH (08:00)
[2021-12-31 09:08] LABS: BASO % 0.4 % (0-2.0); EOS % 1.5 % (0-4.5); HEMOGLOBIN 12.7 GM/dL (10.7-15.3); LYMPH % 19.9 % (8-40); MCH 25.8 pg (25.7-33.7); MCHC 32.6 g/dl (32.0-36.0); MEAN PLT VOLUME 9.4 fl (7.5-11.1); MONO % 7.6 % (3.8-10.2); NEUT % 70.6 % (42.8-82.8); PLATELET COUNT 129 10^3/uL (134-434); RBC 4.94 M/mm3 (3.60-5.2); RDW 19.2 % (11.6-15.6)
[2021-12-31] MEDS ORDERED: cefTRIAXone SODIUM 1 GM VIAL ONE (09:22)
[2021-12-31] MEDS ORDERED: DEXTROSE 5%-WATER - 50 ML IVPB ONE (09:23)
[2021-12-31 09:27] LABS: BLOOD UREA NITROGEN 22.6 mg/dL (7-18); CALCIUM 9.4 mg/dL (8.5-10.1)
[2021-12-31 09:28] LABS: MAGNESIUM 2.4 mg/dL (1.8-2.4)
[2021-12-31] MEDS: CEFTRIAXONE 1 GM in DEXTROSE 5%-WATER - 50 ML IVPB SCH (09:29)
[2021-12-31 09:30] LABS: CREATININE 0.7 mg/dL (0.55-1.3)
[2021-12-31] MEDS: amLODIPine BESYLATE 10 MG TABLET (FP) PO SCH (09:30)
[2021-12-31] MEDS: LOSARTAN POTASSIUM 50 MG TABLET PO SCH (09:30)
[2021-12-31] MEDS: BENZTROPINE MESYLATE 1 MG TABLET PO SCH ×2 (09:30→21:27)
[2021-12-31 09:31] LABS: BILIRUBIN,TOTAL 0.6 mg/dL (0.2-1)
[2021-12-31] MEDS ORDERED: CANDESARTAN CILEXETIL PO SCH (10:00)
[2021-12-31] MEDS ORDERED: lamoTRIgine 100 MG TABLET PO SCH ×2 (10:30→12:15)
[2021-12-31] MEDS: buPROPion HCL 100 MG TABLET PO SCH (11:17)
[2021-12-31] MEDS ORDERED: MELATONIN 5 MG TABLETS PO PRN (13:30)
[2021-12-31] MEDS: GABAPENTIN 400 MG CAPSULE PO SCH ×2 (14:41→21:27)
[2021-12-31] MEDS: lamoTRIgine 100 MG TABLET PO SCH ×2 (14:46→16:58)
[2021-12-31] MEDS: [UNRECOGNIZED DRUG - OTHER] PO SCH (15:41)
[2021-12-31] MEDS: ARIPiprazole 5 MG TABLET PO SCH (21:26)
[2022-01-01] MEDS ORDERED: ACETAMINOPHEN 1000 MG/100 ML BAG IVPB ONE (04:36)
[2022-01-01] MEDS: INSULIN SLIDING SCALE (NOVOLOG) 1 VIAL SQ SCH ×2 (06:12→11:48)
[2022-01-01] MEDS: LURASIDONE HCL 40 MG TABLET PO SCH (08:27)
[2022-01-01 09:10] VITALS: BP 136/66; PULSE 72; TEMP 97.8
[2022-01-01] MEDS ORDERED: cefTRIAXone SODIUM 1 GM VIAL ONE (10:05)
[2022-01-01] MEDS ORDERED: DEXTROSE 5%-WATER - 50 ML IVPB ONE (10:06)
[2022-01-01] MEDS: LOSARTAN POTASSIUM 50 MG TABLET PO SCH (10:09)
[2022-01-01] MEDS: amLODIPine BESYLATE 10 MG TABLET (FP) PO SCH (10:10)
[2022-01-01] MEDS: GABAPENTIN 400 MG CAPSULE PO SCH (10:10)
[2022-01-01] MEDS: CEFTRIAXONE 1 GM in DEXTROSE 5%-WATER - 50 ML IVPB SCH ×2 (10:11→11:25)
[2022-01-01] MEDS: BENZTROPINE MESYLATE 1 MG TABLET PO SCH (10:19)
[2022-01-01] MEDS: buPROPion HCL 100 MG TABLET PO SCH (10:19)
[2022-01-01] MEDS: lamoTRIgine 100 MG TABLET PO SCH (11:43)
[2022-01-01 11:58] LABS: BASO % 0.5 % (0-2.0); EOS % 2.9 % (0-4.5); HEMATOCRIT 38.8 % (32.4-45.2); HEMOGLOBIN 12.6 GM/dL (10.7-15.3); LYMPH % 23.3 % (8-40); MCH 25.8 pg (25.7-33.7); MCHC 32.5 g/dl (32.0-36.0); MEAN CELL VOLUME 79.5 fl (80-96); MEAN PLT VOLUME 9.6 fl (7.5-11.1); MONO % 10.4 % (3.8-10.2); NEUT % 62.9 % (42.8-82.8); PLATELET COUNT 101 10^3/uL (134-434); RBC 4.88 M/mm3 (3.60-5.2); RDW 18.9 % (11.6-15.6); WHITE BLOOD COUNT 9.1 K/mm3 (4.0-10.0)
[2022-01-01 12:28] LABS: CALCIUM 9.5 mg/dL (8.5-10.1); MAGNESIUM 2.8 mg/dL (1.8-2.4)
[2022-01-01 12:31] LABS: CREATININE 1.4 mg/dL (0.55-1.3)
[2022-01-01 12:33] LABS: BILIRUBIN,TOTAL 0.4 mg/dL (0.2-1)
[2022-01-01] MEDS ORDERED: CEFUROXIME AXETIL 500 MG TABLET PO ONE (12:45)
== END 2022-01-01 14:43 | disposition home health service (06) ==
LOC: JER 09:06 → JERBED 14:09 → INTOOBSV 14:09 → UNDOADMOB 14:09 → JERBED 14:56 → J8W 12-30 21:04
PROVIDERS: ADMIT Internal Medicine; ATTEND Nurse Practitioner Family
PROC: 3E033NZ Introduction of Analgesics, Hypnotics, Sedatives into Peripheral Vein, Percutaneous Approach (ICD-10-PCS; principal; 2021-12-29)
PROC: 3E03329 Introduction of Other Anti-infective into Peripheral Vein, Percutaneous Approach (ICD-10-PCS; 2021-12-29)
PROC: 3E0337Z Introduction of Electrolytic and Water Balance Substance into Peripheral Vein, Percutaneous Approach (ICD-10-PCS; 2021-12-29)
DX: N39.0 Urinary tract infection, site not specified (principal); R41.82 Altered mental status, unspecified; G93.41 Metabolic encephalopathy; R56.9 Unspecified convulsions; D69.3 Immune thrombocytopenic purpura; M32.9 Systemic lupus erythematosus, unspecified; F31.9 Bipolar disorder, unspecified; E11.9 Type 2 diabetes mellitus without complications; I10 Essential (primary) hypertension; Z29.8 Encounter for other specified prophylactic measures; Z88.8 Allergy status to other drugs, medicaments and biological substances; Z88.6 Allergy status to analgesic agent; Z91.041 Radiographic dye allergy status
CPT/HCPCS: 36415; 70450-TC; 71045-TC-FY; 74176-TC; 80053; 80175; 80178; 80307; 81003; 82962; 83036; 83735; 84484; 85025; 87040; 87086; 87186; 93005; 93010; 95816; 96365; 96375; 97116-GP; 97161-GP; 99285-25; C9803-CS; G0378; U0003; U0005

== ENCOUNTER 2022-01-22 09:03 | Inpatient (IN) | payer OTHER ==
[2022-01-22 11:17] LABS: EOS % 1.3 % (0-4.5); HEMOGLOBIN 12.5 GM/dL (10.7-15.3); LYMPH % 19.7 % (8-40); MCH 25.8 pg (25.7-33.7); MCHC 32.9 g/dl (32.0-36.0); MEAN CELL VOLUME 78.3 fl (80-96); MEAN PLT VOLUME 9.8 fl (7.5-11.1); MONO % 4.3 % (3.8-10.2); NEUT % 73.7 % (42.8-82.8); PLATELET COUNT 177 10^3/uL (134-434); RBC 4.85 M/mm3 (3.60-5.2); RDW 19.3 % (11.6-15.6); WHITE BLOOD COUNT 8.5 K/mm3 (4.0-10.0)
[2022-01-22 11:21] LABS: EPI CELLS >36 /uL (0-25.1); HYALINE CASTS 1 /uL (0-3.1); URINE APPEARANCE CLEAR; URINE BACTERIA >9,000 /uL (0-1359); URINE BILIRUBIN NEGATIVE (NEGATIVE); URINE COLOR YELLOW; URINE GLUCOSE (UA) NEGATIVE (NEGATIVE); URINE KETONE TRACE (NEGATIVE); URINE LEUK ESTERASE 1+ (NEGATIVE); URINE NITRITE NEGATIVE (NEGATIVE); URINE PROTEIN TRACE (NEGATIVE); URINE RBC 30 /uL (0-23.9); URINE WBC 20 /uL (0-25.8)
[2022-01-22] MEDS ORDERED: SODIUM CHLORIDE 0.9% 500 ML INFUS.BAG IV ONE (11:43)
[2022-01-22] MEDS ORDERED: CEFTRIAXONE 1 GM in DEXTROSE 5%-WATER - 50 ML IVPB ONE (11:45)
[2022-01-22] MEDS ORDERED: CEFTRIAXONE 1 GM/50 ML BAG ONE (12:02)
[2022-01-22 12:13] LABS: ALBUMIN 3.6 g/dl (3.4-5.0); BLOOD UREA NITROGEN 12.4 mg/dL (7-18); CALCIUM 9.7 mg/dL (8.5-10.1)
[2022-01-22 12:16] LABS: CREATININE 0.6 mg/dL (0.55-1.3)
[2022-01-22 12:17] LABS: BILIRUBIN,TOTAL 0.8 mg/dL (0.2-1); TOT PROT 7.8 g/dl (6.4-8.2)
[2022-01-22] MEDS ORDERED: POLYETHYLENE GLYCOL (HEALTHYLAX) 3350 17 GM PACKET PO PRN (13:48)
[2022-01-22] MEDS ORDERED: ACETAMINOPHEN 325 MG TABLET (FP) PO PRN (13:48)
[2022-01-22] MEDS ORDERED: ALBUTEROL SO4 HFA INHALER IH PRN (14:23)
[2022-01-22] MEDS: INSULIN SLIDING SCALE (NOVOLOG) 1 VIAL SQ SCH (23:53)
[2022-01-23 01:44] VITALS: BMI 34.0
[2022-01-23] MEDS: INSULIN SLIDING SCALE (NOVOLOG) 1 VIAL SQ SCH ×4 (07:59→21:42)
[2022-01-23] MEDS ORDERED: cefTRIAXone SODIUM 1 GM VIAL ONE (09:36)
[2022-01-23] MEDS ORDERED: DEXTROSE 5%-WATER - 50 ML IVPB ONE (09:36)
[2022-01-23 09:43] LABS: BASO % 0.5 % (0-2.0); EOS % 1.2 % (0-4.5); HEMATOCRIT 38.4 % (32.4-45.2); HEMOGLOBIN 12.6 GM/dL (10.7-15.3); LYMPH % 16.6 % (8-40); MCH 25.8 pg (25.7-33.7); MCHC 32.9 g/dl (32.0-36.0); MEAN CELL VOLUME 78.4 fl (80-96); MEAN PLT VOLUME 9.7 fl (7.5-11.1); MONO % 5.1 % (3.8-10.2); NEUT % 76.6 % (42.8-82.8); PLATELET COUNT 163 10^3/uL (134-434); RDW 19.3 % (11.6-15.6); WHITE BLOOD COUNT 8.5 K/mm3 (4.0-10.0)
[2022-01-23] MEDS: ENOXAPARIN NA (PORCINE) 40 MG/0.4 ML DISP.SYRIN SQ SCH (09:49)
[2022-01-23] MEDS: CEFTRIAXONE 1 GM in DEXTROSE 5%-WATER - 50 ML IVPB SCH (09:50)
[2022-01-23 10:12] LABS: ALBUMIN 3.8 g/dl (3.4-5.0); BLOOD UREA NITROGEN 12.3 mg/dL (7-18); CALCIUM 9.4 mg/dL (8.5-10.1); MAGNESIUM 2.3 mg/dL (1.8-2.4)
[2022-01-23 10:15] LABS: CREATININE 0.7 mg/dL (0.55-1.3)
[2022-01-23 10:16] LABS: BILIRUBIN,TOTAL 0.8 mg/dL (0.2-1); TOT PROT 7.9 g/dl (6.4-8.2)
[2022-01-23 10:18] LABS: PHOSPHOROUS 3.4 mg/dL (2.5-4.9)
[2022-01-23] MEDS ORDERED: lamoTRIgine 100 MG TABLET PO SCH (14:52)
[2022-01-23] MEDS: LURASIDONE HCL 40 MG TABLET PO SCH (15:46)
[2022-01-23] MEDS: TAMSULOSIN HCL 0.4 MG CAP PO SCH (15:46)
[2022-01-23] MEDS: amLODIPine BESYLATE 10 MG TABLET (FP) PO SCH (15:47)
[2022-01-23] MEDS: FOLIC ACID 1 MG TABLET (FP) PO SCH (15:47)
[2022-01-23] MEDS: buPROPion HCL 100 MG TABLET PO SCH (15:47)
[2022-01-23] MEDS: ARIPiprazole 10 MG TABLET PO SCH (15:47)
[2022-01-23] MEDS ORDERED: POTASSIUM CHLORIDE TABS 20 MEQ TABLET.ER (FP) PO ONE (16:45)
[2022-01-23] MEDS: METOPROLOL TARTRATE 25 MG TABLET (FP) PO SCH (21:37)
[2022-01-23] MEDS: BENZTROPINE MESYLATE 1 MG TABLET PO SCH (21:42)
[2022-01-23] MEDS ORDERED: ALOSETRON HCL 1 MG PO SCH (22:00)
[2022-01-24] MEDS: INSULIN SLIDING SCALE (NOVOLOG) 1 VIAL SQ SCH ×2 (06:03→12:00)
[2022-01-24 06:36] VITALS: RESP 18
[2022-01-24] MEDS ORDERED: cefTRIAXone SODIUM 1 GM VIAL ONE (09:11)
[2022-01-24] MEDS ORDERED: DEXTROSE 5%-WATER - 50 ML IVPB ONE (09:11)
[2022-01-24] MEDS: CEFTRIAXONE 1 GM in DEXTROSE 5%-WATER - 50 ML IVPB SCH (09:33)
[2022-01-24] MEDS: amLODIPine BESYLATE 10 MG TABLET (FP) PO SCH (09:34)
[2022-01-24] MEDS: METOPROLOL TARTRATE 25 MG TABLET (FP) PO SCH (09:34)
[2022-01-24] MEDS: TAMSULOSIN HCL 0.4 MG CAP PO SCH (09:34)
[2022-01-24] MEDS: ENOXAPARIN NA (PORCINE) 40 MG/0.4 ML DISP.SYRIN SQ SCH (09:34)
[2022-01-24] MEDS: LURASIDONE HCL 40 MG TABLET PO SCH (09:35)
[2022-01-24] MEDS: FOLIC ACID 1 MG TABLET (FP) PO SCH (09:35)
[2022-01-24] MEDS: buPROPion HCL 100 MG TABLET PO SCH (09:36)
[2022-01-24] MEDS: BENZTROPINE MESYLATE 1 MG TABLET PO SCH (09:36)
[2022-01-24] MEDS: ARIPiprazole 10 MG TABLET PO SCH (09:36)
[2022-01-24 09:46] VITALS: BP 144/67; PULSE 60; TEMP 98.2
[2022-01-25] MEDS ORDERED: TAMSULOSIN HCL 0.4 MG CAP PO SCH (08:30)
== END 2022-01-24 13:48 | disposition home health service (06) | DRG 463 ==
LOC: JER 09:03 → JERBED 13:09 → J7W 18:46
PROVIDERS: ADMIT Internal Medicine; ATTEND Nurse Practitioner Acute Care
DX: N39.0 Urinary tract infection, site not specified (principal); D69.3 Immune thrombocytopenic purpura; M32.9 Systemic lupus erythematosus, unspecified; E11.9 Type 2 diabetes mellitus without complications; F31.9 Bipolar disorder, unspecified; I10 Essential (primary) hypertension; J45.909 Unspecified asthma, uncomplicated; K21.9 Gastro-esophageal reflux disease without esophagitis
CPT/HCPCS: 36415; 70450-TC; 80053; 81003; 82962; 83036; 83690; 83735; 84100; 85025; 87040; 87086; 87186; 93005; 93010; 99285-25; C9803-CS; U0003; U0005

== ENCOUNTER 2022-03-16 10:19 | Inpatient (IN) | payer OTHER ==
[2022-03-16] MEDS ORDERED: ACETAMINOPHEN 1000 MG/100 ML BAG IVPB ONE (10:46)
[2022-03-16] MEDS ORDERED: ACETAMINOPHEN INJECTION 100 ML IVPB ONE (11:26)
[2022-03-16 11:51] LABS: VENOUS BASE EXCESS 0.2 mmol/L (-2-2); VENOUS PCO2 35.7 mmHg (38-52); VENOUS PH 7.439 (7.310-7.410)
[2022-03-16 11:58] LABS: BASO % 0.7 % (0-2.0); EOS % 0.2 % (0-4.5); HEMATOCRIT 38.5 % (32.4-45.2); HEMOGLOBIN 12.8 GM/dL (10.7-15.3); MCH 27.6 pg (25.7-33.7); MCHC 33.2 g/dl (32.0-36.0); MEAN CELL VOLUME 83.1 fl (80-96); MONO % 6.2 % (3.8-10.2); NEUT % 80.9 % (42.8-82.8); PLATELET COUNT 137 10^3/uL (134-434); RBC 4.64 M/mm3 (3.60-5.2); RDW 20.2 % (11.6-15.6); WHITE BLOOD COUNT 12.6 K/mm3 (4.0-10.0)
[2022-03-16 12:13] LABS: ALBUMIN 3.5 g/dl (3.4-5.0); BLOOD UREA NITROGEN 10.8 mg/dL (7-18)
[2022-03-16 12:17] LABS: CREATININE 0.6 mg/dL (0.55-1.3)
[2022-03-16 12:18] LABS: BILIRUBIN,TOTAL 0.6 mg/dL (0.2-1); TOT PROT 7.5 g/dl (6.4-8.2)
[2022-03-16 12:27] LABS: INR 1.18 (0.83-1.09); PROTHROMBIN TIME (PATIENT) 13.6 SEC (9.7-13.0)
[2022-03-16 12:29] LABS: ACTIVATED PTT 30.7 SECONDS (25.2-36.5)
[2022-03-16 13:05] LABS: EPI CELLS 5 /uL (0-25.1); HYALINE CASTS 2 /uL (0-3.1); PH,URINE 7.5 (5.0-8.0); URINE APPEARANCE TURBID; URINE BACTERIA 419 /uL (0-1359); URINE BILIRUBIN NEGATIVE (NEGATIVE); URINE COLOR YELLOW; URINE GLUCOSE (UA) NEGATIVE (NEGATIVE); URINE KETONE TRACE (NEGATIVE); URINE LEUK ESTERASE 3+ (NEGATIVE); URINE NITRITE NEGATIVE (NEGATIVE); URINE PROTEIN 2+ (NEGATIVE); URINE RBC 324 /uL (0-23.9); URINE WBC 16494 /uL (0-25.8)
[2022-03-16] MEDS ORDERED: CEFTRIAXONE 1,000 MG in DEXTROSE 5%-WATER - 50 ML IVPB ONE (13:17)
[2022-03-16] MEDS ORDERED: CEFTRIAXONE 1 GM/50 ML BAG ONE (13:56)
[2022-03-16] MEDS ORDERED: SODIUM CHLORIDE 1,000 ML IV STA (14:52)
[2022-03-16] MEDS ORDERED: ACETAMINOPHEN 325 MG TABLET (FP) PO PRN (14:52)
[2022-03-16] MEDS: SODIUM CHLORIDE 1,000 ML IV SCH (15:06)
[2022-03-16] MEDS ORDERED: POLYETHYLENE GLYCOL (HEALTHYLAX) 3350 17 GM PACKET PO PRN (16:41)
[2022-03-16] MEDS ORDERED: CANDESARTAN CILEXETIL 16 MG PO SCH (16:45)
[2022-03-16] MEDS ORDERED: LURASIDONE HCL 40 MG TABLET PO SCH (16:45)
[2022-03-16] MEDS: amLODIPine BESYLATE 10 MG TABLET (FP) PO SCH (17:00)
[2022-03-16] MEDS: TAMSULOSIN HCL 0.4 MG CAP PO SCH (17:00)
[2022-03-16] MEDS: LOSARTAN POTASSIUM 50 MG TABLET PO SCH (19:15)
[2022-03-16 20:09] LABS: COCAINE, UR NEGATIVE (NEGATIVE); METHADONE, UR NEGATIVE (NEGATIVE); OPIATES, URI NEGATIVE (NEGATIVE); URINE BARBITURATES NEGATIVE (NEGATIVE)
[2022-03-16 20:10] LABS: PHENCYCLIDINE,URINE NEGATIVE (NEGATIVE); URINE BENZODIAZEPINES NEGATIVE (NEGATIVE)
[2022-03-16 20:11] LABS: URINE AMPHETAMINES NEGATIVE (NEGATIVE)
[2022-03-16] MEDS: INSULIN SLIDING SCALE (NOVOLOG) 1 VIAL SQ SCH (21:25)
[2022-03-17 06:40] LABS: BASO % 0.3 % (0-2.0); EOS % 0.6 % (0-4.5); HEMATOCRIT 38.2 % (32.4-45.2); HEMOGLOBIN 12.3 GM/dL (10.7-15.3); LYMPH % 15.7 % (8-40); MCHC 32.3 g/dl (32.0-36.0); MEAN CELL VOLUME 83.7 fl (80-96); MEAN PLT VOLUME 9.1 fl (7.5-11.1); MONO % 8.8 % (3.8-10.2); NEUT % 74.6 % (42.8-82.8); PLATELET COUNT 107 10^3/uL (134-434); RBC 4.56 M/mm3 (3.60-5.2); RDW 20.2 % (11.6-15.6); WHITE BLOOD COUNT 9.3 K/mm3 (4.0-10.0)
[2022-03-17 07:00] LABS: BLOOD UREA NITROGEN 9.9 mg/dL (7-18); CALCIUM 8.5 mg/dL (8.5-10.1)
[2022-03-17 07:04] LABS: CREATININE 0.5 mg/dL (0.55-1.3)
[2022-03-17] MEDS: INSULIN SLIDING SCALE (NOVOLOG) 1 VIAL SQ SCH ×4 (07:40→21:59)
[2022-03-17] MEDS ORDERED: TAMSULOSIN HCL 0.4 MG CAP ONE (08:17)
[2022-03-17] MEDS ORDERED: POTASSIUM CHLORIDE TABS 20 MEQ TABLET.ER (FP) PO ONE (08:17)
[2022-03-17] MEDS: POTASSIUM CHLORIDE TABS 20 MEQ TABLET.ER (FP) PO SCH ×2 (08:24→11:44)
[2022-03-17] MEDS: TAMSULOSIN HCL 0.4 MG CAP PO SCH (08:24)
[2022-03-17] MEDS ORDERED: ALBUTEROL SO4 HFA INHALER IH PRN (09:38)
[2022-03-17] MEDS ORDERED: ENOXAPARIN NA (PORCINE) 40 MG/0.4 ML DISP.SYRIN SQ SCH (10:00)
[2022-03-17] MEDS: CEFTRIAXONE 1 GM in DEXTROSE 5%-WATER - 50 ML IVPB SCH (11:02)
[2022-03-17] MEDS: FOLIC ACID 1 MG TABLET (FP) PO SCH (11:44)
[2022-03-17] MEDS: LOSARTAN POTASSIUM 50 MG TABLET PO SCH (11:44)
[2022-03-17] MEDS: BENZTROPINE MESYLATE 1 MG TABLET PO SCH ×2 (11:44→21:54)
[2022-03-17] MEDS: ARIPiprazole 5 MG TABLET PO SCH (11:44)
[2022-03-17] MEDS: lamoTRIgine 100 MG TABLET PO SCH (13:10)
[2022-03-17] MEDS: buPROPion HCL 100 MG TABLET PO SCH (13:10)
[2022-03-17] MEDS: amLODIPine BESYLATE 10 MG TABLET (FP) PO SCH (13:10)
[2022-03-17] MEDS: NYSTATIN 100000 UNIT/GM TOPICAL OINTMENT 15 GM TUBE TP SCH ×2 (14:12→21:55)
[2022-03-17] MEDS: SODIUM CHLORIDE 1,000 ML IV SCH (14:12)
[2022-03-18] MEDS: INSULIN SLIDING SCALE (NOVOLOG) 1 VIAL SQ SCH ×4 (06:20→21:46)
[2022-03-18] MEDS: CEFTRIAXONE 1 GM in DEXTROSE 5%-WATER - 50 ML IVPB SCH (09:34)
[2022-03-18] MEDS: LOSARTAN POTASSIUM 50 MG TABLET PO SCH (09:35)
[2022-03-18] MEDS: amLODIPine BESYLATE 10 MG TABLET (FP) PO SCH (09:35)
[2022-03-18] MEDS: TAMSULOSIN HCL 0.4 MG CAP PO SCH (09:35)
[2022-03-18] MEDS: ARIPiprazole 5 MG TABLET PO SCH (09:35)
[2022-03-18] MEDS: FOLIC ACID 1 MG TABLET (FP) PO SCH (09:36)
[2022-03-18] MEDS: BENZTROPINE MESYLATE 1 MG TABLET PO SCH ×2 (09:36→21:45)
[2022-03-18] MEDS: buPROPion HCL 100 MG TABLET PO SCH (09:37)
[2022-03-18] MEDS: lamoTRIgine 100 MG TABLET PO SCH (09:37)
[2022-03-18 11:15] LABS: BASO % 0.2 % (0-2.0); EOS % 0.9 % (0-4.5); HEMATOCRIT 36.9 % (32.4-45.2); HEMOGLOBIN 12.4 GM/dL (10.7-15.3); LYMPH % 13.5 % (8-40); MCH 27.9 pg (25.7-33.7); MCHC 33.7 g/dl (32.0-36.0); MEAN PLT VOLUME 9.8 fl (7.5-11.1); MONO % 8.1 % (3.8-10.2); NEUT % 77.3 % (42.8-82.8); PLATELET COUNT 95 10^3/uL (134-434); RBC 4.44 M/mm3 (3.60-5.2); RDW 20.2 % (11.6-15.6); WHITE BLOOD COUNT 9.3 K/mm3 (4.0-10.0)
[2022-03-18 11:38] LABS: BLOOD UREA NITROGEN 11.3 mg/dL (7-18)
[2022-03-18 11:41] LABS: CALCIUM 8.7 mg/dL (8.5-10.1); CREATININE 0.5 mg/dL (0.55-1.3)
[2022-03-18 11:42] LABS: BILIRUBIN,TOTAL 0.4 mg/dL (0.2-1); TOT PROT 6.8 g/dl (6.4-8.2)
[2022-03-18] MEDS: SODIUM CHLORIDE 1,000 ML IV SCH ×2 (12:00→23:30)
[2022-03-18] MEDS: NYSTATIN 100000 UNIT/GM TOPICAL OINTMENT 15 GM TUBE TP SCH ×2 (12:02→21:46)
[2022-03-18] MEDS: [UNRECOGNIZED DRUG - OTHER] PO SCH ×2 (12:10→12:11)
[2022-03-18 16:36] VITALS: BMI 35.4
[2022-03-18] MEDS: POTASSIUM CHLORIDE TABS 20 MEQ TABLET.ER (FP) PO SCH ×2 (18:00→21:45)
[2022-03-19] MEDS: INSULIN SLIDING SCALE (NOVOLOG) 1 VIAL SQ SCH ×4 (06:17→21:18)
[2022-03-19 09:03] LABS: BASO % 0.4 % (0-2.0); EOS % 2.6 % (0-4.5); HEMATOCRIT 41.4 % (32.4-45.2); LYMPH % 16.5 % (8-40); MCH 27.3 pg (25.7-33.7); MCHC 31.3 g/dl (32.0-36.0); MEAN PLT VOLUME 9.7 fl (7.5-11.1); NEUT % 72.5 % (42.8-82.8); PLATELET COUNT 79 10^3/uL (134-434); RBC 4.76 M/mm3 (3.60-5.2); RDW 19.9 % (11.6-15.6); WHITE BLOOD COUNT 8.4 K/mm3 (4.0-10.0)
[2022-03-19 09:32] LABS: ALBUMIN 2.9 g/dl (3.4-5.0); BLOOD UREA NITROGEN 11.4 mg/dL (7-18); CALCIUM 8.5 mg/dL (8.5-10.1); MAGNESIUM 1.9 mg/dL (1.8-2.4)
[2022-03-19 09:35] LABS: CREATININE 0.5 mg/dL (0.55-1.3)
[2022-03-19 09:37] LABS: BILIRUBIN,TOTAL 0.3 mg/dL (0.2-1); TOT PROT 6.3 g/dl (6.4-8.2)
[2022-03-19] MEDS: amLODIPine BESYLATE 10 MG TABLET (FP) PO SCH (10:03)
[2022-03-19] MEDS: LOSARTAN POTASSIUM 50 MG TABLET PO SCH (10:03)
[2022-03-19] MEDS: TAMSULOSIN HCL 0.4 MG CAP PO SCH (10:03)
[2022-03-19] MEDS: ARIPiprazole 5 MG TABLET PO SCH (10:03)
[2022-03-19] MEDS: CEFTRIAXONE 1 GM in DEXTROSE 5%-WATER - 50 ML IVPB SCH (10:04)
[2022-03-19] MEDS: BENZTROPINE MESYLATE 1 MG TABLET PO SCH ×2 (10:04→21:15)
[2022-03-19] MEDS: SODIUM CHLORIDE 1,000 ML IV SCH ×2 (10:05→21:14)
[2022-03-19] MEDS: FOLIC ACID 1 MG TABLET (FP) PO SCH (10:05)
[2022-03-19] MEDS: buPROPion HCL 100 MG TABLET PO SCH (10:05)
[2022-03-19] MEDS: NYSTATIN 100000 UNIT/GM TOPICAL OINTMENT 15 GM TUBE TP SCH ×2 (10:28→21:17)
[2022-03-19] MEDS: lamoTRIgine 100 MG TABLET PO SCH (13:30)
[2022-03-19] MEDS ORDERED: AZITHROMYCIN IVPB 500 MG/250 ML BAG IVPB ONE (14:27)
[2022-03-19] MEDS ORDERED: POTASSIUM CHLORIDE TABS 20 MEQ TABLET.ER (FP) PO ONE (14:35)
[2022-03-19] MEDS: AMINO ACIDS/PROTEIN HYDROLYS 30 ML LIQUID.PKT PO SCH (16:36)
[2022-03-20] MEDS: INSULIN SLIDING SCALE (NOVOLOG) 1 VIAL SQ SCH ×3 (06:14→17:41)
[2022-03-20] MEDS: CEFTRIAXONE 1 GM in DEXTROSE 5%-WATER - 50 ML IVPB SCH (09:08)
[2022-03-20] MEDS: LOSARTAN POTASSIUM 50 MG TABLET PO SCH (09:08)
[2022-03-20] MEDS: ARIPiprazole 5 MG TABLET PO SCH (09:09)
[2022-03-20] MEDS: TAMSULOSIN HCL 0.4 MG CAP PO SCH (09:09)
[2022-03-20] MEDS: buPROPion HCL 100 MG TABLET PO SCH (09:09)
[2022-03-20] MEDS: BENZTROPINE MESYLATE 1 MG TABLET PO SCH ×2 (09:09→21:13)
[2022-03-20] MEDS: FOLIC ACID 1 MG TABLET (FP) PO SCH (09:09)
[2022-03-20] MEDS: NYSTATIN 100000 UNIT/GM TOPICAL OINTMENT 15 GM TUBE TP SCH ×2 (09:09→22:07)
[2022-03-20] MEDS: amLODIPine BESYLATE 10 MG TABLET (FP) PO SCH (09:10)
[2022-03-20] MEDS: AMINO ACIDS/PROTEIN HYDROLYS 30 ML LIQUID.PKT PO SCH ×2 (09:17→17:41)
[2022-03-20] MEDS ORDERED: AZITHROMYCIN IVPB 250 MG in DEXTROSE 5%-WATER - 250 ML IVPB SCH (10:00)
[2022-03-20 11:52] LABS: BASO % 0.5 % (0-2.0); EOS % 1.6 % (0-4.5); HEMATOCRIT 37.5 % (32.4-45.2); HEMOGLOBIN 12.5 GM/dL (10.7-15.3); LYMPH % 18.7 % (8-40); MCH 27.5 pg (25.7-33.7); MCHC 33.4 g/dl (32.0-36.0); MEAN CELL VOLUME 82.5 fl (80-96); MEAN PLT VOLUME 10.9 fl (7.5-11.1); MONO % 6.7 % (3.8-10.2); NEUT % 72.5 % (42.8-82.8); PLATELET COUNT 92 10^3/uL (134-434); RBC 4.54 M/mm3 (3.60-5.2); RDW 19.3 % (11.6-15.6); WHITE BLOOD COUNT 9.2 K/mm3 (4.0-10.0)
[2022-03-20] MEDS: lamoTRIgine 100 MG TABLET PO SCH (12:25)
[2022-03-20] MEDS: SODIUM CHLORIDE 1,000 ML IV SCH (12:25)
[2022-03-20 12:54] LABS: CALCIUM 8.9 mg/dL (8.5-10.1)
[2022-03-20 12:55] LABS: BLOOD UREA NITROGEN 11.3 mg/dL (7-18); MAGNESIUM 1.9 mg/dL (1.8-2.4)
[2022-03-20 12:58] LABS: CREATININE 0.6 mg/dL (0.55-1.3)
[2022-03-20 13:00] LABS: BILIRUBIN,TOTAL 0.2 mg/dL (0.2-1); TOT PROT 6.6 g/dl (6.4-8.2)
[2022-03-21] MEDS: INSULIN SLIDING SCALE (NOVOLOG) 1 VIAL SQ SCH ×2 (01:07→07:40)
[2022-03-21] MEDS ORDERED: TAMSULOSIN HCL 0.4 MG CAP PO SCH (08:30)
[2022-03-21 08:48] VITALS: BP 156/75; PULSE 93; RESP 18; TEMP 98
[2022-03-21 09:33] LABS: BASO % 0.3 % (0-2.0); EOS % 2.7 % (0-4.5); HEMATOCRIT 39.3 % (32.4-45.2); HEMOGLOBIN 12.6 GM/dL (10.7-15.3); LYMPH % 25.5 % (8-40); MCH 27.2 pg (25.7-33.7); MCHC 32.1 g/dl (32.0-36.0); MEAN CELL VOLUME 84.8 fl (80-96); MEAN PLT VOLUME 10.9 fl (7.5-11.1); MONO % 7.3 % (3.8-10.2); NEUT % 64.2 % (42.8-82.8); PLATELET COUNT 121 10^3/uL (134-434); RBC 4.64 M/mm3 (3.60-5.2); RDW 20.1 % (11.6-15.6); WHITE BLOOD COUNT 9.6 K/mm3 (4.0-10.0)
[2022-03-21 09:59] LABS: CALCIUM 8.9 mg/dL (8.5-10.1)
[2022-03-21 10:00] LABS: ALBUMIN 3.2 g/dl (3.4-5.0); BLOOD UREA NITROGEN 12.6 mg/dL (7-18)
[2022-03-21 10:03] LABS: CREATININE 0.7 mg/dL (0.55-1.3)
[2022-03-21 10:05] LABS: BILIRUBIN,TOTAL 0.3 mg/dL (0.2-1)
== END 2022-03-21 10:46 | disposition home or self-care (01) | DRG 463 ==
LOC: JER 10:19 → JERBED 13:25 → J8W 03-17 08:38
PROVIDERS: ADMIT Internal Medicine; ATTEND Nurse Practitioner Acute Care
DX: N39.0 Urinary tract infection, site not specified (principal); G93.41 Metabolic encephalopathy; F41.8 Other specified anxiety disorders; E11.9 Type 2 diabetes mellitus without complications; M32.9 Systemic lupus erythematosus, unspecified; I10 Essential (primary) hypertension; J69.0 Pneumonitis due to inhalation of food and vomit; J45.909 Unspecified asthma, uncomplicated; K21.9 Gastro-esophageal reflux disease without esophagitis; N81.10 Cystocele, unspecified; I42.2 Other hypertrophic cardiomyopathy; E03.9 Hypothyroidism, unspecified; N76.5 Ulceration of vagina; D69.3 Immune thrombocytopenic purpura; F31.9 Bipolar disorder, unspecified; B96.20 Unspecified Escherichia coli [E. coli] as the cause of diseases classified elsewhere; W18.30XA Fall on same level, unspecified, initial encounter; Y92.89 Other specified places as the place of occurrence of the external cause; Y99.8 Other external cause status
CPT/HCPCS: 0241U-QW; 36415; 70450-TC; 71045-TC-FY; 72170-TC-FY; 73562-TC-LT-FY; 74176-TC; 80048; 80053; 80307; 81003; 82803; 82962; 83036; 83605; 83735; 84443; 84484; 85025; 85610; 85730; 86140; 86850; 86870; 86900; 86901; 86902; 87040; 87086; 87186; 93005; 93010; 97116-GP; 97161-GP; 99285-25

== ENCOUNTER 2022-03-30 09:49 | Observation (INO) | payer OTHER ==
[2022-03-30 13:16] LABS: BASO % 0.3 % (0-2.0); EOS % 1.3 % (0-4.5); HEMATOCRIT 41.8 % (32.4-45.2); HEMOGLOBIN 13.8 GM/dL (10.7-15.3); MCH 27.5 pg (25.7-33.7); MCHC 33.1 g/dl (32.0-36.0); MEAN CELL VOLUME 83.3 fl (80-96); MEAN PLT VOLUME 8.8 fl (7.5-11.1); MONO % 5.2 % (3.8-10.2); NEUT % 73.2 % (42.8-82.8); PLATELET COUNT 263 10^3/uL (134-434); RBC 5.02 M/mm3 (3.60-5.2); RDW 19.2 % (11.6-15.6); WHITE BLOOD COUNT 8.7 K/mm3 (4.0-10.0)
[2022-03-30 13:31] LABS: CHLORIDE 108 mmol/L (98-107); SODIUM 142 mmol/L (136-145)
[2022-03-30 13:33] LABS: CALCIUM 9.4 mg/dL (8.5-10.1)
[2022-03-30 13:34] LABS: ALBUMIN 3.5 g/dl (3.4-5.0); ANION GAP 7 MMOL/L (8-16); BLOOD UREA NITROGEN 10.8 mg/dL (7-18); CO2 28 mmol/L (21-32); GLUCOSE,RANDOM 100 mg/dL (74-106); MAGNESIUM 2.3 mg/dL (1.8-2.4)
[2022-03-30 13:38] LABS: CREATININE 0.7 mg/dL (0.55-1.3); PHOSPHOROUS 3.3 mg/dL (2.5-4.9); SGOT/AST 17 U/L (15-37); SGPT/ALT 19 U/L (13-61)
[2022-03-30 13:39] LABS: BILIRUBIN,TOTAL 0.4 mg/dL (0.2-1); TOT PROT 7.7 g/dl (6.4-8.2)
[2022-03-30 13:40] LABS: ALK PHOS 105 U/L (45-117)
[2022-03-30] MEDS ORDERED: ACETAMINOPHEN 325 MG TABLET (FP) PO PRN (16:49)
[2022-03-30] MEDS ORDERED: ONDANSETRON 4 MG/2 ML VIAL IVPUSH PRN (16:51)
[2022-03-30] MEDS ORDERED: GABAPENTIN 400 MG CAPSULE ONE (18:18)
[2022-03-30] MEDS ORDERED: lamoTRIgine 100 MG TABLET ONE (18:18)
[2022-03-30] MEDS: GABAPENTIN 400 MG CAPSULE PO SCH ×2 (18:23→22:31)
[2022-03-30] MEDS: DOXEPIN HCL 10 MG CAPSULE PO SCH (22:32)
[2022-03-30] MEDS: BENZTROPINE MESYLATE 1 MG TABLET PO SCH (22:32)
[2022-03-30] MEDS: LACTATED RINGERS SOLUTION 1,000 ML/1,000 ML INFUS.BAG IV SCH (22:32)
[2022-03-30] MEDS: INSULIN SLIDING SCALE (NOVOLOG) 1 VIAL SQ SCH (23:05)
[2022-03-31] MEDS: LACTATED RINGERS SOLUTION 1,000 ML/1,000 ML INFUS.BAG IV SCH ×2 (01:56→11:36)
[2022-03-31 02:21] VITALS: BMI 33.4
[2022-03-31] MEDS: INSULIN SLIDING SCALE (NOVOLOG) 1 VIAL SQ SCH ×2 (06:46→11:40)
[2022-03-31] MEDS ORDERED: ARIPiprazole 5 MG TABLET ONE (09:05)
[2022-03-31] MEDS: TAMSULOSIN HCL 0.4 MG CAP PO SCH (09:12)
[2022-03-31] MEDS: GABAPENTIN 400 MG CAPSULE PO SCH ×3 (09:12→21:33)
[2022-03-31] MEDS: FOLIC ACID 1 MG TABLET (FP) PO SCH (09:12)
[2022-03-31] MEDS: ARIPiprazole 10 MG TABLET PO SCH (09:12)
[2022-03-31] MEDS: ENOXAPARIN NA (PORCINE) 40 MG/0.4 ML DISP.SYRIN SQ SCH (09:13)
[2022-03-31] MEDS: BENZTROPINE MESYLATE 1 MG TABLET PO SCH ×2 (09:13→21:31)
[2022-03-31 10:02] LABS: EPI CELLS >36 /uL (0-25.1); HYALINE CASTS 3 /uL (0-3.1); PH,URINE 5.5 (5.0-8.0); URINE APPEARANCE TURBID; URINE BACTERIA >9,000 /uL (0-1359); URINE BILIRUBIN NEGATIVE (NEGATIVE); URINE COLOR DK YELLOW; URINE GLUCOSE (UA) NEGATIVE (NEGATIVE); URINE KETONE TRACE (NEGATIVE); URINE LEUK ESTERASE 3+ (NEGATIVE); URINE NITRITE POSITIVE (NEGATIVE); URINE PROTEIN 1+ (NEGATIVE); URINE UROBILINOGEN 0.2 mg/dL (0.2-1.0); URINE WBC 5750 /uL (0-25.8)
[2022-03-31 10:14] LABS: METHADONE, UR NEGATIVE (NEGATIVE); PHENCYCLIDINE,URINE NEGATIVE (NEGATIVE); URINE BENZODIAZEPINES NEGATIVE (NEGATIVE)
[2022-03-31 10:15] LABS: COCAINE, UR NEGATIVE (NEGATIVE); OPIATES, URI NEGATIVE (NEGATIVE); URINE AMPHETAMINES NEGATIVE (NEGATIVE)
[2022-03-31 10:20] LABS: URINE BARBITURATES NEGATIVE (NEGATIVE)
[2022-03-31 11:07] LABS: URINE CRYSTALS NEGATIVE /hpf; URINE RBC 21.4 /uL (0-23.9)
[2022-03-31] MEDS ORDERED: INSULIN (NOVOLOG) ASPART 100 UNITS/ML 10ML VIAL ONE (11:32)
[2022-03-31] MEDS: LURASIDONE HCL 40 MG TABLET PO SCH (11:37)
[2022-03-31] MEDS: buPROPion HCL 100 MG TABLET PO SCH (11:37)
[2022-03-31] MEDS: lamoTRIgine 100 MG TABLET PO SCH (11:55)
[2022-03-31 12:05] LABS: HEMATOCRIT 38.1 % (32.4-45.2); HEMOGLOBIN 12.4 GM/dL (10.7-15.3); MCH 27.5 pg (25.7-33.7); MCHC 32.6 g/dl (32.0-36.0); MEAN CELL VOLUME 84.3 fl (80-96); MEAN PLT VOLUME 9.4 fl (7.5-11.1); PLATELET COUNT 184 10^3/uL (134-434); RBC 4.52 M/mm3 (3.60-5.2); RDW 19.4 % (11.6-15.6); WHITE BLOOD COUNT 8.7 K/mm3 (4.0-10.0)
[2022-03-31] MEDS: [UNRECOGNIZED DRUG - OTHER] PO SCH ×3 (12:18→21:33)
[2022-03-31 12:29] LABS: BLOOD UREA NITROGEN 11.5 mg/dL (7-18); CALCIUM 8.8 mg/dL (8.5-10.1); MAGNESIUM 2.3 mg/dL (1.8-2.4)
[2022-03-31 12:33] LABS: CREATININE 0.9 mg/dL (0.55-1.3); PHOSPHOROUS 3.6 mg/dL (2.5-4.9)
[2022-03-31] MEDS: CEFTRIAXONE 1 GM in DEXTROSE 5%-WATER - 50 ML IVPB SCH (15:01)
[2022-03-31] MEDS: diphenhydrAMINE HCL 25 MG CAPSULE (FP) PO PRN ×2 (15:02→21:36)
[2022-03-31] MEDS: DOXEPIN HCL 10 MG CAPSULE PO SCH (21:31)
[2022-04-01] MEDS: GABAPENTIN 400 MG CAPSULE PO SCH ×4 (03:21→21:37)
[2022-04-01] MEDS ORDERED: ARIPiprazole 5 MG TABLET ONE (10:02)
[2022-04-01] MEDS: lamoTRIgine 100 MG TABLET PO SCH (10:12)
[2022-04-01] MEDS: ARIPiprazole 10 MG TABLET PO SCH (10:12)
[2022-04-01] MEDS: TAMSULOSIN HCL 0.4 MG CAP PO SCH (10:12)
[2022-04-01] MEDS: ENOXAPARIN NA (PORCINE) 40 MG/0.4 ML DISP.SYRIN SQ SCH (10:13)
[2022-04-01] MEDS: FOLIC ACID 1 MG TABLET (FP) PO SCH (10:13)
[2022-04-01] MEDS: [UNRECOGNIZED DRUG - OTHER] PO SCH ×2 (10:13→21:39)
[2022-04-01 10:14] LABS: BASO % 0.4 % (0-2.0); EOS % 2.3 % (0-4.5); LYMPH % 32.7 % (8-40); MCH 27.6 pg (25.7-33.7); MCHC 32.6 g/dl (32.0-36.0); MEAN CELL VOLUME 84.7 fl (80-96); NEUT % 59.6 % (42.8-82.8); PLATELET COUNT 148 10^3/uL (134-434); RBC 4.73 M/mm3 (3.60-5.2); RDW 19.8 % (11.6-15.6); WHITE BLOOD COUNT 7.2 K/mm3 (4.0-10.0)
[2022-04-01] MEDS: LURASIDONE HCL 40 MG TABLET PO SCH (10:14)
[2022-04-01] MEDS: BENZTROPINE MESYLATE 1 MG TABLET PO SCH ×2 (10:15→21:38)
[2022-04-01] MEDS: buPROPion HCL 100 MG TABLET PO SCH (10:16)
[2022-04-01] MEDS: CEFTRIAXONE 1 GM in DEXTROSE 5%-WATER - 50 ML IVPB SCH (10:18)
[2022-04-01 10:38] LABS: ALBUMIN 3.2 g/dl (3.4-5.0); BLOOD UREA NITROGEN 14.6 mg/dL (7-18); CALCIUM 8.7 mg/dL (8.5-10.1); MAGNESIUM 2.4 mg/dL (1.8-2.4)
[2022-04-01 10:42] LABS: BILIRUBIN,TOTAL 0.3 mg/dL (0.2-1); TOT PROT 6.8 g/dl (6.4-8.2)
[2022-04-01] MEDS: diphenhydrAMINE HCL 25 MG CAPSULE (FP) PO PRN (12:35)
[2022-04-01] MEDS ORDERED: ZOLPIDEM TARTRATE 5 MG TABLET PO PRN (17:19)
[2022-04-01] MEDS: DOXEPIN HCL 10 MG CAPSULE PO SCH (21:40)
[2022-04-02] MEDS: GABAPENTIN 400 MG CAPSULE PO SCH ×2 (03:46→09:43)
[2022-04-02 08:17] LABS: BASO % 0.6 % (0-2.0); EOS % 3.3 % (0-4.5); HEMATOCRIT 36.5 % (32.4-45.2); MCH 27.9 pg (25.7-33.7); MCHC 32.8 g/dl (32.0-36.0); MEAN PLT VOLUME 9.3 fl (7.5-11.1); NEUT % 57.1 % (42.8-82.8); PLATELET COUNT 124 10^3/uL (134-434); RDW 18.8 % (11.6-15.6); WHITE BLOOD COUNT 7.6 K/mm3 (4.0-10.0)
[2022-04-02 08:40] LABS: BLOOD UREA NITROGEN 17.9 mg/dL (7-18); CALCIUM 8.7 mg/dL (8.5-10.1); MAGNESIUM 2.4 mg/dL (1.8-2.4)
[2022-04-02 08:41] LABS: ALBUMIN 3.1 g/dl (3.4-5.0)
[2022-04-02 08:43] LABS: CREATININE 0.9 mg/dL (0.55-1.3)
[2022-04-02 08:44] LABS: TOT PROT 6.6 g/dl (6.4-8.2)
[2022-04-02 08:45] LABS: BILIRUBIN,TOTAL 0.2 mg/dL (0.2-1)
[2022-04-02] MEDS ORDERED: ARIPiprazole 5 MG TABLET ONE (09:24)
[2022-04-02] MEDS: TAMSULOSIN HCL 0.4 MG CAP PO SCH (09:42)
[2022-04-02] MEDS: ARIPiprazole 10 MG TABLET PO SCH (09:43)
[2022-04-02] MEDS: FOLIC ACID 1 MG TABLET (FP) PO SCH (09:43)
[2022-04-02] MEDS: CEFTRIAXONE 1 GM in DEXTROSE 5%-WATER - 50 ML IVPB SCH (09:43)
[2022-04-02] MEDS: [UNRECOGNIZED DRUG - OTHER] PO SCH (09:44)
[2022-04-02] MEDS: BENZTROPINE MESYLATE 1 MG TABLET PO SCH (09:44)
[2022-04-02] MEDS: lamoTRIgine 100 MG TABLET PO SCH (09:45)
[2022-04-02] MEDS: LURASIDONE HCL 40 MG TABLET PO SCH (09:45)
[2022-04-02] MEDS: ENOXAPARIN NA (PORCINE) 40 MG/0.4 ML DISP.SYRIN SQ SCH (09:46)
[2022-04-02] MEDS: buPROPion HCL 100 MG TABLET PO SCH (09:46)
[2022-04-02] MEDS: diphenhydrAMINE HCL 25 MG CAPSULE (FP) PO PRN (10:00)
[2022-04-02 12:10] VITALS: BP 116/62; PULSE 72; RESP 18; TEMP 98.2
== END 2022-04-02 12:31 | disposition home or self-care (01) ==
LOC: JER 09:49 → JERBED 16:20 → J8W 21:09
PROVIDERS: ADMIT Internal Medicine; ATTEND Nurse Practitioner Acute Care
PROC: 3E03329 Introduction of Other Anti-infective into Peripheral Vein, Percutaneous Approach (ICD-10-PCS; principal; 2022-03-30)
PROC: 3E023GC Introduction of Other Therapeutic Substance into Muscle, Percutaneous Approach (ICD-10-PCS; 2022-03-30)
PROC: 3E0337Z Introduction of Electrolytic and Water Balance Substance into Peripheral Vein, Percutaneous Approach (ICD-10-PCS; 2022-03-30)
DX: G93.41 Metabolic encephalopathy (principal); F31.9 Bipolar disorder, unspecified; E11.9 Type 2 diabetes mellitus without complications; D69.3 Immune thrombocytopenic purpura; Z86.19 Personal history of other infectious and parasitic diseases; I10 Essential (primary) hypertension; Z29.8 Encounter for other specified prophylactic measures; N39.0 Urinary tract infection, site not specified; R19.7 Diarrhea, unspecified; N76.5 Ulceration of vagina; Z91.09 Other allergy status, other than to drugs and biological substances; Z88.5 Allergy status to narcotic agent
CPT/HCPCS: 36415; 70450-TC; 71045-TC-FY; 74018-TC-FY; 80048; 80053; 80307; 81003; 82550; 82962; 83735; 84100; 84484; 85025; 85027; 87045; 87046; 87086; 87186; 87205; 87209; 87324; 87449; 93005; 93010; 96361; 96365; 96372; 97116-GP; 97161-GP; 99285-25; C9803-CS; G0378; U0003; U0005

== ENCOUNTER 2022-04-25 14:36 | Observation (INO) | payer OTHER ==
[2022-04-25 16:30] VITALS: BMI 40.2
[2022-04-25] MEDS ORDERED: SODIUM CHLORIDE 0.9% 500 ML INFUS.BAG IV ONE (16:54)
[2022-04-25 17:31] LABS: VENOUS BASE EXCESS 1.1 mmol/L (-2-2); VENOUS O2 SATURATION 66.6 % (70-80); VENOUS PCO2 41.7 mmHg (38-52); VENOUS PH 7.41 (7.310-7.410)
[2022-04-25 17:39] LABS: BASO % 0.5 % (0-2.0); EOS % 1.8 % (0-4.5); HEMATOCRIT 41.8 % (32.4-45.2); HEMOGLOBIN 13.9 GM/dL (10.7-15.3); LYMPH % 20.4 % (8-40); MCHC 33.3 g/dl (32.0-36.0); MEAN CELL VOLUME 84.1 fl (80-96); MEAN PLT VOLUME 9.6 fl (7.5-11.1); MONO % 7.9 % (3.8-10.2); NEUT % 69.4 % (42.8-82.8); PLATELET COUNT 148 10^3/uL (134-434); RBC 4.97 M/mm3 (3.60-5.2); RDW 18.3 % (11.6-15.6); WHITE BLOOD COUNT 8.9 K/mm3 (4.0-10.0)
[2022-04-25 17:46] LABS: INR 1.08 (0.83-1.09); PROTHROMBIN TIME (PATIENT) 12.4 SEC (9.7-13.0)
[2022-04-25 17:49] LABS: ACTIVATED PTT 29.9 SECONDS (25.2-36.5)
[2022-04-25 17:54] LABS: BLOOD UREA NITROGEN 12.4 mg/dL (7-18); CALCIUM 9.4 mg/dL (8.5-10.1); MAGNESIUM 2.3 mg/dL (1.8-2.4)
[2022-04-25 17:56] LABS: ALBUMIN 3.6 g/dl (3.4-5.0)
[2022-04-25 17:57] LABS: CREATININE 0.6 mg/dL (0.55-1.3); PHOSPHOROUS 3.9 mg/dL (2.5-4.9)
[2022-04-25 18:00] LABS: BILIRUBIN,TOTAL 0.5 mg/dL (0.2-1); TOT PROT 7.7 g/dl (6.4-8.2)
[2022-04-25 20:51] LABS: EPI CELLS >36 /uL (0-25.1); HYALINE CASTS 4 /uL (0-3.1); URINE APPEARANCE CLEAR; URINE BACTERIA 164 /uL (0-1359); URINE BILIRUBIN NEGATIVE (NEGATIVE); URINE COLOR YELLOW; URINE GLUCOSE (UA) NEGATIVE (NEGATIVE); URINE KETONE 1+ (NEGATIVE); URINE LEUK ESTERASE 2+ (NEGATIVE); URINE NITRITE NEGATIVE (NEGATIVE); URINE PROTEIN TRACE (NEGATIVE); URINE RBC 93 /uL (0-23.9); URINE WBC 63 /uL (0-25.8)
[2022-04-25] MEDS ORDERED: PIPERACILLIN/TAZOB 4.5 GM 4.5 GM in DEXTROSE 5%-WATER 100 ML IVPB ONE (20:59)
[2022-04-26] MEDS ORDERED: MEROPENEM 500 MG in DEXTROSE 5%-WATER 100 ML IVPB SCH (00:30)
[2022-04-26] MEDS ORDERED: SODIUM CHLORIDE 1,000 ML IV SCH (00:30)
[2022-04-26] MEDS ORDERED: MEROPENEM 500 MG VIAL (RESTRICTED TO ID) IVPB ONE ×2 (03:05→12:08)
[2022-04-26] MEDS: MEROPENEM 500 MG in DEXTROSE 5%-WATER 100 ML IVPB SCH ×2 (03:15→12:40)
[2022-04-26 07:37] LABS: BASO % 0.5 % (0-2.0); EOS % 2.4 % (0-4.5); HEMATOCRIT 38.4 % (32.4-45.2); HEMOGLOBIN 12.9 GM/dL (10.7-15.3); MCH 28.4 pg (25.7-33.7); MCHC 33.5 g/dl (32.0-36.0); MEAN CELL VOLUME 84.7 fl (80-96); MEAN PLT VOLUME 9.6 fl (7.5-11.1); MONO % 8.3 % (3.8-10.2); NEUT % 70.8 % (42.8-82.8); PLATELET COUNT 122 10^3/uL (134-434); RBC 4.53 M/mm3 (3.60-5.2); RDW 18.3 % (11.6-15.6); WHITE BLOOD COUNT 7.9 K/mm3 (4.0-10.0)
[2022-04-26] MEDS: INSULIN SLIDING SCALE (NOVOLOG) 1 VIAL SQ SCH ×4 (07:39→21:58)
[2022-04-26 07:45] LABS: ALBUMIN 3.3 g/dl (3.4-5.0); BLOOD UREA NITROGEN 14.3 mg/dL (7-18); CALCIUM 8.8 mg/dL (8.5-10.1); MAGNESIUM 1.9 mg/dL (1.8-2.4)
[2022-04-26 07:49] LABS: CREATININE 0.6 mg/dL (0.55-1.3); PHOSPHOROUS 4.5 mg/dL (2.5-4.9)
[2022-04-26 07:51] LABS: BILIRUBIN,TOTAL 0.5 mg/dL (0.2-1); TOT PROT 6.9 g/dl (6.4-8.2)
[2022-04-26] MEDS ORDERED: ENOXAPARIN NA (PORCINE) 40 MG/0.4 ML DISP.SYRIN SQ ONE (08:41)
[2022-04-26] MEDS ORDERED: lamoTRIgine 100 MG TABLET ONE (08:41)
[2022-04-26] MEDS ORDERED: METOPROLOL TARTRATE 25 MG TABLET (FP) ONE ×2 (08:41→22:04)
[2022-04-26] MEDS ORDERED: LOSARTAN POTASSIUM 50 MG TABLET ONE (08:41)
[2022-04-26] MEDS ORDERED: amLODIPine BESYLATE 10 MG TABLET (FP) ONE (09:11)
[2022-04-26] MEDS: LOSARTAN POTASSIUM 50 MG TABLET PO SCH (09:25)
[2022-04-26] MEDS: LURASIDONE HCL 40 MG TABLET PO SCH (09:25)
[2022-04-26] MEDS: METOPROLOL TARTRATE 25 MG TABLET (FP) PO SCH ×2 (09:25→22:17)
[2022-04-26] MEDS: lamoTRIgine 100 MG TABLET PO SCH (09:25)
[2022-04-26] MEDS: amLODIPine BESYLATE 10 MG TABLET (FP) PO SCH (09:25)
[2022-04-26] MEDS: ENOXAPARIN NA (PORCINE) 40 MG/0.4 ML DISP.SYRIN SQ SCH (09:25)
[2022-04-26] MEDS: BENZTROPINE MESYLATE 1 MG TABLET PO SCH ×2 (09:25→22:17)
[2022-04-26] MEDS ORDERED: CANDESARTAN CILEXETIL 16 MG PO SCH (10:00)
[2022-04-26] MEDS ORDERED: MEROPENEM 1 GM VIAL (RESTRICTED TO ID) IVPB ONE (17:44)
[2022-04-26] MEDS: MEROPENEM 1 GM in DEXTROSE 5%-WATER 100 ML IVPB SCH (17:45)
[2022-04-27] MEDS: MEROPENEM 1 GM in DEXTROSE 5%-WATER 100 ML IVPB SCH (06:20)
[2022-04-27] MEDS: INSULIN SLIDING SCALE (NOVOLOG) 1 VIAL SQ SCH ×3 (06:20→16:45)
[2022-04-27 06:50] VITALS: RESP 18
[2022-04-27] MEDS: METOPROLOL TARTRATE 25 MG TABLET (FP) PO SCH (09:40)
[2022-04-27] MEDS: ENOXAPARIN NA (PORCINE) 40 MG/0.4 ML DISP.SYRIN SQ SCH (09:40)
[2022-04-27] MEDS: LOSARTAN POTASSIUM 50 MG TABLET PO SCH (09:40)
[2022-04-27] MEDS: amLODIPine BESYLATE 10 MG TABLET (FP) PO SCH (09:41)
[2022-04-27] MEDS: LURASIDONE HCL 40 MG TABLET PO SCH (09:41)
[2022-04-27] MEDS: BENZTROPINE MESYLATE 1 MG TABLET PO SCH (09:41)
[2022-04-27] MEDS ORDERED: FLU VACC QS2022-23(6MOS UP)/PF 60 MCG/0.5 ML SYRINGE IM ONE (10:00)
[2022-04-27 10:38] VITALS: TEMP 98.8
[2022-04-27 11:12] LABS: BASO % 0.5 % (0-2.0); EOS % 2.8 % (0-4.5); HEMATOCRIT 39.1 % (32.4-45.2); HEMOGLOBIN 13.2 GM/dL (10.7-15.3); LYMPH % 18.9 % (8-40); MCH 28.5 pg (25.7-33.7); MCHC 33.7 g/dl (32.0-36.0); MEAN CELL VOLUME 84.6 fl (80-96); MEAN PLT VOLUME 9.2 fl (7.5-11.1); MONO % 7.7 % (3.8-10.2); NEUT % 70.1 % (42.8-82.8); PLATELET COUNT 123 10^3/uL (134-434); RBC 4.62 M/mm3 (3.60-5.2); RDW 17.8 % (11.6-15.6); WHITE BLOOD COUNT 8.3 K/mm3 (4.0-10.0)
[2022-04-27] MEDS: lamoTRIgine 100 MG TABLET PO SCH (11:15)
[2022-04-27 11:30] LABS: BLOOD UREA NITROGEN 16.5 mg/dL (7-18); CALCIUM 9.4 mg/dL (8.5-10.1)
[2022-04-27 11:34] LABS: CREATININE 0.7 mg/dL (0.55-1.3)
[2022-04-27] MEDS ORDERED: GABAPENTIN 400 MG CAPSULE PO SCH (14:00)
[2022-04-27 15:55] VITALS: BP 127/63; PULSE 65
== END 2022-04-27 16:41 | disposition home or self-care (01) ==
LOC: JER 14:36 → UNDOADMIN 17:19 → JERBED 17:19 → INTOOBSV 20:58 → JERBED 20:58 → J5S 04-27 02:36
PROVIDERS: ADMIT Internal Medicine; ATTEND Internal Medicine
PROC: 3E03329 Introduction of Other Anti-infective into Peripheral Vein, Percutaneous Approach (ICD-10-PCS; principal; 2022-04-25)
PROC: 3E0337Z Introduction of Electrolytic and Water Balance Substance into Peripheral Vein, Percutaneous Approach (ICD-10-PCS; 2022-04-25)
DX: R41.82 Altered mental status, unspecified (principal); N39.0 Urinary tract infection, site not specified; F41.8 Other specified anxiety disorders; I25.10 Atherosclerotic heart disease of native coronary artery without angina pectoris; F31.9 Bipolar disorder, unspecified; Z96.653 Presence of artificial knee joint, bilateral; I10 Essential (primary) hypertension; M32.9 Systemic lupus erythematosus, unspecified; N39.9 Disorder of urinary system, unspecified; E78.5 Hyperlipidemia, unspecified; E11.9 Type 2 diabetes mellitus without complications; I11.9 Hypertensive heart disease without heart failure; R32 Unspecified urinary incontinence; E03.9 Hypothyroidism, unspecified; R56.9 Unspecified convulsions; Z91.09 Other allergy status, other than to drugs and biological substances; Z88.8 Allergy status to other drugs, medicaments and biological substances; Z88.5 Allergy status to narcotic agent; Z91.041 Radiographic dye allergy status; Z87.440 Personal history of urinary (tract) infections; Z98.84 Bariatric surgery status; Z87.891 Personal history of nicotine dependence
CPT/HCPCS: 0241U-QW; 36415; 70450-TC; 71045-TC-FY; 80048; 80053; 81003; 82803; 82962; 83605; 83735; 84100; 84443; 84484; 85025; 85610; 85730; 86850; 86870; 86900; 86901; 86902; 87040; 87086; 93005; 93010; 96365; 96366; 96367; 96372; 96375; 97116-GP; 97162-GP; 99285-25; G0378; Q2036

== ENCOUNTER 2022-05-09 09:14 | Inpatient (IN) | payer OTHER ==
[2022-05-09] MEDS ORDERED: ACETAMINOPHEN 1000 MG/100 ML BAG IVPB ONE (11:28)
[2022-05-09] MEDS ORDERED: LACTATED RINGERS SOLUTION 1000 ML INFUS.BAG IV ONE (11:28)
[2022-05-09] MEDS ORDERED: ACETAMINOPHEN INJECTION 100 ML IVPB ONE (12:00)
[2022-05-09 12:34] LABS: BASO % 0.7 % (0-2.0); EOS % 0.7 % (0-4.5); HEMATOCRIT 40.4 % (32.4-45.2); HEMOGLOBIN 13.7 GM/dL (10.7-15.3); LYMPH % 20.7 % (8-40); MCH 28.3 pg (25.7-33.7); MCHC 33.9 g/dl (32.0-36.0); MEAN CELL VOLUME 83.5 fl (80-96); MEAN PLT VOLUME 8.9 fl (7.5-11.1); MONO % 5.2 % (3.8-10.2); NEUT % 72.7 % (42.8-82.8); PLATELET COUNT 260 10^3/uL (134-434); RBC 4.84 M/mm3 (3.60-5.2); RDW 16.7 % (11.6-15.6); WHITE BLOOD COUNT 10.8 K/mm3 (4.0-10.0)
[2022-05-09 12:42] LABS: INR 1.01 (0.83-1.09); PROTHROMBIN TIME (PATIENT) 11.6 SEC (9.7-13.0)
[2022-05-09 12:44] LABS: ACTIVATED PTT 28.7 SECONDS (25.2-36.5)
[2022-05-09 12:51] LABS: ALBUMIN 3.4 g/dl (3.4-5.0); CALCIUM 9.6 mg/dL (8.5-10.1)
[2022-05-09 12:52] LABS: BLOOD UREA NITROGEN 13.6 mg/dL (7-18)
[2022-05-09 12:55] LABS: CREATININE 0.6 mg/dL (0.55-1.3)
[2022-05-09 12:56] LABS: BILIRUBIN,TOTAL 0.4 mg/dL (0.2-1); TOT PROT 7.2 g/dl (6.4-8.2)
[2022-05-09] MEDS ORDERED: PIPERACILLIN/TAZOB 4.5 GM 4.5 GM in DEXTROSE 5%-WATER 100 ML IVPB ONE (18:07)
[2022-05-09 18:16] LABS: EPI CELLS 14 /uL (0-25.1); HYALINE CASTS 2 /uL (0-3.1); URINE APPEARANCE CLOUDY; URINE BACTERIA 190 /uL (0-1359); URINE BILIRUBIN NEGATIVE (NEGATIVE); URINE COLOR YELLOW; URINE GLUCOSE (UA) NEGATIVE (NEGATIVE); URINE KETONE 3+ (NEGATIVE); URINE LEUK ESTERASE 3+ (NEGATIVE); URINE NITRITE NEGATIVE (NEGATIVE); URINE PROTEIN 1+ (NEGATIVE); URINE RBC 55 /uL (0-23.9); URINE UROBILINOGEN 0.2 mg/dL (0.2-1.0); URINE WBC 1415 /uL (0-25.8)
[2022-05-09] MEDS ORDERED: PIPERACILLIN/TAZOB 4.5 GM 4.5 GM/100 ML BAG IVPB ONE ×2 (18:38→18:40)
[2022-05-10] MEDS: GABAPENTIN 400 MG CAPSULE PO SCH ×4 (00:56→13:07)
[2022-05-10] MEDS: QUEtiapine FUMARATE 100 MG TABLET (FP) PO SCH ×3 (00:56→22:36)
[2022-05-10] MEDS: METOPROLOL TARTRATE 25 MG TABLET (FP) PO SCH ×4 (00:56→22:36)
[2022-05-10] MEDS: INSULIN SLIDING SCALE (NOVOLOG) 1 VIAL SQ SCH ×5 (01:00→23:49)
[2022-05-10] MEDS: BENZTROPINE MESYLATE 1 MG TABLET PO SCH ×3 (01:01→22:30)
[2022-05-10] MEDS ORDERED: PIPERACILLIN/TAZOB 3.375 GM 3.375 GM in DEXTROSE 5%-WATER - 50 ML IVPB SCH (03:00)
[2022-05-10] MEDS: SODIUM CHLORIDE 1,000 ML IV SCH ×2 (03:07→22:27)
[2022-05-10 08:21] VITALS: BMI 33.8
[2022-05-10] MEDS ORDERED: PATIENT'S OWN MEDICATION (NON-FORMULARY) (Cariprazine Hcl [Vraylar] 1.5 MG Capsule) PO SCH (10:00)
[2022-05-10] MEDS ORDERED: CANDESARTAN CILEXETIL PO SCH (10:00)
[2022-05-10 10:48] LABS: HEMATOCRIT 38.7 % (32.4-45.2); HEMOGLOBIN 13.3 GM/dL (10.7-15.3); MCH 28.9 pg (25.7-33.7); MCHC 34.3 g/dl (32.0-36.0); MEAN CELL VOLUME 84.2 fl (80-96); MEAN PLT VOLUME 8.9 fl (7.5-11.1); PLATELET COUNT 227 10^3/uL (134-434); RBC 4.59 M/mm3 (3.60-5.2); RDW 16.9 % (11.6-15.6); WHITE BLOOD COUNT 10.3 K/mm3 (4.0-10.0)
[2022-05-10 10:57] LABS: CALCIUM 9.1 mg/dL (8.5-10.1)
[2022-05-10 10:58] LABS: BLOOD UREA NITROGEN 14.1 mg/dL (7-18)
[2022-05-10 11:01] LABS: CREATININE 0.7 mg/dL (0.55-1.3)
[2022-05-10 11:02] LABS: PHOSPHOROUS 3.6 mg/dL (2.5-4.9)
[2022-05-10] MEDS: PIPERACILLIN/TAZOB 3.375 GM 3.375 GM in DEXTROSE 5%-WATER - 50 ML IVPB SCH ×2 (11:25→17:08)
[2022-05-10] MEDS: ENOXAPARIN NA (PORCINE) 40 MG/0.4 ML DISP.SYRIN SQ SCH (11:26)
[2022-05-10] MEDS: VALSARTAN 160 MG TABLET PO SCH (12:37)
[2022-05-10] MEDS: amLODIPine BESYLATE 10 MG TABLET (FP) PO SCH (12:37)
[2022-05-10] MEDS: LURASIDONE HCL 40 MG TABLET PO SCH (14:27)
[2022-05-10] MEDS: buPROPion HCL 100 MG TABLET PO SCH (14:28)
[2022-05-10] MEDS: PATIENT'S OWN MEDICATION (NON-FORMULARY) (Vibegron [Gemtesa] 75 MG Tablet) PO SCH (22:27)
[2022-05-10] MEDS: ALOSETRON HCL 0.5 MG PO SCH (22:29)
[2022-05-10] MEDS: [UNRECOGNIZED DRUG - OTHER] PO SCH (22:43)
[2022-05-11] MEDS: PIPERACILLIN/TAZOB 3.375 GM 3.375 GM in DEXTROSE 5%-WATER - 50 ML IVPB SCH ×2 (01:51→12:00)
[2022-05-11] MEDS: INSULIN SLIDING SCALE (NOVOLOG) 1 VIAL SQ SCH ×3 (06:37→16:53)
[2022-05-11 09:12] LABS: BASO % 0.4 % (0-2.0); EOS % 3.5 % (0-4.5); HEMATOCRIT 37.9 % (32.4-45.2); HEMOGLOBIN 12.4 GM/dL (10.7-15.3); MCH 27.8 pg (25.7-33.7); MCHC 32.6 g/dl (32.0-36.0); MEAN CELL VOLUME 85.2 fl (80-96); MEAN PLT VOLUME 9.2 fl (7.5-11.1); MONO % 8.2 % (3.8-10.2); NEUT % 70.9 % (42.8-82.8); PLATELET COUNT 179 10^3/uL (134-434); RBC 4.45 M/mm3 (3.60-5.2); WHITE BLOOD COUNT 8.8 K/mm3 (4.0-10.0)
[2022-05-11 09:33] LABS: CALCIUM 8.7 mg/dL (8.5-10.1)
[2022-05-11 09:34] LABS: MAGNESIUM 2.3 mg/dL (1.8-2.4)
[2022-05-11 09:37] LABS: CREATININE 0.7 mg/dL (0.55-1.3)
[2022-05-11] MEDS: [UNRECOGNIZED DRUG - OTHER] PO SCH (11:51)
[2022-05-11] MEDS: ALOSETRON HCL 0.5 MG PO SCH (11:52)
[2022-05-11] MEDS: BENZTROPINE MESYLATE 1 MG TABLET PO SCH (11:53)
[2022-05-11] MEDS: VALSARTAN 160 MG TABLET PO SCH (11:54)
[2022-05-11] MEDS: METOPROLOL TARTRATE 25 MG TABLET (FP) PO SCH (11:56)
[2022-05-11] MEDS: amLODIPine BESYLATE 10 MG TABLET (FP) PO SCH (11:58)
[2022-05-11] MEDS: ENOXAPARIN NA (PORCINE) 40 MG/0.4 ML DISP.SYRIN SQ SCH (11:58)
[2022-05-11] MEDS: PATIENT'S OWN MEDICATION (NON-FORMULARY) (Vibegron [Gemtesa] 75 MG Tablet) PO SCH (12:01)
[2022-05-11] MEDS ORDERED: lamoTRIgine 100 MG TABLET PO SCH (12:30)
[2022-05-11] MEDS: buPROPion HCL 100 MG TABLET PO SCH (13:56)
[2022-05-11] MEDS: LURASIDONE HCL 40 MG TABLET PO SCH (13:56)
[2022-05-11 15:41] VITALS: BP 136/64; PULSE 64; RESP 18; TEMP 99.5
[2022-05-11] MEDS ORDERED: VANCOMYCIN 250 MG/5 ML ORAL SOLUTION PO SCH (18:00)
== END 2022-05-11 17:59 | disposition home or self-care (01) | DRG 463 ==
LOC: JER 09:14 → JERBED 16:08 → J5S 22:57 → J8W 05-11 00:03
PROVIDERS: ADMIT Internal Medicine; ATTEND Internal Medicine
DX: N39.0 Urinary tract infection, site not specified (principal); G92.8 Other toxic encephalopathy; A04.72 Enterocolitis due to Clostridium difficile, not specified as recurrent; M32.9 Systemic lupus erythematosus, unspecified; R56.9 Unspecified convulsions; I25.10 Atherosclerotic heart disease of native coronary artery without angina pectoris; E03.9 Hypothyroidism, unspecified; E11.9 Type 2 diabetes mellitus without complications; I10 Essential (primary) hypertension; E78.5 Hyperlipidemia, unspecified; F31.9 Bipolar disorder, unspecified; F41.9 Anxiety disorder, unspecified; Z91.51 Personal history of suicidal behavior; E66.9 Obesity, unspecified
CPT/HCPCS: 0241U-QW; 36415; 70450-TC; 74176-TC; 80048; 80053; 81003; 82962; 83605; 83690; 83735; 84100; 85025; 85027; 85610; 85730; 86850; 86870; 86900; 86901; 86902; 87045; 87046; 87086; 87186; 87324; 87449; 93005; 93010; 97116-GP; 97161-GP; 99285-25

== ENCOUNTER 2022-05-27 10:56 | Inpatient (IN) | payer OTHER ==
[2022-05-27] MEDS ORDERED: SODIUM CHLORIDE 1,000 ML IV STA (12:33)
[2022-05-27 13:55] LABS: BASO % 0.5 % (0-2.0); EOS % 0.9 % (0-4.5); HEMATOCRIT 41.6 % (32.4-45.2); HEMOGLOBIN 13.5 GM/dL (10.7-15.3); LYMPH % 21.8 % (8-40); MCH 27.5 pg (25.7-33.7); MCHC 32.4 g/dl (32.0-36.0); MEAN CELL VOLUME 84.7 fl (80-96); MEAN PLT VOLUME 10.3 fl (7.5-11.1); MONO % 5.5 % (3.8-10.2); NEUT % 71.3 % (42.8-82.8); PLATELET COUNT 122 10^3/uL (134-434); RBC 4.91 M/mm3 (3.60-5.2); RDW 16.1 % (11.6-15.6); WHITE BLOOD COUNT 7.4 K/mm3 (4.0-10.0)
[2022-05-27 14:12] LABS: ALBUMIN 3.4 g/dl (3.4-5.0); BLOOD UREA NITROGEN 10.6 mg/dL (7-18); CALCIUM 9.2 mg/dL (8.5-10.1); MAGNESIUM 2.3 mg/dL (1.8-2.4)
[2022-05-27 14:15] LABS: CREATININE 0.5 mg/dL (0.55-1.3)
[2022-05-27 14:17] LABS: BILIRUBIN,TOTAL 0.6 mg/dL (0.2-1); TOT PROT 7.6 g/dl (6.4-8.2)
[2022-05-27 14:38] LABS: EPI CELLS 3 /uL (0-25.1); HYALINE CASTS 0 /uL (0-3.1); PH,URINE 7.5 (5.0-8.0); URINE APPEARANCE CLOUDY; URINE BACTERIA 171 /uL (0-1359); URINE BILIRUBIN NEGATIVE (NEGATIVE); URINE COLOR YELLOW; URINE GLUCOSE (UA) NEGATIVE (NEGATIVE); URINE KETONE 1+ (NEGATIVE); URINE LEUK ESTERASE 3+ (NEGATIVE); URINE NITRITE NEGATIVE (NEGATIVE); URINE PROTEIN 1+ (NEGATIVE); URINE UROBILINOGEN 0.2 mg/dL (0.2-1.0); URINE WBC 1830 /uL (0-25.8)
[2022-05-27 15:17] LABS: URINE RBC 83 /uL (0-23.9)
[2022-05-27 18:16] LABS: PHENCYCLIDINE,URINE NEGATIVE (NEGATIVE)
[2022-05-27 18:17] LABS: COCAINE, UR NEGATIVE (NEGATIVE); METHADONE, UR NEGATIVE (NEGATIVE); OPIATES, URI NEGATIVE (NEGATIVE); URINE AMPHETAMINES NEGATIVE (NEGATIVE); URINE BARBITURATES NEGATIVE (NEGATIVE)
[2022-05-27 18:32] LABS: URINE BENZODIAZEPINES NEGATIVE (NEGATIVE)
[2022-05-27] MEDS: VANCOMYCIN 250 MG/5 ML ORAL SOLUTION PO SCH (21:40)
[2022-05-27] MEDS ORDERED: [UNRECOGNIZED DRUG - OTHER] PO SCH (22:00)
[2022-05-28] MEDS ORDERED: METOPROLOL TARTRATE 25 MG TABLET (FP) ONE ×2 (00:16→10:12)
[2022-05-28] MEDS ORDERED: QUEtiapine FUMARATE 100 MG TABLET (FP) ONE (00:17)
[2022-05-28] MEDS: BENZTROPINE MESYLATE 1 MG TABLET PO SCH ×3 (00:34→21:21)
[2022-05-28] MEDS: QUEtiapine FUMARATE 100 MG TABLET (FP) PO SCH ×2 (00:34→21:20)
[2022-05-28] MEDS: METOPROLOL TARTRATE 25 MG TABLET (FP) PO SCH ×3 (00:34→21:20)
[2022-05-28] MEDS: VANCOMYCIN 250 MG/5 ML ORAL SOLUTION PO SCH ×5 (03:40→23:25)
[2022-05-28 08:01] LABS: BASO % 0.2 % (0-2.0); EOS % 1.6 % (0-4.5); HEMATOCRIT 40.6 % (32.4-45.2); HEMOGLOBIN 13.3 GM/dL (10.7-15.3); LYMPH % 20.7 % (8-40); MCH 27.9 pg (25.7-33.7); MCHC 32.8 g/dl (32.0-36.0); MEAN CELL VOLUME 84.9 fl (80-96); MEAN PLT VOLUME 9.9 fl (7.5-11.1); MONO % 5.8 % (3.8-10.2); NEUT % 71.7 % (42.8-82.8); PLATELET COUNT 133 10^3/uL (134-434); RBC 4.79 M/mm3 (3.60-5.2); WHITE BLOOD COUNT 6.8 K/mm3 (4.0-10.0)
[2022-05-28 08:28] LABS: ALBUMIN 3.5 g/dl (3.4-5.0); BLOOD UREA NITROGEN 14.8 mg/dL (7-18); MAGNESIUM 2.2 mg/dL (1.8-2.4)
[2022-05-28 08:31] LABS: PHOSPHOROUS 3.2 mg/dL (2.5-4.9)
[2022-05-28 08:32] LABS: CREATININE 0.7 mg/dL (0.55-1.3)
[2022-05-28 08:33] LABS: BILIRUBIN,TOTAL 0.6 mg/dL (0.2-1); TOT PROT 7.4 g/dl (6.4-8.2)
[2022-05-28] MEDS ORDERED: PATIENT'S OWN MEDICATION (NON-FORMULARY) (Cariprazine Hcl [Vraylar] 1.5 MG Capsule) PO SCH (10:00)
[2022-05-28] MEDS ORDERED: amLODIPine BESYLATE 10 MG TABLET (FP) ONE (10:12)
[2022-05-28] MEDS ORDERED: ENOXAPARIN NA (PORCINE) 40 MG/0.4 ML DISP.SYRIN SQ ONE (10:12)
[2022-05-28] MEDS: ENOXAPARIN NA (PORCINE) 40 MG/0.4 ML DISP.SYRIN SQ SCH (10:17)
[2022-05-28] MEDS: amLODIPine BESYLATE 10 MG TABLET (FP) PO SCH (10:17)
[2022-05-28 11:10] VITALS: BMI 33.6
[2022-05-28] MEDS: buPROPion HCL 100 MG TABLET PO SCH (11:32)
[2022-05-28] MEDS: GABAPENTIN 400 MG CAPSULE PO SCH ×2 (18:06→21:21)
[2022-05-29] MEDS: VANCOMYCIN 250 MG/5 ML ORAL SOLUTION PO SCH ×2 (05:54→14:01)
[2022-05-29 06:35] VITALS: BP 144/74; PULSE 55; RESP 20; TEMP 97.9
[2022-05-29] MEDS ORDERED: LURASIDONE HCL 40 MG TABLET PO SCH (10:00)
[2022-05-29] MEDS: METOPROLOL TARTRATE 25 MG TABLET (FP) PO SCH (10:21)
[2022-05-29] MEDS: GABAPENTIN 400 MG CAPSULE PO SCH (10:22)
[2022-05-29] MEDS: amLODIPine BESYLATE 10 MG TABLET (FP) PO SCH (10:22)
[2022-05-29] MEDS: ENOXAPARIN NA (PORCINE) 40 MG/0.4 ML DISP.SYRIN SQ SCH (10:23)
[2022-05-29] MEDS: BENZTROPINE MESYLATE 1 MG TABLET PO SCH (10:23)
[2022-05-29] MEDS: buPROPion HCL 100 MG TABLET PO SCH (11:42)
== END 2022-05-29 14:55 | disposition home or self-care (01) | DRG 248 ==
LOC: JER 10:56 → JERBED 18:06 → J8W 05-28 14:40
PROVIDERS: ADMIT Internal Medicine; ATTEND Nurse Practitioner Acute Care
DX: A04.72 Enterocolitis due to Clostridium difficile, not specified as recurrent (principal); I25.10 Atherosclerotic heart disease of native coronary artery without angina pectoris; E03.9 Hypothyroidism, unspecified; K58.9 Irritable bowel syndrome, unspecified; I10 Essential (primary) hypertension; E78.5 Hyperlipidemia, unspecified; G93.41 Metabolic encephalopathy; E11.9 Type 2 diabetes mellitus without complications; K21.9 Gastro-esophageal reflux disease without esophagitis; F41.9 Anxiety disorder, unspecified; F31.9 Bipolar disorder, unspecified; M32.9 Systemic lupus erythematosus, unspecified; Z91.51 Personal history of suicidal behavior; D69.3 Immune thrombocytopenic purpura
CPT/HCPCS: 0241U-QW; 36415; 71045-TC-FY; 74176-TC; 80053; 80307; 81003; 82962; 83605; 83690; 83735; 84100; 84443; 85025; 87040; 87086; 87186; 93005; 93010; 99285-25

== ENCOUNTER 2022-07-27 17:44 | Observation (INO) | payer OTHER ==
[2022-07-27] MEDS ORDERED: SODIUM CHLORIDE 0.9% 1000 ML INFUS.BAG IV ONE (18:30)
[2022-07-27 19:43] LABS: HEMATOCRIT 36.6 % (32.4-45.2); HEMOGLOBIN 12.4 G/dL (10.7-15.3); MCH 28.6 pg (25.7-33.7); MCHC 33.9 g/dl (32.0-36.0); MEAN CELL VOLUME 84.2 fl (80-96); MEAN PLT VOLUME 10.5 fl (7.5-11.1); PLATELET COUNT 94.5 10^3/uL (134-434); RBC 4.35 10^6/uL (3.60-5.2); RDW 15.8 % (11.6-15.6); WHITE BLOOD COUNT 8.7 10^3/uL (4.0-10.8)
[2022-07-27 19:48] LABS: INR 1.09 (0.83-1.09); PROTHROMBIN TIME (PATIENT) 12.6 SEC (9.7-13.0)
[2022-07-27 19:51] LABS: ACTIVATED PTT 29.7 SECONDS (25.2-36.5)
[2022-07-27 19:55] LABS: ALBUMIN 3.6 g/dl (3.4-5.0); BILIRUBIN,TOTAL 1.1 mg/dl (0.2-1); CALCIUM 8.7 mg/dl (8.5-10); CREATININE 0.7 mg/dl (0.55-1.3); MAGNESIUM 2.1 mg/dL (1.8-2.4); TOT PROT 7.2 g/dl (6.4-8.2)
[2022-07-27 20:18] LABS: PLATELET ESTIMATE DECREASED
[2022-07-27 20:52] LABS: VENOUS O2 SATURATION 85.8 % (70-80); VENOUS PCO2 43.5 mmHg (38-52); VENOUS PH 7.41 (7.310-7.410)
[2022-07-27 23:08] LABS: OPIATES, URI NEGATIVE (NEGATIVE)
[2022-07-27 23:09] LABS: PHENCYCLIDINE,URINE NEGATIVE (NEGATIVE); URINE AMPHETAMINES NEGATIVE (NEGATIVE)
[2022-07-27 23:10] LABS: COCAINE, UR NEGATIVE (NEGATIVE); METHADONE, UR NEGATIVE (NEGATIVE); URINE BARBITURATES NEGATIVE (NEGATIVE); URINE BENZODIAZEPINES NEGATIVE (NEGATIVE)
[2022-07-28 04:11] VITALS: BMI 35.1
[2022-07-28 08:36] LABS: ALBUMIN 3.6 g/dl (3.4-5.0); CALCIUM 8.7 mg/dl (8.5-10); CREATININE 0.6 mg/dl (0.55-1.3); TOT PROT 7.2 g/dl (6.4-8.2)
[2022-07-28 09:49] LABS: BASO % 0.5 % (0-2.0); EOS % 2.6 % (0-4.5); HEMATOCRIT 37.4 % (32.4-45.2); HEMOGLOBIN 12.5 GM/dL (10.7-15.3); LYMPH % 19.3 % (8-40); MCH 27.7 pg (25.7-33.7); MCHC 33.4 g/dl (32.0-36.0); MEAN CELL VOLUME 82.8 fl (80-96); MEAN PLT VOLUME 10.7 fl (7.5-11.1); NEUT % 68.6 % (42.8-82.8); PLATELET COUNT 88 10^3/uL (134-434); RBC 4.52 M/mm3 (3.60-5.2); RDW 16.1 % (11.6-15.6)
[2022-07-29 08:06] LABS: ALBUMIN 3.7 g/dl (3.4-5.0); BILIRUBIN,TOTAL 1.1 mg/dl (0.2-1); CALCIUM 9.1 mg/dl (8.5-10); CREATININE 0.8 mg/dl (0.55-1.3); TOT PROT 7.3 g/dl (6.4-8.2)
[2022-07-29 09:27] LABS: BASO % 0.6 % (0-2.0); EOS % 1.7 % (0-4.5); HEMATOCRIT 39.3 % (32.4-45.2); LYMPH % 19.1 % (8-40); MCH 27.7 pg (25.7-33.7); MCHC 33.2 g/dl (32.0-36.0); MEAN CELL VOLUME 83.6 fl (80-96); MEAN PLT VOLUME 10.4 fl (7.5-11.1); MONO % 8.7 % (3.8-10.2); NEUT % 69.9 % (42.8-82.8); PLATELET COUNT 83 10^3/uL (134-434); RDW 16.4 % (11.6-15.6); WHITE BLOOD COUNT 9.8 K/mm3 (4.0-10.0)
[2022-07-29] MEDS: POTASSIUM CHLORIDE TABS 10 MEQ TABLET.ER (FP) PO ONE ×2 (12:07→12:12)
[2022-07-29 14:34] VITALS: BP 156/68; PULSE 85; RESP 18; TEMP 99.5
[2022-07-30] MEDS ORDERED: ESCITALOPRAM OXALATE 20 MG TABLET PO SCH (10:00)
== END 2022-07-29 18:28 | disposition home or self-care (01) ==
LOC: FER 17:44 → UNDOADMOB 21:03 → FM/S 21:03 → INTOOBSV 21:03 → FM/S 21:54
PROVIDERS: ADMIT Internal Medicine
PROC: 3E0337Z Introduction of Electrolytic and Water Balance Substance into Peripheral Vein, Percutaneous Approach (ICD-10-PCS; principal; 2022-07-27)
DX: I25.10 Atherosclerotic heart disease of native coronary artery without angina pectoris (principal); I11.9 Hypertensive heart disease without heart failure; E78.5 Hyperlipidemia, unspecified; E03.9 Hypothyroidism, unspecified; R56.9 Unspecified convulsions; Z87.440 Personal history of urinary (tract) infections; M32.9 Systemic lupus erythematosus, unspecified; K21.9 Gastro-esophageal reflux disease without esophagitis; F12.90 Cannabis use, unspecified, uncomplicated; N81.10 Cystocele, unspecified; F31.9 Bipolar disorder, unspecified; F41.8 Other specified anxiety disorders; Z96.653 Presence of artificial knee joint, bilateral; R41.0 Disorientation, unspecified
CPT/HCPCS: 0241U-QW; 36415; 70450-TC; 71045-TC-FY; 74176-TC; 80053; 80307; 81003; 81015; 82803; 83605; 83690; 83735; 84443; 84484; 85025; 85027; 85610; 85730; 87040; 87070; 87076; 87086; 87186; 87205; 93005; 97116-GP; 97162-GP; 99285-25; G0378

== ENCOUNTER 2022-09-15 09:53 | Inpatient (IN) | payer OTHER ==
[2022-09-15 11:16] LABS: HEMATOCRIT 40.3 % (32.4-45.2); HEMOGLOBIN 13.7 GM/dL (10.7-15.3); MCH 26.8 pg (25.7-33.7); MEAN CELL VOLUME 78.9 fl (80-96); MEAN PLT VOLUME 9.7 fl (7.5-11.1); PLATELET COUNT 188 10^3/uL (134-434); RBC 5.12 M/mm3 (3.60-5.2); RDW 17.6 % (11.6-15.6); WHITE BLOOD COUNT 10.8 K/mm3 (4.0-10.0)
[2022-09-15 11:17] LABS: BASO % 0.8 % (0-2.0); EOS % 0.2 % (0-4.5); LYMPH % 21.9 % (8-40); MONO % 4.2 % (3.8-10.2); NEUT % 72.9 % (42.8-82.8); VENOUS BASE EXCESS -1.9 mmol/L (-2-2); VENOUS O2 SATURATION 50.1 % (70-80); VENOUS PCO2 35.2 mmHg (38-52); VENOUS PH 7.414 (7.310-7.410)
[2022-09-15 11:22] LABS: INR 1.03 (0.83-1.09); PROTHROMBIN TIME (PATIENT) 11.9 SEC (9.7-13.0)
[2022-09-15] MEDS ORDERED: SODIUM CHLORIDE 0.9% 500 ML INFUS.BAG IV ONE (11:24)
[2022-09-15 11:35] LABS: POTASSIUM 3.4 mmol/L (3.5-5.1)
[2022-09-15 11:37] LABS: BLOOD UREA NITROGEN 17.9 mg/dL (7-18); CALCIUM 9.4 mg/dL (8.5-10.1)
[2022-09-15 11:40] LABS: CREATININE 0.7 mg/dL (0.55-1.3)
[2022-09-15 11:42] LABS: BILIRUBIN,TOTAL 0.6 mg/dL (0.2-1); TOT PROT 8.6 g/dl (6.4-8.2)
[2022-09-15 13:11] LABS: MAGNESIUM 2.3 mg/dL (1.8-2.4)
[2022-09-15 14:10] LABS: EPI CELLS 20 /uL (0-25.1); HYALINE CASTS 1 /uL (0-3.1); PH,URINE 5.5 (5.0-8.0); URINE APPEARANCE CLEAR; URINE BACTERIA 35 /uL (0-1359); URINE BILIRUBIN NEGATIVE (NEGATIVE); URINE COLOR YELLOW; URINE GLUCOSE (UA) NEGATIVE (NEGATIVE); URINE KETONE 3+ (NEGATIVE); URINE LEUK ESTERASE 2+ (NEGATIVE); URINE NITRITE NEGATIVE (NEGATIVE); URINE PROTEIN NEGATIVE (NEGATIVE); URINE RBC 36 /uL (0-23.9); URINE UROBILINOGEN 0.2 mg/dL (0.2-1.0); URINE WBC 386 /uL (0-25.8)
[2022-09-15] MEDS: SODIUM CHLORIDE 1,000 ML IV SCH (15:17)
[2022-09-15 15:32] VITALS: RESP 18
[2022-09-15] MEDS ORDERED: GABAPENTIN 400 MG CAPSULE ONE ×2 (16:38→22:08)
[2022-09-15] MEDS: INSULIN SLIDING SCALE (NOVOLOG) 1 VIAL SQ SCH ×2 (17:35→22:16)
[2022-09-15] MEDS: CEFTRIAXONE 1 GM in DEXTROSE 5%-WATER - 50 ML IVPB SCH (17:36)
[2022-09-15] MEDS: GABAPENTIN 400 MG CAPSULE PO SCH ×2 (17:36→23:14)
[2022-09-15] MEDS: VANCOMYCIN 250 MG/5 ML ORAL SOLUTION PO SCH (17:36)
[2022-09-15] MEDS ORDERED: CEFTRIAXONE 1 GM/50 ML BAG ONE (17:38)
[2022-09-15] MEDS ORDERED: QUEtiapine FUMARATE 100 MG TABLET (FP) PO SCH (22:00)
[2022-09-15] MEDS ORDERED: METOPROLOL TARTRATE 50 MG TABLET (FP) ONE (22:08)
[2022-09-15] MEDS ORDERED: QUEtiapine FUMARATE 100 MG TABLET (FP) ONE (22:08)
[2022-09-15] MEDS: METOPROLOL TARTRATE 50 MG TABLET (FP) PO SCH (23:14)
[2022-09-16] MEDS ORDERED: ONDANSETRON 4 MG/2 ML VIAL IVPUSH ONE (00:04)
[2022-09-16] MEDS ORDERED: ONDANSETRON 4 MG/2 ML VIAL ONE (00:12)
[2022-09-16] MEDS: VANCOMYCIN 250 MG/5 ML ORAL SOLUTION PO SCH ×5 (01:28→18:02)
[2022-09-16 01:44] VITALS: BMI 31.1
[2022-09-16] MEDS: INSULIN SLIDING SCALE (NOVOLOG) 1 VIAL SQ SCH ×4 (06:08→21:36)
[2022-09-16] MEDS ORDERED: ACETAMINOPHEN 325 MG TABLET (FP) PO PRN ×2 (08:01→08:19)
[2022-09-16 08:26] LABS: BASO % 0.3 % (0-2.0); EOS % 1.3 % (0-4.5); HEMATOCRIT 36.1 % (32.4-45.2); HEMOGLOBIN 12.3 GM/dL (10.7-15.3); LYMPH % 24.6 % (8-40); MCH 26.7 pg (25.7-33.7); MEAN CELL VOLUME 78.6 fl (80-96); MEAN PLT VOLUME 9.2 fl (7.5-11.1); MONO % 7.3 % (3.8-10.2); NEUT % 66.5 % (42.8-82.8); PLATELET COUNT 134 10^3/uL (134-434); RBC 4.59 M/mm3 (3.60-5.2); RDW 17.3 % (11.6-15.6); WHITE BLOOD COUNT 8.8 K/mm3 (4.0-10.0)
[2022-09-16 08:41] LABS: POTASSIUM 3.1 mmol/L (3.5-5.1)
[2022-09-16 08:49] LABS: CALCIUM 9.2 mg/dL (8.5-10.1)
[2022-09-16 08:50] LABS: ALBUMIN 3.6 g/dl (3.4-5.0)
[2022-09-16 08:53] LABS: CREATININE 0.6 mg/dL (0.55-1.3); PHOSPHOROUS 3.2 mg/dL (2.5-4.9)
[2022-09-16 08:54] LABS: BILIRUBIN,TOTAL 0.6 mg/dL (0.2-1); TOT PROT 7.5 g/dl (6.4-8.2)
[2022-09-16] MEDS ORDERED: POTASSIUM CHLORIDE TABS 20 MEQ TABLET.ER (FP) PO ONE (09:09)
[2022-09-16] MEDS: GABAPENTIN 400 MG CAPSULE PO SCH ×5 (10:00→21:28)
[2022-09-16] MEDS: CEFTRIAXONE 1 GM in DEXTROSE 5%-WATER - 50 ML IVPB SCH (10:34)
[2022-09-16] MEDS: PANTOPRAZOLE 40 MG TABLET PO SCH ×2 (10:35→12:47)
[2022-09-16] MEDS: METOPROLOL TARTRATE 50 MG TABLET (FP) PO SCH ×4 (10:35→21:27)
[2022-09-16] MEDS: lamoTRIgine 100 MG TABLET PO SCH ×3 (10:35→21:27)
[2022-09-16] MEDS: amLODIPine BESYLATE 10 MG TABLET (FP) PO SCH ×2 (10:35→12:47)
[2022-09-16] MEDS: ENOXAPARIN NA (PORCINE) 40 MG/0.4 ML DISP.SYRIN SQ SCH (10:35)
[2022-09-16] MEDS: ESCITALOPRAM OXALATE 20 MG TABLET PO SCH ×2 (10:35→12:47)
[2022-09-16] MEDS: SODIUM CHLORIDE 1,000 ML IV SCH (16:37)
[2022-09-16] MEDS ORDERED: KCL 10 MEQ IVPB 10 MEQ/100 ML INFUS.BAG IVPB SCH (18:30)
[2022-09-16] MEDS ORDERED: QUEtiapine FUMARATE 50 MG TABLET PO SCH (20:30)
[2022-09-16] MEDS: TOPIRAMATE 25 MG TABLET PO SCH (21:28)
[2022-09-16] MEDS: PRAMIPEXOLE DIHYDROCHLORIDE 0.125 MG TABLET PO SCH (21:28)
[2022-09-16] MEDS ORDERED: MELATONIN 1 MG TABLET PO SCH (22:00)
[2022-09-17] MEDS: VANCOMYCIN 250 MG/5 ML ORAL SOLUTION PO SCH ×3 (01:34→11:56)
[2022-09-17] MEDS ORDERED: ALBUTEROL SO4 HFA INHALER IH PRN (02:13)
[2022-09-17] MEDS: INSULIN SLIDING SCALE (NOVOLOG) 1 VIAL SQ SCH ×2 (06:52→11:00)
[2022-09-17 07:37] LABS: HEMATOCRIT 39.1 % (32.4-45.2); MCH 26.6 pg (25.7-33.7); MCHC 33.2 g/dl (32.0-36.0); MEAN CELL VOLUME 80.2 fl (80-96); MEAN PLT VOLUME 9.4 fl (7.5-11.1); PLATELET COUNT 130 10^3/uL (134-434); RBC 4.88 M/mm3 (3.60-5.2); WHITE BLOOD COUNT 9.9 K/mm3 (4.0-10.0)
[2022-09-17 08:01] LABS: MAGNESIUM 2.1 mg/dL (1.8-2.4)
[2022-09-17 08:04] LABS: CREATININE 0.8 mg/dL (0.55-1.3)
[2022-09-17 08:10] LABS: BLOOD UREA NITROGEN 13.5 mg/dL (7-18)
[2022-09-17] MEDS: lamoTRIgine 100 MG TABLET PO SCH (08:25)
[2022-09-17 09:07] VITALS: BP 133/70; PULSE 69; TEMP 98.3
[2022-09-17] MEDS: ENOXAPARIN NA (PORCINE) 40 MG/0.4 ML DISP.SYRIN SQ SCH (10:21)
[2022-09-17] MEDS: amLODIPine BESYLATE 10 MG TABLET (FP) PO SCH (10:22)
[2022-09-17] MEDS: ESCITALOPRAM OXALATE 20 MG TABLET PO SCH (10:22)
[2022-09-17] MEDS: PRAMIPEXOLE DIHYDROCHLORIDE 0.125 MG TABLET PO SCH (10:22)
[2022-09-17] MEDS: TOPIRAMATE 25 MG TABLET PO SCH (10:22)
[2022-09-17] MEDS: GABAPENTIN 400 MG CAPSULE PO SCH (10:22)
[2022-09-17] MEDS: METOPROLOL TARTRATE 50 MG TABLET (FP) PO SCH (10:22)
[2022-09-17] MEDS: PANTOPRAZOLE 40 MG TABLET PO SCH (10:22)
[2022-09-17] MEDS ORDERED: KCL 10 MEQ IVPB 10 MEQ/100 ML INFUS.BAG IVPB SCH (10:30)
[2022-09-17] MEDS ORDERED: POTASSIUM CHLORIDE TABS 10 MEQ TABLET.ER (FP) PO ONE (10:30)
[2022-09-17] MEDS ORDERED: ESCITALOPRAM OXALATE 10 MG TABLET PO SCH (10:33)
== END 2022-09-17 12:27 | disposition home or self-care (01) | DRG 52 ==
LOC: JER 09:53 → JERBED 13:52 → J7W 09-16 00:41
PROVIDERS: ADMIT Internal Medicine; ATTEND Family Medicine
DX: G92.8 Other toxic encephalopathy (principal); I25.10 Atherosclerotic heart disease of native coronary artery without angina pectoris; E03.9 Hypothyroidism, unspecified; I10 Essential (primary) hypertension; E78.5 Hyperlipidemia, unspecified; A04.72 Enterocolitis due to Clostridium difficile, not specified as recurrent; F41.9 Anxiety disorder, unspecified; E87.6 Hypokalemia; F31.9 Bipolar disorder, unspecified; Z91.51 Personal history of suicidal behavior; F43.10 Post-traumatic stress disorder, unspecified; N39.0 Urinary tract infection, site not specified; G25.81 Restless legs syndrome; G43.909 Migraine, unspecified, not intractable, without status migrainosus
CPT/HCPCS: 0241U-QW; 36415; 70450-TC; 70551-TC; 71045-TC-FY; 74176-TC; 80048; 80053; 81003; 82140; 82550; 82553; 82803; 82962; 83605; 83690; 83735; 84100; 84436; 84443; 84484; 85025; 85027; 85610; 85730; 87040; 87086; 87186; 87324; 87449; 93005; 93010; 99285-25

== ENCOUNTER 2023-08-25 15:15 | Observation (INO) | payer OTHER ==
[2023-08-25 15:31] VITALS: BMI 31.8
[2023-08-25 18:28] LABS: BASO % 0.6 % (0-2.0); EOS % 3.2 % (0-4.5); HEMOGLOBIN 11.9 GM/dL (10.7-15.3); LYMPH % 37.7 % (8-40); MCH 24.3 pg (25.7-33.7); MCHC 32.3 g/dl (32.0-36.0); MEAN CELL VOLUME 75.4 fl (80-96); MEAN PLT VOLUME 8.6 fl (7.5-11.1); MONO % 5.9 % (3.8-10.2); NEUT % 52.6 % (42.8-82.8); PLATELET COUNT 192 10^3/uL (134-434); RBC 4.91 M/mm3 (3.60-5.2); RDW 29.5 % (11.6-15.6); WHITE BLOOD COUNT 7.9 K/mm3 (4.0-10.0)
[2023-08-25 18:36] LABS: INR 1.02 (0.83-1.09); PROTHROMBIN TIME (PATIENT) 11.8 SEC (9.7-13.0)
[2023-08-25 18:39] LABS: ACTIVATED PTT 29.3 SECONDS (25.2-36.5)
[2023-08-25] MEDS ORDERED: ASPIRIN 81 MG CHEWABLE TABLETS ONE (18:40)
[2023-08-25] MEDS: ASPIRIN 81 MG CHEWABLE TABLETS PO ONE (18:45)
[2023-08-25 18:54] LABS: POTASSIUM 3.9 mmol/L (3.5-5.1)
[2023-08-25 18:55] LABS: CALCIUM 9.1 mg/dL (8.5-10.1)
[2023-08-25 18:56] LABS: ALBUMIN 3.6 g/dl (3.4-5.0); BLOOD UREA NITROGEN 15.6 mg/dL (7-18)
[2023-08-25 18:59] LABS: CREATININE 0.7 mg/dL (0.55-1.3)
[2023-08-25 19:00] LABS: BILIRUBIN,TOTAL 0.5 mg/dL (0.2-1)
[2023-08-25 19:01] LABS: TOT PROT 7.2 g/dl (6.4-8.2)
[2023-08-25 19:03] LABS: ANISOCYTOSIS 3+; MACROCYTOSIS 0; OVALOCYTE 1+
[2023-08-26] MEDS ORDERED: ACETAMINOPHEN 325 MG TABLET (FP) PO PRN (04:30)
[2023-08-26 06:23] LABS: POTASSIUM 3.9 mmol/L (3.5-5.1)
[2023-08-26 06:24] LABS: CALCIUM 8.5 mg/dL (8.5-10.1)
[2023-08-26 06:25] LABS: BLOOD UREA NITROGEN 17.3 mg/dL (7-18)
[2023-08-26 06:28] LABS: CHOLESTEROL 105 mg/dL (50-200); CREATININE 0.8 mg/dL (0.55-1.3)
[2023-08-26 06:30] LABS: LDL CHOLESTEROL (ONLY SJRH) 51 mg/dL (5-100)
[2023-08-26 06:31] LABS: HDL CHOLESTEROL 45 mg/dL (40-60)
[2023-08-26] MEDS ORDERED: PANTOPRAZOLE 40 MG TABLET PO ONE (06:39)
[2023-08-26] MEDS: PANTOPRAZOLE 40 MG TABLET PO SCH (06:57)
[2023-08-26 08:04] LABS: BASO % 0.5 % (0-2.0); EOS % 3.7 % (0-4.5); HEMATOCRIT 32.5 % (32.4-45.2); LYMPH % 30.3 % (8-40); MCH 25.5 pg (25.7-33.7); MCHC 33.7 g/dl (32.0-36.0); MEAN CELL VOLUME 75.6 fl (80-96); MEAN PLT VOLUME 9.7 fl (7.5-11.1); MONO % 7.3 % (3.8-10.2); NEUT % 58.2 % (42.8-82.8); PLATELET COUNT 163 10^3/uL (134-434); RDW 29.3 % (11.6-15.6); WHITE BLOOD COUNT 7.3 K/mm3 (4.0-10.0)
[2023-08-26] MEDS: amLODIPine BESYLATE 10 MG TABLET (FP) PO SCH (09:14)
[2023-08-26] MEDS: METOPROLOL TARTRATE 50 MG TABLET (FP) PO SCH (09:14)
[2023-08-26] MEDS: TOPIRAMATE 25 MG TABLET PO SCH (09:14)
[2023-08-26] MEDS: ESCITALOPRAM OXALATE 10 MG TABLET PO SCH (09:14)
[2023-08-26] MEDS: ASPIRIN 81 MG CHEWABLE TABLETS PO SCH (09:14)
[2023-08-26 14:40] VITALS: RESP 16
[2023-08-26] MEDS: ATORVASTATIN CA 20 MG TABLET (FP) PO SCH (21:31)
[2023-08-26] MEDS: MELATONIN 5 MG TABLETS PO ONE (22:21)
[2023-08-27 14:59] VITALS: BP 114/67; PULSE 54; TEMP 98.4
== END 2023-08-27 04:50 | disposition home or self-care (01) ==
LOC: JER 15:15 → JERBED 19:17 → J4S 08-26 16:26
PROVIDERS: ADMIT Internal Medicine; ATTEND Internal Medicine
DX: R07.9 Chest pain, unspecified (principal); M32.9 Systemic lupus erythematosus, unspecified; G40.909 Epilepsy, unspecified, not intractable, without status epilepticus; I10 Essential (primary) hypertension; E78.5 Hyperlipidemia, unspecified; Z96.653 Presence of artificial knee joint, bilateral; Z91.041 Radiographic dye allergy status; R07.2 Precordial pain; E11.9 Type 2 diabetes mellitus without complications; F31.9 Bipolar disorder, unspecified; Z98.84 Bariatric surgery status; I42.2 Other hypertrophic cardiomyopathy; F17.290 Nicotine dependence, other tobacco product, uncomplicated; Z90.49 Acquired absence of other specified parts of digestive tract; F17.210 Nicotine dependence, cigarettes, uncomplicated; Z88.5 Allergy status to narcotic agent; F41.9 Anxiety disorder, unspecified
CPT/HCPCS: 36415; 71045-TC-FY; 80048; 80053; 80061; 82550; 82962; 83735; 84484; 85025; 85610; 85730; 93005; 93010; 99285-25; G0378